=== PATIENT | female | born 1940 | race Caucasian/White ===

== ENCOUNTER 2017-08-31 00:20 | Inpatient (IN) ==
[2017-08-31] MEDS ORDERED: LEVOFLOXACIN INJ 750 MG in PREMIX 1 EACH IV STA (01:14)
[2017-08-31] MEDS ORDERED: ALBUTEROL/IPRATROPIUM 3 ML NEB RESP TX STA (01:14)
[2017-08-31] MEDS ORDERED: ONDANSETRON 4 MG/2 ML VIAL IM STA (01:14)
[2017-08-31] MEDS ORDERED: methylPREDNISolone SOD SUC 125 MG/2 ML VIAL IV STA (01:14)
[2017-08-31] MEDS ORDERED: ONDANSETRON 4 MG/2 ML VIAL ONE (01:22)
[2017-08-31] MEDS ORDERED: LEVOFLOXACIN INJ 150 ML IV ONE (01:22)
[2017-08-31] MEDS ORDERED: TERBUTALINE 1 MG/1 ML VIAL SUBCUT ONE (01:22)
[2017-08-31] MEDS ORDERED: methylPREDNISolone SOD SUC 125 MG/2 ML VIAL ONE (01:22)
[2017-08-31] MEDS: TERBUTALINE 1 MG/1 ML VIAL SUBCUT SCH ×3 (01:29→07:29)
[2017-08-31 01:39] LABS: Basophils % 0.3 % (0.0-0.8); Eosinophils # 0.2 10*3/uL (0.0-0.87); Eosinophils % 1.1 % (0.00-10.9); Hematocrit 34.4 VOL% (35.7-47.0); Hemoglobin 11.4 GM/DL (12.0-16.0); Immature Granulocytes % 0.6 %; Immature Granulocytes Absolute 0.08 #; Lymphocytes # 1.1 10*3/uL (1.4-4.0); Lymphocytes % 7.5 % (21.3-54.2); Mean Corpuscular HGB Conc 33.1 GM/DL (32-36); Mean Corpuscular Hemoglobin 30 PG (27-34); Mean Corpuscular Volume 89.1 FL (87-102); Mean Platelet Volume 9.3 FL (9.6-12.0); Monocytes # 0.7 10*3/uL (0.11-0.8); Monocytes % 5.2 % (1.7-12.7); Neutrophils # 11.9 10*3/uL (1.4-7.4); Neutrophils % 85.3 % (38.7-73.9); Platelet Count 283 T/CUMM (130-400); Red Blood Count 3.86 MC/CUMM (3.8-5.5); Red Cell Distribution Width 13.2 % (9.3-17.3)
[2017-08-31 01:52] LABS: PT Patient Result 10.8 SECS; Partial Thromboplastin Time 31.3 SECS (0-40)
[2017-08-31 02:01] LABS: Alanine Aminotransferase 24 U/L (13-56); Albumin 3.3 G/DL (3.4-5.0); Alkaline Phosphatase 124 U/L (45-117); Aspartate Amino Transferase 28 U/L (0-37); Blood Urea Nitrogen 17 MG/DL (7-18); Glucose 141 MG/DL (74-106); Osmolality,Calculated 273.1 MOS/KG (273-304); Sodium 135 MMOL/L (136-145); Total Protein 7.9 G/DL (6.4-8.3); Troponin I Only < 0.015 NG/ML (0.00-0.045)
[2017-08-31] MEDS ORDERED: ACETAMINOPHEN 500 MG TABLET ONE (02:15)
[2017-08-31] MEDS ORDERED: ACETAMINOPHEN 500 MG TABLET PO STA (02:15)
[2017-08-31 02:20] LABS: ABG Base Excess 7.1 MMOL/L (-2.5-2.5); ABG HCO3 32.6 MMOL/L (20-26); ABG Oxygen Saturation 75.4 % (95-100); ABG PCO2 50.3 MM HG (35-48); ABG PH 7.429 (7.35-7.45); ABG TCO2 34.1 MMOL/L (23-27)
[2017-08-31 02:35] LABS: ABG PO2 35.6 MM HG (80-95)
[2017-08-31 03:43] LABS: Apearance,Urine CLEAR (Clear); Bacteria,Urine Moderate /HPF (Few); Bilirubin,Urine Negative (Negative); Blood, Urine Small mg/dL (Negative); Glucose,Urine (UA) 50 mg/dL (Negative); Ketones,Urine Negative (Negative); Mucus,Urine Occasional /LPF (Occasional); Nitrite,Urine Negative (Negative); Protein,Urine Negative; RBC,Urine 1 /HPF (0-4); Urine Color Yellow (Yellow); Urine Specific Gravity 1.011 (1.001-1.035); Urine Urobilinogen < 2.0 EU/DL (0.2-1.0); WBC,Urine 12 /HPF (0-6)
[2017-08-31 03:50] LABS: Barbiturates Screen,Urine Negative (Negative); Benzodiazepines Screen,Urine Negative (Negative); Cannabinoid Screen,Urine Negative (Negative); Opiate Screen,Urine Positive (Negative); Phencyclidine Screen,Urine Negative (Negative)
[2017-08-31] MEDS ORDERED: SODIUM CHLORIDE 0.9% 500 ML IV ONE (04:45)
[2017-08-31] MEDS ORDERED: DEXTROSE 50% 25 GM/50 ML VIAL IV PRN (04:45)
[2017-08-31] MEDS ORDERED: GLUCAGON 1 MG VIAL IM PRN (04:45)
[2017-08-31] MEDS ORDERED: MORPHINE 2 MG/1 ML SYRINGE IV PRN (04:45)
[2017-08-31] MEDS ORDERED: ONDANSETRON 4 MG/2 ML VIAL IV PRN (04:45)
[2017-08-31] MEDS ORDERED: ALBUTEROL/IPRATROPIUM 3 ML NEB RESP TX PRN (04:45)
[2017-08-31 05:14] LABS: ABG HCO3 30.8 MMOL/L (20-26); ABG Oxygen Saturation 94.4 % (95-100); ABG PCO2 45.9 MM HG (35-48); ABG PH 7.445 (7.35-7.45); ABG PO2 75.5 MM HG (80-95); ABG TCO2 32.2 MMOL/L (23-27)
[2017-08-31] MEDS: SODIUM CHLORIDE 0.9% 1,000 ML IV SCH ×3 (06:55→21:57)
[2017-08-31] MEDS: ALBUTEROL/IPRATROPIUM 3 ML NEB RESP TX SCH ×5 (07:28→23:54)
[2017-08-31] MEDS: FOLIC ACID 0.4 MG TABLET PO SCH (08:46)
[2017-08-31] MEDS: PANTOPRAZOLE 40 MG TABLET PO SCH (08:47)
[2017-08-31] MEDS: INSULIN REGULAR 100 UNIT/ML SUBCUT SCH ×4 (08:47→20:44)
[2017-08-31] MEDS: DOCUSATE SODIUM 100 MG CAPSULE PO SCH ×2 (08:47→20:43)
[2017-08-31] MEDS: ENOXAPARIN 40 MG/0.4 ML SYRINGE SUBCUT SCH (08:47)
[2017-08-31] MEDS: CARVEDILOL 25 MG TABLET PO SCH ×2 (08:47→20:44)
[2017-08-31] MEDS: GABAPENTIN 400 MG CAPSULE PO SCH ×3 (08:47→20:44)
[2017-08-31] MEDS: oxyCODONE/ACETAMINOPHEN 5-325 MG TABLET PO PRN ×3 (10:00→21:59)
[2017-08-31] MEDS: amLODIPine 5 MG TABLET PO SCH (12:09)
[2017-08-31] MEDS: methylPREDNISolone SOD SUC 40 MG/1 ML VIAL IV SCH (15:10)
[2017-08-31] MEDS: DEXTROMETHORPHAN ER 6 MG/ML 90 ML/BOTTLE PO PRN (20:40)
[2017-08-31] MEDS: AMITRIPTYLINE 25 MG TABLET PO SCH (20:44)
[2017-08-31] MEDS ORDERED: SKIN HEALING OINT (AQUAPHOR) 50 GM TUBE TOP PRN (22:19)
[2017-09-01] MEDS: methylPREDNISolone SOD SUC 40 MG/1 ML VIAL IV SCH ×2 (02:42→14:04)
[2017-09-01] MEDS: ALBUTEROL/IPRATROPIUM 3 ML NEB RESP TX SCH ×6 (03:16→23:40)
[2017-09-01] MEDS: LEVOFLOXACIN INJ 750 MG in PREMIX 1 EACH IV SCH (05:12)
[2017-09-01] MEDS: SODIUM CHLORIDE 0.9% 1,000 ML IV SCH ×3 (05:17→15:57)
[2017-09-01] MEDS: LEVOTHYROXINE 100 MCG TABLET PO SCH (06:44)
[2017-09-01] MEDS: INSULIN REGULAR 100 UNIT/ML SUBCUT SCH ×4 (09:02→20:25)
[2017-09-01] MEDS: ENOXAPARIN 40 MG/0.4 ML SYRINGE SUBCUT SCH (09:02)
[2017-09-01] MEDS: PANTOPRAZOLE 40 MG TABLET PO SCH (09:03)
[2017-09-01] MEDS: GABAPENTIN 400 MG CAPSULE PO SCH ×3 (09:03→20:23)
[2017-09-01] MEDS: DOCUSATE SODIUM 100 MG CAPSULE PO SCH ×2 (09:03→20:22)
[2017-09-01] MEDS: FOLIC ACID 0.4 MG TABLET PO SCH (09:03)
[2017-09-01] MEDS: CARVEDILOL 25 MG TABLET PO SCH ×2 (09:03→20:23)
[2017-09-01] MEDS: oxyCODONE/ACETAMINOPHEN 5-325 MG TABLET PO PRN ×3 (09:07→23:07)
[2017-09-01] MEDS: amLODIPine 5 MG TABLET PO SCH (11:37)
[2017-09-01] MEDS: AMITRIPTYLINE 25 MG TABLET PO SCH (20:22)
[2017-09-01] MEDS: DEXTROMETHORPHAN ER 6 MG/ML 90 ML/BOTTLE PO PRN (20:41)
[2017-09-02] MEDS: SODIUM CHLORIDE 0.9% 1,000 ML IV SCH ×2 (01:04→10:08)
[2017-09-02] MEDS: methylPREDNISolone SOD SUC 40 MG/1 ML VIAL IV SCH ×2 (01:05→14:17)
[2017-09-02] MEDS: ALBUTEROL/IPRATROPIUM 3 ML NEB RESP TX SCH ×5 (03:40→22:51)
[2017-09-02] MEDS: LEVOFLOXACIN INJ 750 MG in PREMIX 1 EACH IV SCH (05:09)
[2017-09-02] MEDS: LEVOTHYROXINE 100 MCG TABLET PO SCH (05:51)
[2017-09-02 06:20] LABS: Basophils % 0.1 % (0.0-0.8); Hematocrit 29.3 VOL% (35.7-47.0); Hemoglobin 9.7 GM/DL (12.0-16.0); Immature Granulocytes % 1.2 %; Immature Granulocytes Absolute 0.11 #; Lymphocytes # 0.4 10*3/uL (1.4-4.0); Lymphocytes % 4.6 % (21.3-54.2); Mean Corpuscular HGB Conc 33.1 GM/DL (32-36); Mean Corpuscular Hemoglobin 29 PG (27-34); Mean Corpuscular Volume 88.8 FL (87-102); Mean Platelet Volume 9.6 FL (9.6-12.0); Monocytes # 0.1 10*3/uL (0.11-0.8); Monocytes % 1.3 % (1.7-12.7); Neutrophils # 8.7 10*3/uL (1.4-7.4); Neutrophils % 92.8 % (38.7-73.9); Platelet Count 273 T/CUMM (130-400); White Blood Count 9.4 T/CUMM (4-12)
[2017-09-02] MEDS: oxyCODONE/ACETAMINOPHEN 5-325 MG TABLET PO PRN ×3 (06:56→22:12)
[2017-09-02 06:58] LABS: Calcium 8.4 MG/DL (8.5-10.1); Osmolality,Calculated 285.3 MOS/KG (273-304); Potassium 4.1 MMOL/L (3.5-5.1)
[2017-09-02 07:03] LABS: Band Neutrophils 1 % (0-10); Eosinophils 1 % (0-10); Giant Platelets Few; Hypochromasia 1+; Lymphocytes 6 % (20-55); Platelet Estimate Adequate; Segmented Neutrophils 92 % (50-85); Total Cells Counted 100
[2017-09-02] MEDS: INSULIN REGULAR 100 UNIT/ML SUBCUT SCH ×4 (08:49→20:54)
[2017-09-02] MEDS: GABAPENTIN 400 MG CAPSULE PO SCH ×3 (08:50→20:54)
[2017-09-02] MEDS: FOLIC ACID 0.4 MG TABLET PO SCH (08:50)
[2017-09-02] MEDS: DOCUSATE SODIUM 100 MG CAPSULE PO SCH ×2 (08:50→20:53)
[2017-09-02] MEDS: ENOXAPARIN 40 MG/0.4 ML SYRINGE SUBCUT SCH (08:51)
[2017-09-02] MEDS: PANTOPRAZOLE 40 MG TABLET PO SCH (08:51)
[2017-09-02] MEDS: CARVEDILOL 25 MG TABLET PO SCH ×2 (08:51→20:53)
[2017-09-02] MEDS: FUROSEMIDE 40 MG TABLET PO SCH (14:16)
[2017-09-02] MEDS: amLODIPine 5 MG TABLET PO SCH (14:16)
[2017-09-02] MEDS: AMITRIPTYLINE 25 MG TABLET PO SCH (20:54)
[2017-09-02] MEDS: DEXTROMETHORPHAN ER 6 MG/ML 90 ML/BOTTLE PO PRN (20:59)
[2017-09-03] MEDS: methylPREDNISolone SOD SUC 40 MG/1 ML VIAL IV SCH ×2 (01:46→14:43)
[2017-09-03] MEDS: ALBUTEROL/IPRATROPIUM 3 ML NEB RESP TX SCH ×4 (03:04→14:24)
[2017-09-03] MEDS: LEVOFLOXACIN INJ 750 MG in PREMIX 1 EACH IV SCH (04:47)
[2017-09-03] MEDS: LEVOTHYROXINE 100 MCG TABLET PO SCH (05:40)
[2017-09-03] MEDS: oxyCODONE/ACETAMINOPHEN 5-325 MG TABLET PO PRN ×2 (05:45→11:15)
[2017-09-03] MEDS: INSULIN REGULAR 100 UNIT/ML SUBCUT SCH ×2 (09:57→12:27)
[2017-09-03] MEDS: DOCUSATE SODIUM 100 MG CAPSULE PO SCH (09:58)
[2017-09-03] MEDS: FUROSEMIDE 40 MG TABLET PO SCH (09:58)
[2017-09-03] MEDS: FOLIC ACID 0.4 MG TABLET PO SCH (09:58)
[2017-09-03] MEDS: CARVEDILOL 25 MG TABLET PO SCH (09:58)
[2017-09-03] MEDS: GABAPENTIN 400 MG CAPSULE PO SCH ×2 (09:58→14:44)
[2017-09-03] MEDS: PANTOPRAZOLE 40 MG TABLET PO SCH (09:59)
[2017-09-03] MEDS: ENOXAPARIN 40 MG/0.4 ML SYRINGE SUBCUT SCH (09:59)
[2017-09-03] MEDS: amLODIPine 5 MG TABLET PO SCH (11:15)
[2017-09-03 13:11] VITALS: BP 164/93
== END 2017-09-03 15:11 | disposition home health service (06) | DRG 193 ==
LOC: EDBD → EDUNIT# → N.ED 00:20 → N.EDINP 03:18 → SUATTDRO 03:18 → N.5E 04:16
PROVIDERS: ADMIT Internal Medicine Infectious Disease; ATTEND Internal Medicine

== ENCOUNTER 2017-09-12 19:09 | Inpatient (IN) ==
[2017-09-12] MEDS ORDERED: ACETAMINOPHEN 500 MG TABLET PO STA (19:32)
[2017-09-12] MEDS ORDERED: HYDROmorphone 2 MG/1 ML VIAL IV STA ×2 (19:32→20:51)
[2017-09-12] MEDS ORDERED: ONDANSETRON 4 MG/2 ML VIAL IV STA ×2 (19:32→20:51)
[2017-09-12] MEDS ORDERED: ONDANSETRON 4 MG/2 ML VIAL ONE (20:17)
[2017-09-12] MEDS ORDERED: HYDROmorphone 2 MG/1 ML VIAL ONE (20:17)
[2017-09-12] MEDS ORDERED: ACETAMINOPHEN 500 MG TABLET ONE (20:18)
[2017-09-12 21:13] LABS: Apearance,Urine CLEAR (Clear); Bilirubin,Urine Negative (Negative); Blood, Urine Negative (Negative); Glucose,Urine (UA) Negative (Negative); Ketones,Urine Negative (Negative); Nitrite,Urine Negative (Negative); Protein,Urine Negative; RBC,Urine 1 /HPF (0-4); Urine Color Straw (Yellow); Urine Specific Gravity 1.008 (1.001-1.035); Urine Urobilinogen < 2.0 EU/DL (0.2-1.0); WBC,Urine <1 /HPF (0-6)
[2017-09-12 21:23] LABS: Basophils % 0.2 % (0.0-0.8); Eosinophils # 0.3 10*3/uL (0.0-0.87); Eosinophils % 1.4 % (0.00-10.9); Hematocrit 31.5 VOL% (35.7-47.0); Hemoglobin 10.7 GM/DL (12.0-16.0); Immature Granulocytes % 0.5 %; Immature Granulocytes Absolute 0.09 #; Lymphocytes # 0.9 10*3/uL (1.4-4.0); Lymphocytes % 4.8 % (21.3-54.2); Mean Corpuscular Hemoglobin 30 PG (27-34); Mean Corpuscular Volume 87.5 FL (87-102); Mean Platelet Volume 9.3 FL (9.6-12.0); Monocytes % 5.5 % (1.7-12.7); Neutrophils # 16.2 10*3/uL (1.4-7.4); Neutrophils % 87.6 % (38.7-73.9); Platelet Count 271 T/CUMM (130-400); White Blood Count 18.5 T/CUMM (4-12)
[2017-09-12 21:31] LABS: PT Patient Result 10.7 SECS; Partial Thromboplastin Time 31.6 SECS (0-40)
[2017-09-12 22:12] LABS: Alanine Aminotransferase 19 U/L (13-56); Albumin 3.1 G/DL (3.4-5.0); Alkaline Phosphatase 111 U/L (45-117); Aspartate Amino Transferase 20 U/L (0-37); Blood Urea Nitrogen 14 MG/DL (7-18); Calcium 8.5 MG/DL (8.5-10.1); Glucose 147 MG/DL (74-106); Osmolality,Calculated 269.4 MOS/KG (273-304); Potassium 3.8 MMOL/L (3.5-5.1); Sodium 133 MMOL/L (136-145); Total Protein 6.4 G/DL (6.4-8.3); Troponin I Only < 0.015 NG/ML (0.00-0.045)
[2017-09-12 22:58] LABS: Eosinophils 2 % (0-10); Hypochromasia Slight; Lymphocytes 5 % (20-55); Platelet Estimate Normal; Segmented Neutrophils 93 % (50-85); Total Cells Counted 100
[2017-09-13] MEDS ORDERED: ONDANSETRON 4 MG/2 ML VIAL ONE (00:10)
[2017-09-13] MEDS ORDERED: ALBUTEROL 1.25 MG/3 ML NEB RESP TX PRN (01:32)
[2017-09-13] MEDS ORDERED: ONDANSETRON 4 MG/2 ML VIAL IV PRN (01:32)
[2017-09-13] MEDS ORDERED: ACETAMINOPHEN 325 MG TABLET PO PRN (01:32)
[2017-09-13] MEDS: SODIUM CHLORIDE 0.9% 1,000 ML IV SCH ×2 (02:28→14:16)
[2017-09-13] MEDS: CARVEDILOL 25 MG TABLET PO SCH ×3 (02:28→20:45)
[2017-09-13] MEDS: AMITRIPTYLINE 25 MG TABLET PO SCH ×2 (02:28→20:45)
[2017-09-13] MEDS: LEVOFLOXACIN INJ 750 MG in PREMIX 1 EACH IV SCH (02:28)
[2017-09-13] MEDS: oxyCODONE/ACETAMINOPHEN 5-325 MG TABLET PO PRN ×4 (02:38→16:05)
[2017-09-13] MEDS: ALBUTEROL 1.25 MG/3 ML NEB RESP TX SCH ×6 (04:07→23:58)
[2017-09-13 09:10] LABS: Basophils % 0.2 % (0.0-0.8); Eosinophils # 0.3 10*3/uL (0.0-0.87); Eosinophils % 2.5 % (0.00-10.9); Hematocrit 29.4 VOL% (35.7-47.0); Hemoglobin 9.6 GM/DL (12.0-16.0); Immature Granulocytes % 0.5 %; Immature Granulocytes Absolute 0.06 #; Lymphocytes # 0.8 10*3/uL (1.4-4.0); Lymphocytes % 7.3 % (21.3-54.2); Mean Corpuscular HGB Conc 32.7 GM/DL (32-36); Mean Corpuscular Hemoglobin 29 PG (27-34); Mean Corpuscular Volume 89.9 FL (87-102); Mean Platelet Volume 9.8 FL (9.6-12.0); Monocytes % 8.8 % (1.7-12.7); Neutrophils # 8.8 10*3/uL (1.4-7.4); Neutrophils % 80.7 % (38.7-73.9); Platelet Count 249 T/CUMM (130-400); Red Blood Count 3.27 MC/CUMM (3.8-5.5)
[2017-09-13] MEDS: FUROSEMIDE 40 MG TABLET PO SCH (09:30)
[2017-09-13] MEDS: GABAPENTIN 400 MG CAPSULE PO SCH ×3 (09:33→20:45)
[2017-09-13] MEDS: CALCIUM (CARBONATE)/VITAMIN D 500 MG-200 UNIT TABLET PO SCH (09:35)
[2017-09-13] MEDS: PANTOPRAZOLE 40 MG TABLET PO SCH (09:35)
[2017-09-13] MEDS: LEVOTHYROXINE 100 MCG TABLET PO SCH (09:36)
[2017-09-13] MEDS: FOLIC ACID 0.4 MG TABLET PO SCH (09:37)
[2017-09-13] MEDS: DOCUSATE SODIUM 100 MG CAPSULE PO SCH ×2 (09:38→20:45)
[2017-09-13] MEDS: ENOXAPARIN 40 MG/0.4 ML SYRINGE SUBCUT SCH (09:39)
[2017-09-13] MEDS: amLODIPine 5 MG TABLET PO SCH (12:56)
[2017-09-13] MEDS ORDERED: GLUCAGON 1 MG VIAL IM PRN (16:26)
[2017-09-13] MEDS ORDERED: DEXTROSE 50% 25 GM/50 ML VIAL IV PRN (16:26)
[2017-09-13] MEDS: INSULIN REGULAR 100 UNIT/ML SUBCUT SCH ×2 (16:57→21:06)
[2017-09-13] MEDS: HYDROmorphone 2 MG/1 ML VIAL IV PRN (20:44)
[2017-09-14] MEDS: SODIUM CHLORIDE 0.9% 1,000 ML IV SCH ×2 (00:34→22:50)
[2017-09-14] MEDS: LEVOFLOXACIN INJ 750 MG in PREMIX 1 EACH IV SCH (02:09)
[2017-09-14] MEDS: ALBUTEROL 1.25 MG/3 ML NEB RESP TX SCH ×6 (04:29→22:16)
[2017-09-14 05:27] LABS: Basophils % 0.1 % (0.0-0.8); Eosinophils # 0.3 10*3/uL (0.0-0.87); Eosinophils % 3.1 % (0.00-10.9); Hematocrit 27.7 VOL% (35.7-47.0); Hemoglobin 8.9 GM/DL (12.0-16.0); Immature Granulocytes % 0.5 %; Immature Granulocytes Absolute 0.04 #; Lymphocytes # 0.7 10*3/uL (1.4-4.0); Lymphocytes % 8.7 % (21.3-54.2); Mean Corpuscular HGB Conc 32.1 GM/DL (32-36); Mean Corpuscular Hemoglobin 29 PG (27-34); Mean Corpuscular Volume 89.4 FL (87-102); Mean Platelet Volume 9.6 FL (9.6-12.0); Monocytes # 0.8 10*3/uL (0.11-0.8); Monocytes % 9.9 % (1.7-12.7); Neutrophils # 6.4 10*3/uL (1.4-7.4); Neutrophils % 77.7 % (38.7-73.9); Platelet Count 250 T/CUMM (130-400); Red Cell Distribution Width 12.9 % (9.3-17.3); White Blood Count 8.3 T/CUMM (4-12)
[2017-09-14 05:35] LABS: Calcium 8.5 MG/DL (8.5-10.1)
[2017-09-14] MEDS: INSULIN REGULAR 100 UNIT/ML SUBCUT SCH ×4 (07:55→20:49)
[2017-09-14] MEDS: FUROSEMIDE 40 MG TABLET PO SCH (09:05)
[2017-09-14] MEDS: CARVEDILOL 25 MG TABLET PO SCH ×2 (09:05→20:13)
[2017-09-14] MEDS: FOLIC ACID 0.4 MG TABLET PO SCH (09:05)
[2017-09-14] MEDS: DOCUSATE SODIUM 100 MG CAPSULE PO SCH ×2 (09:05→20:13)
[2017-09-14] MEDS: GABAPENTIN 400 MG CAPSULE PO SCH ×3 (09:06→20:13)
[2017-09-14] MEDS: ENOXAPARIN 40 MG/0.4 ML SYRINGE SUBCUT SCH (09:06)
[2017-09-14] MEDS: oxyCODONE/ACETAMINOPHEN 5-325 MG TABLET PO PRN ×3 (09:07→19:25)
[2017-09-14] MEDS: LEVOTHYROXINE 100 MCG TABLET PO SCH (09:07)
[2017-09-14] MEDS: PANTOPRAZOLE 40 MG TABLET PO SCH (09:07)
[2017-09-14] MEDS: CALCIUM (CARBONATE)/VITAMIN D 500 MG-200 UNIT TABLET PO SCH (09:07)
[2017-09-14] MEDS: HYDROmorphone 2 MG/1 ML VIAL IV PRN (13:03)
[2017-09-14] MEDS: amLODIPine 5 MG TABLET PO SCH (14:40)
[2017-09-14] MEDS: AMITRIPTYLINE 25 MG TABLET PO SCH (20:13)
[2017-09-15] MEDS: LEVOFLOXACIN INJ 750 MG in PREMIX 1 EACH IV SCH (02:36)
[2017-09-15] MEDS: SODIUM CHLORIDE 0.9% 1,000 ML IV SCH ×2 (02:47→08:08)
[2017-09-15] MEDS: ALBUTEROL 1.25 MG/3 ML NEB RESP TX SCH ×5 (03:02→21:11)
[2017-09-15] MEDS: oxyCODONE/ACETAMINOPHEN 5-325 MG TABLET PO PRN ×3 (07:45→20:31)
[2017-09-15] MEDS: INSULIN REGULAR 100 UNIT/ML SUBCUT SCH ×4 (08:09→20:31)
[2017-09-15] MEDS: DOCUSATE SODIUM 100 MG CAPSULE PO SCH ×2 (11:08→20:31)
[2017-09-15] MEDS: FOLIC ACID 0.4 MG TABLET PO SCH (11:08)
[2017-09-15] MEDS: CALCIUM (CARBONATE)/VITAMIN D 500 MG-200 UNIT TABLET PO SCH (11:08)
[2017-09-15] MEDS: PANTOPRAZOLE 40 MG TABLET PO SCH (11:08)
[2017-09-15] MEDS: CARVEDILOL 25 MG TABLET PO SCH ×2 (11:08→20:31)
[2017-09-15] MEDS: FUROSEMIDE 40 MG TABLET PO SCH (11:08)
[2017-09-15] MEDS: LEVOTHYROXINE 100 MCG TABLET PO SCH (11:08)
[2017-09-15] MEDS: ENOXAPARIN 40 MG/0.4 ML SYRINGE SUBCUT SCH (11:08)
[2017-09-15] MEDS: GABAPENTIN 400 MG CAPSULE PO SCH ×3 (11:08→20:31)
[2017-09-15] MEDS: amLODIPine 5 MG TABLET PO SCH (11:52)
[2017-09-15] MEDS: predniSONE 20 MG TABLET PO SCH (18:06)
[2017-09-15] MEDS: AMITRIPTYLINE 25 MG TABLET PO SCH (20:31)
[2017-09-15] MEDS: BUDESONIDE/FORMOTEROL 160-4.5 INHALER 6 GM INH SCH (20:31)
[2017-09-16] MEDS: ALBUTEROL 1.25 MG/3 ML NEB RESP TX SCH ×7 (01:10→23:59)
[2017-09-16] MEDS: LEVOFLOXACIN INJ 750 MG in PREMIX 1 EACH IV SCH (01:32)
[2017-09-16] MEDS: oxyCODONE/ACETAMINOPHEN 5-325 MG TABLET PO PRN ×4 (06:35→20:35)
[2017-09-16] MEDS: GABAPENTIN 400 MG CAPSULE PO SCH ×3 (06:40→20:30)
[2017-09-16] MEDS: INSULIN REGULAR 100 UNIT/ML SUBCUT SCH ×4 (07:57→20:29)
[2017-09-16] MEDS: ENOXAPARIN 40 MG/0.4 ML SYRINGE SUBCUT SCH (09:55)
[2017-09-16] MEDS: FOLIC ACID 0.4 MG TABLET PO SCH (09:55)
[2017-09-16] MEDS: PANTOPRAZOLE 40 MG TABLET PO SCH (09:55)
[2017-09-16] MEDS: BUDESONIDE/FORMOTEROL 160-4.5 INHALER 6 GM INH SCH ×2 (09:55→20:35)
[2017-09-16] MEDS: FUROSEMIDE 40 MG TABLET PO SCH (09:56)
[2017-09-16] MEDS: CARVEDILOL 25 MG TABLET PO SCH ×2 (09:56→20:29)
[2017-09-16] MEDS: CALCIUM (CARBONATE)/VITAMIN D 500 MG-200 UNIT TABLET PO SCH (09:56)
[2017-09-16] MEDS: LEVOTHYROXINE 100 MCG TABLET PO SCH (09:56)
[2017-09-16] MEDS: DOCUSATE SODIUM 100 MG CAPSULE PO SCH ×2 (09:56→20:29)
[2017-09-16] MEDS: predniSONE 20 MG TABLET PO SCH (09:56)
[2017-09-16] MEDS: amLODIPine 5 MG TABLET PO SCH (12:19)
[2017-09-16] MEDS: AMITRIPTYLINE 25 MG TABLET PO SCH (20:29)
[2017-09-17] MEDS: LEVOFLOXACIN INJ 750 MG in PREMIX 1 EACH IV SCH (01:33)
[2017-09-17] MEDS: ALBUTEROL 1.25 MG/3 ML NEB RESP TX SCH ×6 (03:41→23:55)
[2017-09-17] MEDS: GABAPENTIN 400 MG CAPSULE PO SCH ×3 (04:42→20:47)
[2017-09-17] MEDS: oxyCODONE/ACETAMINOPHEN 5-325 MG TABLET PO PRN ×3 (04:43→20:52)
[2017-09-17] MEDS: INSULIN REGULAR 100 UNIT/ML SUBCUT SCH ×4 (09:24→21:29)
[2017-09-17] MEDS ORDERED: TUBERCULIN SKIN TEST 0.1 ML SYRINGE INTRADERM ONE (09:40)
[2017-09-17] MEDS: FOLIC ACID 0.4 MG TABLET PO SCH (10:06)
[2017-09-17] MEDS: predniSONE 20 MG TABLET PO SCH (10:07)
[2017-09-17] MEDS: CARVEDILOL 25 MG TABLET PO SCH ×2 (10:07→20:46)
[2017-09-17] MEDS: LEVOTHYROXINE 100 MCG TABLET PO SCH (10:08)
[2017-09-17] MEDS: PANTOPRAZOLE 40 MG TABLET PO SCH (10:09)
[2017-09-17] MEDS: ENOXAPARIN 40 MG/0.4 ML SYRINGE SUBCUT SCH (10:10)
[2017-09-17] MEDS: CALCIUM (CARBONATE)/VITAMIN D 500 MG-200 UNIT TABLET PO SCH (10:10)
[2017-09-17] MEDS: BUDESONIDE/FORMOTEROL 160-4.5 INHALER 6 GM INH SCH ×2 (10:12→20:45)
[2017-09-17] MEDS: DOCUSATE SODIUM 100 MG CAPSULE PO SCH ×2 (10:14→20:46)
[2017-09-17] MEDS: FUROSEMIDE 40 MG TABLET PO SCH (10:14)
[2017-09-17] MEDS: amLODIPine 5 MG TABLET PO SCH (12:50)
[2017-09-17] MEDS: POLYETHYLENE GLYCOL POWDER 17 GM PACK PO SCH (17:57)
[2017-09-17] MEDS: AMITRIPTYLINE 25 MG TABLET PO SCH (20:46)
[2017-09-18] MEDS: ALBUTEROL 1.25 MG/3 ML NEB RESP TX SCH ×5 (02:43→20:35)
[2017-09-18] MEDS: LEVOFLOXACIN INJ 750 MG in PREMIX 1 EACH IV SCH (03:00)
[2017-09-18] MEDS: GABAPENTIN 400 MG CAPSULE PO SCH ×3 (04:51→20:51)
[2017-09-18] MEDS: oxyCODONE/ACETAMINOPHEN 5-325 MG TABLET PO PRN ×3 (04:52→20:51)
[2017-09-18 07:24] LABS: Basophils % 0.4 % (0.0-0.8); Eosinophils # 0.2 10*3/uL (0.0-0.87); Eosinophils % 3.5 % (0.00-10.9); Hematocrit 28.8 VOL% (35.7-47.0); Hemoglobin 9.6 GM/DL (12.0-16.0); Immature Granulocytes % 0.7 %; Immature Granulocytes Absolute 0.04 #; Lymphocytes # 0.9 10*3/uL (1.4-4.0); Lymphocytes % 16.4 % (21.3-54.2); Mean Corpuscular HGB Conc 33.3 GM/DL (32-36); Mean Corpuscular Hemoglobin 29 PG (27-34); Mean Corpuscular Volume 87.8 FL (87-102); Mean Platelet Volume 8.9 FL (9.6-12.0); Monocytes # 0.5 10*3/uL (0.11-0.8); Monocytes % 8.7 % (1.7-12.7); Neutrophils # 3.9 10*3/uL (1.4-7.4); Neutrophils % 70.3 % (38.7-73.9); Platelet Count 255 T/CUMM (130-400); Red Blood Count 3.28 MC/CUMM (3.8-5.5); Red Cell Distribution Width 12.9 % (9.3-17.3); White Blood Count 5.5 T/CUMM (4-12)
[2017-09-18 07:54] LABS: Calcium 8.9 MG/DL (8.5-10.1); Osmolality,Calculated 278.4 MOS/KG (273-304); Potassium 3.8 MMOL/L (3.5-5.1)
[2017-09-18] MEDS: INSULIN REGULAR 100 UNIT/ML SUBCUT SCH ×4 (10:46→20:52)
[2017-09-18] MEDS: FOLIC ACID 0.4 MG TABLET PO SCH (10:53)
[2017-09-18] MEDS: POLYETHYLENE GLYCOL POWDER 17 GM PACK PO SCH (10:53)
[2017-09-18] MEDS: CALCIUM (CARBONATE)/VITAMIN D 500 MG-200 UNIT TABLET PO SCH (10:54)
[2017-09-18] MEDS: predniSONE 20 MG TABLET PO SCH (10:54)
[2017-09-18] MEDS: LEVOTHYROXINE 100 MCG TABLET PO SCH (10:54)
[2017-09-18] MEDS: PANTOPRAZOLE 40 MG TABLET PO SCH (10:55)
[2017-09-18] MEDS: DOCUSATE SODIUM 100 MG CAPSULE PO SCH ×2 (10:55→20:51)
[2017-09-18] MEDS: CARVEDILOL 25 MG TABLET PO SCH ×2 (10:55→20:51)
[2017-09-18] MEDS: ENOXAPARIN 40 MG/0.4 ML SYRINGE SUBCUT SCH (10:56)
[2017-09-18] MEDS: BUDESONIDE/FORMOTEROL 160-4.5 INHALER 6 GM INH SCH ×2 (10:57→20:52)
[2017-09-18] MEDS: amLODIPine 5 MG TABLET PO SCH (13:20)
[2017-09-18] MEDS: AMITRIPTYLINE 25 MG TABLET PO SCH (20:51)
[2017-09-19] MEDS: ALBUTEROL 1.25 MG/3 ML NEB RESP TX SCH ×4 (00:20→11:00)
[2017-09-19] MEDS: LEVOFLOXACIN INJ 750 MG in PREMIX 1 EACH IV SCH (01:10)
[2017-09-19] MEDS: GABAPENTIN 400 MG CAPSULE PO SCH ×2 (04:23→14:16)
[2017-09-19] MEDS: oxyCODONE/ACETAMINOPHEN 5-325 MG TABLET PO PRN ×2 (04:25→09:33)
[2017-09-19] MEDS: CALCIUM (CARBONATE)/VITAMIN D 500 MG-200 UNIT TABLET PO SCH (09:29)
[2017-09-19] MEDS: FOLIC ACID 0.4 MG TABLET PO SCH (09:29)
[2017-09-19] MEDS: predniSONE 20 MG TABLET PO SCH (09:29)
[2017-09-19] MEDS: DOCUSATE SODIUM 100 MG CAPSULE PO SCH (09:30)
[2017-09-19] MEDS: BUDESONIDE/FORMOTEROL 160-4.5 INHALER 6 GM INH SCH (09:30)
[2017-09-19] MEDS: PANTOPRAZOLE 40 MG TABLET PO SCH (09:30)
[2017-09-19] MEDS: LEVOTHYROXINE 100 MCG TABLET PO SCH (09:30)
[2017-09-19] MEDS: CARVEDILOL 25 MG TABLET PO SCH (09:30)
[2017-09-19] MEDS: POLYETHYLENE GLYCOL POWDER 17 GM PACK PO SCH (09:34)
[2017-09-19] MEDS: ENOXAPARIN 40 MG/0.4 ML SYRINGE SUBCUT SCH (09:36)
[2017-09-19 11:37] VITALS: BP 158/63
[2017-09-19] MEDS: amLODIPine 5 MG TABLET PO SCH (14:16)
[2017-09-19] MEDS: INSULIN REGULAR 100 UNIT/ML SUBCUT SCH (14:17)
== END 2017-09-19 12:00 | disposition swing bed (61) | DRG 562 ==
LOC: EDUNIT# → N.ED 19:09 → N.EDINP 23:13 → SUATTDRO 23:13 → N.3E 23:25
PROVIDERS: ADMIT Hospitalist; ATTEND Internal Medicine

== ENCOUNTER 2018-05-08 23:19 | Inpatient (IN) ==
[2018-05-08] MEDS ORDERED: cefTRIAXone 1,000 MG in SODIUM CHLORIDE 0.9% 100 ML IV STA (23:36)
[2018-05-08] MEDS ORDERED: methylPREDNISolone SOD SUC 125 MG/2 ML VIAL IV STA (23:36)
[2018-05-08] MEDS ORDERED: SODIUM CHLORIDE 0.9% 500 ML IV STA (23:36)
[2018-05-08] MEDS ORDERED: AZITHROMYCIN INJ 500 MG in SODIUM CHLORIDE 0.9% 250 ML IV STA (23:36)
[2018-05-08] MEDS ORDERED: ACETAMINOPHEN 500 MG TABLET PO STA (23:36)
[2018-05-08 23:54] LABS: Basophils % 0.2 % (0.0-0.8); Eosinophils # 0.2 10*3/uL (0.0-0.87); Eosinophils % 1.3 % (0.00-10.9); Hematocrit 35.7 VOL% (35.7-47.0); Hemoglobin 11.3 GM/DL (12.0-16.0); Immature Granulocytes % 0.5 %; Immature Granulocytes Absolute 0.08 #; Lymphocytes # 0.7 10*3/uL (1.4-4.0); Lymphocytes % 4.8 % (21.3-54.2); Mean Corpuscular HGB Conc 31.7 GM/DL (32-36); Mean Corpuscular Hemoglobin 28 PG (27-34); Mean Corpuscular Volume 89.5 FL (87-102); Mean Platelet Volume 9.4 FL (9.6-12.0); Monocytes # 0.7 10*3/uL (0.11-0.8); Monocytes % 5.1 % (1.7-12.7); Neutrophils # 12.8 10*3/uL (1.4-7.4); Neutrophils % 88.1 % (38.7-73.9); Platelet Count 271 T/CUMM (130-400); Red Blood Count 3.99 MC/CUMM (3.8-5.5); Red Cell Distribution Width 13.8 % (9.3-17.3); White Blood Count 14.6 T/CUMM (4-12)
[2018-05-09 00:03] LABS: INR 0.9; PT Patient Result 9.8 SECS; Partial Thromboplastin Time 23.1 SECS (0-40)
[2018-05-09 00:23] LABS: Alanine Aminotransferase 25 U/L (13-56); Albumin 3.3 G/DL (3.4-5.0); Alkaline Phosphatase 116 U/L (45-117); Aspartate Amino Transferase 21 U/L (0-37); Bilirubin,Total < 0.39 MG/DL (0.2-1.0); Blood Urea Nitrogen 27 MG/DL (7-18); Calcium 9.6 MG/DL (8.5-10.1); Glucose 195 MG/DL (74-106); Potassium 4.5 MMOL/L (3.5-5.1); Sodium 136 MMOL/L (136-145); Total Protein 7.9 G/DL (6.4-8.3); Troponin I Only < 0.015 NG/ML (0.00-0.045)
[2018-05-09 00:28] LABS: Apearance,Urine CLEAR (Clear); Bacteria,Urine Occasional /HPF (Few); Bilirubin,Urine Negative (Negative); Blood, Urine Small mg/dL (Negative); Glucose,Urine (UA) Negative (Negative); Hyaline Casts,Urine 25 /LPF (0-3); Ketones,Urine Negative (Negative); Mucus,Urine Occasional /LPF (Occasional); Nitrite,Urine Negative (Negative); Protein,Urine Negative; RBC,Urine 1 /HPF (0-4); Squamous Epithelial Cell,Urine Occasional /HPF (0-10); Urine Color Yellow (Yellow); Urine Specific Gravity 1.011 (1.001-1.035); Urine Urobilinogen < 2.0 EU/DL (0.2-1.0); WBC,Urine 1 /HPF (0-6)
[2018-05-09 00:51] LABS: Band Neutrophils 17 % (0-10); Lymphocytes 9 % (20-55); Segmented Neutrophils 73 % (50-85); Total Cells Counted 100
[2018-05-09] MEDS ORDERED: LACTULOSE 20 GM/30 ML UDCUP PO PRN (01:42)
[2018-05-09] MEDS ORDERED: ONDANSETRON 4 MG/2 ML VIAL IV PRN (01:42)
[2018-05-09] MEDS ORDERED: oxyCODONE/ACETAMINOPHEN 5-325 MG TABLET PO PRN (01:56)
[2018-05-09] MEDS ORDERED: SODIUM CHLORIDE 0.9% 1,000 ML IV SCH (02:00)
[2018-05-09] MEDS: PIPERACILLIN/TAZOBACTAM 3,375 MG in SODIUM CHLORIDE 0.9% 100 ML IV SCH ×3 (03:34→18:17)
[2018-05-09 05:16] LABS: Basophils % 0.1 % (0.0-0.8); Eosinophils % 0.2 % (0.00-10.9); Hematocrit 31.3 VOL% (35.7-47.0); Hemoglobin 9.9 GM/DL (12.0-16.0); Immature Granulocytes % 0.8 %; Immature Granulocytes Absolute 0.11 #; Lymphocytes # 0.5 10*3/uL (1.4-4.0); Lymphocytes % 3.6 % (21.3-54.2); Mean Corpuscular HGB Conc 31.6 GM/DL (32-36); Mean Corpuscular Hemoglobin 28 PG (27-34); Mean Corpuscular Volume 89.7 FL (87-102); Mean Platelet Volume 9.7 FL (9.6-12.0); Monocytes # 0.3 10*3/uL (0.11-0.8); Monocytes % 1.9 % (1.7-12.7); Neutrophils # 13.5 10*3/uL (1.4-7.4); Neutrophils % 93.4 % (38.7-73.9); Platelet Count 285 T/CUMM (130-400); Red Blood Count 3.49 MC/CUMM (3.8-5.5); Red Cell Distribution Width 13.9 % (9.3-17.3); White Blood Count 14.4 T/CUMM (4-12)
[2018-05-09 05:56] LABS: Band Neutrophils 21 % (0-10); Lymphocytes 1 % (20-55); Segmented Neutrophils 78 % (50-85); Total Cells Counted 100
[2018-05-09 05:57] LABS: Albumin 2.7 G/DL (3.4-5.0); Bilirubin,Total 0.5 MG/DL (0.2-1.0); Calcium 8.7 MG/DL (8.5-10.1); Osmolality,Calculated 291.4 MOS/KG (273-304); Polychromasia Slight; Potassium 4.4 MMOL/L (3.5-5.1); Total Protein 6.7 G/DL (6.4-8.3)
[2018-05-09] MEDS: LEVOTHYROXINE 100 MCG TABLET PO SCH (06:04)
[2018-05-09] MEDS ORDERED: VANCOMYCIN INJ 1,250 MG in SODIUM CHLORIDE 0.9% 250 ML IV SCH ×2 (07:00→08:00)
[2018-05-09] MEDS: ALBUTEROL/IPRATROPIUM 3 ML NEB RESP TX SCH ×3 (07:34→19:31)
[2018-05-09] MEDS ORDERED: [UNRECOGNIZED DRUG - OTHER] INH SCH (09:00)
[2018-05-09] MEDS ORDERED: PANTOPRAZOLE 40 MG TABLET PO SCH (09:00)
[2018-05-09] MEDS ORDERED: FLUTICASONE INH SCH (09:00)
[2018-05-09] MEDS ORDERED: VILANTER INH SCH (09:00)
[2018-05-09] MEDS: guaiFENesin/DM ER 600-30 MG TABLET PO SCH ×2 (09:04→20:07)
[2018-05-09] MEDS: GABAPENTIN 400 MG CAPSULE PO SCH ×3 (09:04→20:04)
[2018-05-09] MEDS: PANTOPRAZOLE 40 MG TABLET PO SCH (09:04)
[2018-05-09] MEDS: CARVEDILOL 25 MG TABLET PO SCH ×2 (09:04→16:49)
[2018-05-09] MEDS: methylPREDNISolone SOD SUC 40 MG/1 ML VIAL IV SCH ×2 (09:05→20:03)
[2018-05-09] MEDS: ENOXAPARIN 40 MG/0.4 ML SYRINGE SUBCUT SCH (09:05)
[2018-05-09] MEDS: BUDESONIDE/FORMOTEROL 160-4.5 INHALER 6 GM INH SCH ×2 (09:06→20:07)
[2018-05-09] MEDS: oxyCODONE/ACETAMINOPHEN 5-325 MG TABLET PO PRN ×3 (11:24→20:05)
[2018-05-09] MEDS: SODIUM CHLORIDE 0.9% 1,000 ML IV SCH ×2 (12:07→20:08)
[2018-05-09] MEDS: ACETAMINOPHEN 325 MG TABLET PO PRN (23:23)
[2018-05-10] MEDS: ALBUTEROL/IPRATROPIUM 3 ML NEB RESP TX SCH ×4 (00:28→19:30)
[2018-05-10] MEDS: diphenhydrAMINE CAP 25 MG CAPSULE PO PRN (00:56)
[2018-05-10] MEDS: VANCOMYCIN INJ 1,250 MG in SODIUM CHLORIDE 0.9% 250 ML IV SCH ×2 (02:27→21:55)
[2018-05-10] MEDS: SODIUM CHLORIDE 0.9% 1,000 ML IV SCH ×2 (02:28→12:38)
[2018-05-10] MEDS: PIPERACILLIN/TAZOBACTAM 3,375 MG in SODIUM CHLORIDE 0.9% 100 ML IV SCH ×3 (04:02→18:11)
[2018-05-10 06:01] LABS: Basophils % 0.1 % (0.0-0.8); Hematocrit 25.8 VOL% (35.7-47.0); Hemoglobin 8.5 GM/DL (12.0-16.0); Immature Granulocytes % 0.5 %; Immature Granulocytes Absolute 0.04 #; Lymphocytes # 0.4 10*3/uL (1.4-4.0); Lymphocytes % 4.9 % (21.3-54.2); Mean Corpuscular HGB Conc 32.9 GM/DL (32-36); Mean Corpuscular Hemoglobin 29 PG (27-34); Mean Corpuscular Volume 86.9 FL (87-102); Mean Platelet Volume 9.9 FL (9.6-12.0); Monocytes # 0.2 10*3/uL (0.11-0.8); Monocytes % 2.2 % (1.7-12.7); Neutrophils # 7.7 10*3/uL (1.4-7.4); Neutrophils % 92.3 % (38.7-73.9); Platelet Count 230 T/CUMM (130-400); Red Blood Count 2.97 MC/CUMM (3.8-5.5); Red Cell Distribution Width 13.6 % (9.3-17.3); White Blood Count 8.3 T/CUMM (4-12)
[2018-05-10] MEDS: oxyCODONE/ACETAMINOPHEN 5-325 MG TABLET PO PRN ×3 (06:07→21:45)
[2018-05-10] MEDS: LEVOTHYROXINE 100 MCG TABLET PO SCH (06:08)
[2018-05-10 06:24] LABS: Lymphocytes 3 % (20-55); Platelet Estimate Normal; Segmented Neutrophils 93 % (50-85); Total Cells Counted 100
[2018-05-10 06:40] LABS: Calcium 8.3 MG/DL (8.5-10.1); Osmolality,Calculated 290.7 MOS/KG (273-304); Potassium 4.1 MMOL/L (3.5-5.1)
[2018-05-10] MEDS: PANTOPRAZOLE 40 MG TABLET PO SCH (08:34)
[2018-05-10] MEDS: CARVEDILOL 25 MG TABLET PO SCH ×2 (08:34→16:20)
[2018-05-10] MEDS: ENOXAPARIN 40 MG/0.4 ML SYRINGE SUBCUT SCH (08:35)
[2018-05-10] MEDS: guaiFENesin/DM ER 600-30 MG TABLET PO SCH ×2 (08:35→21:45)
[2018-05-10] MEDS: methylPREDNISolone SOD SUC 40 MG/1 ML VIAL IV SCH ×2 (08:36→21:48)
[2018-05-10] MEDS: GABAPENTIN 400 MG CAPSULE PO SCH ×3 (08:36→21:45)
[2018-05-10] MEDS: BUDESONIDE/FORMOTEROL 160-4.5 INHALER 6 GM INH SCH ×2 (08:37→21:54)
[2018-05-10] MEDS: SUMAtriptan 25 MG TABLET PO PRN ×2 (10:37→13:38)
[2018-05-10] MEDS: INSULIN LISPRO 100 UNIT/ML SUBCUT SCH ×3 (12:39→21:47)
[2018-05-11] MEDS: ALBUTEROL/IPRATROPIUM 3 ML NEB RESP TX SCH ×4 (00:17→19:52)
[2018-05-11] MEDS: SODIUM CHLORIDE 0.9% 1,000 ML IV SCH (00:47)
[2018-05-11] MEDS: SUMAtriptan 25 MG TABLET PO PRN (01:11)
[2018-05-11 03:39] LABS: Hematocrit 29.9 VOL% (35.7-47.0); Hemoglobin 9.5 GM/DL (12.0-16.0); Immature Granulocytes % 1.6 %; Immature Granulocytes Absolute 0.15 #; Lymphocytes # 0.4 10*3/uL (1.4-4.0); Lymphocytes % 4.1 % (21.3-54.2); Mean Corpuscular HGB Conc 31.8 GM/DL (32-36); Mean Corpuscular Hemoglobin 28 PG (27-34); Mean Platelet Volume 9.6 FL (9.6-12.0); Monocytes # 0.3 10*3/uL (0.11-0.8); Monocytes % 2.8 % (1.7-12.7); Neutrophils # 8.6 10*3/uL (1.4-7.4); Neutrophils % 91.5 % (38.7-73.9); Platelet Count 244 T/CUMM (130-400); Red Blood Count 3.36 MC/CUMM (3.8-5.5); Red Cell Distribution Width 13.5 % (9.3-17.3); White Blood Count 9.4 T/CUMM (4-12)
[2018-05-11] MEDS: PIPERACILLIN/TAZOBACTAM 3,375 MG in SODIUM CHLORIDE 0.9% 100 ML IV SCH ×3 (03:48→16:14)
[2018-05-11 04:15] LABS: Osmolality,Calculated 286.8 MOS/KG (273-304); Potassium 4.4 MMOL/L (3.5-5.1)
[2018-05-11 04:37] LABS: Band Neutrophils 9 % (0-10); Lymphocytes 3 % (20-55); Segmented Neutrophils 88 % (50-85); Total Cells Counted 100
[2018-05-11] MEDS ORDERED: MORPHINE 4 MG/1 ML VIAL IV ONE ×2 (05:20→06:30)
[2018-05-11] MEDS ORDERED: FUROSEMIDE 40 MG/4 ML VIAL ONE (05:22)
[2018-05-11] MEDS ORDERED: MORPHINE 4 MG/1 ML VIAL ONE (05:27)
[2018-05-11] MEDS ORDERED: FUROSEMIDE 40 MG/4 ML VIAL IM ONE (05:30)
[2018-05-11] MEDS ORDERED: methylPREDNISolone SOD SUC 40 MG/1 ML VIAL IV ONE (05:30)
[2018-05-11] MEDS ORDERED: FUROSEMIDE 40 MG/4 ML VIAL IV ONE (05:30)
[2018-05-11] MEDS ORDERED: LEVALBUTEROL 1.25 MG/3 ML NEB RESP TX ONE (05:30)
[2018-05-11 06:03] LABS: ABG Base Excess 0.6 MMOL/L (-2.5-2.5); ABG HCO3 24.7 MMOL/L (20-26); ABG PCO2 56.2 MM HG (35-48); ABG PH 7.306 (7.35-7.45); ABG TCO2 25.4 MMOL/L (23-27)
[2018-05-11] MEDS ORDERED: LABETALOL 100 MG/20 ML VIAL IV ONE (06:15)
[2018-05-11 06:19] LABS: Osmolality,Calculated 288.8 MOS/KG (273-304); Potassium 4.3 MMOL/L (3.5-5.1)
[2018-05-11] MEDS ORDERED: CLORAZEPATE 3.75 MG TABLET PO ONE (06:30)
[2018-05-11] MEDS: LEVOTHYROXINE 100 MCG TABLET PO SCH (06:31)
[2018-05-11] MEDS: ENOXAPARIN 40 MG/0.4 ML SYRINGE SUBCUT SCH (08:54)
[2018-05-11] MEDS: INSULIN LISPRO 100 UNIT/ML SUBCUT SCH ×4 (08:54→20:53)
[2018-05-11] MEDS: GABAPENTIN 400 MG CAPSULE PO SCH ×3 (08:54→20:53)
[2018-05-11] MEDS: BUDESONIDE/FORMOTEROL 160-4.5 INHALER 6 GM INH SCH ×2 (08:55→20:53)
[2018-05-11] MEDS: guaiFENesin/DM ER 600-30 MG TABLET PO SCH ×2 (08:55→20:53)
[2018-05-11] MEDS: PANTOPRAZOLE 40 MG TABLET PO SCH (08:55)
[2018-05-11] MEDS: CARVEDILOL 25 MG TABLET PO SCH ×2 (08:55→16:45)
[2018-05-11] MEDS: FUROSEMIDE 40 MG/4 ML VIAL IV SCH ×2 (09:31→15:51)
[2018-05-11] MEDS: oxyCODONE/ACETAMINOPHEN 5-325 MG TABLET PO PRN ×2 (09:31→18:16)
[2018-05-11] MEDS: methylPREDNISolone SOD SUC 40 MG/1 ML VIAL IV SCH ×3 (09:32→20:49)
[2018-05-11] MEDS ORDERED: FUROSEMIDE 80 MG TABLET PO ONE (15:16)
[2018-05-11] MEDS ORDERED: prednisoLONE 5 MG TABLET PO SCH (15:17)
[2018-05-11] MEDS: VANCOMYCIN INJ 1,250 MG in SODIUM CHLORIDE 0.9% 250 ML IV SCH (20:52)
[2018-05-11] MEDS: ACETAMINOPHEN 325 MG TABLET PO PRN (20:55)
[2018-05-12] MEDS: PIPERACILLIN/TAZOBACTAM 3,375 MG in SODIUM CHLORIDE 0.9% 100 ML IV SCH ×3 (00:18→15:35)
[2018-05-12] MEDS: ALBUTEROL/IPRATROPIUM 3 ML NEB RESP TX SCH ×4 (00:36→20:18)
[2018-05-12] MEDS: oxyCODONE/ACETAMINOPHEN 5-325 MG TABLET PO PRN ×3 (03:41→21:12)
[2018-05-12 04:14] LABS: Osmolality,Calculated 291.7 MOS/KG (273-304); Potassium 3.4 MMOL/L (3.5-5.1)
[2018-05-12 04:26] LABS: Hematocrit 28.4 VOL% (35.7-47.0); Hemoglobin 9.3 GM/DL (12.0-16.0); Immature Granulocytes % 1.4 %; Immature Granulocytes Absolute 0.08 #; Lymphocytes # 0.3 10*3/uL (1.4-4.0); Lymphocytes % 5.9 % (21.3-54.2); Mean Corpuscular HGB Conc 32.7 GM/DL (32-36); Mean Corpuscular Hemoglobin 28 PG (27-34); Mean Corpuscular Volume 86.6 FL (87-102); Mean Platelet Volume 9.3 FL (9.6-12.0); Monocytes # 0.1 10*3/uL (0.11-0.8); Monocytes % 2.4 % (1.7-12.7); Neutrophils # 5.3 10*3/uL (1.4-7.4); Neutrophils % 90.3 % (38.7-73.9); Platelet Count 237 T/CUMM (130-400); Red Blood Count 3.28 MC/CUMM (3.8-5.5); Red Cell Distribution Width 13.3 % (9.3-17.3); White Blood Count 5.8 T/CUMM (4-12)
[2018-05-12] MEDS: LEVOTHYROXINE 100 MCG TABLET PO SCH (06:12)
[2018-05-12] MEDS: CARVEDILOL 25 MG TABLET PO SCH ×2 (07:49→17:37)
[2018-05-12] MEDS: INSULIN LISPRO 100 UNIT/ML SUBCUT SCH ×4 (07:49→21:12)
[2018-05-12] MEDS: PANTOPRAZOLE 40 MG TABLET PO SCH (07:49)
[2018-05-12] MEDS: ENOXAPARIN 40 MG/0.4 ML SYRINGE SUBCUT SCH (08:33)
[2018-05-12] MEDS: GABAPENTIN 400 MG CAPSULE PO SCH ×3 (08:34→21:12)
[2018-05-12] MEDS: FUROSEMIDE 40 MG/4 ML VIAL IV SCH (08:34)
[2018-05-12] MEDS: guaiFENesin/DM ER 600-30 MG TABLET PO SCH ×2 (08:34→21:12)
[2018-05-12] MEDS: methylPREDNISolone SOD SUC 40 MG/1 ML VIAL IV SCH ×2 (08:34→21:13)
[2018-05-12] MEDS: BUDESONIDE/FORMOTEROL 160-4.5 INHALER 6 GM INH SCH ×2 (08:35→21:20)
[2018-05-12] MEDS ORDERED: POTASSIUM CHLORIDE 20 MEQ TABLET PO ONE (10:27)
[2018-05-12] MEDS: hydrALAZINE 20 MG/1 ML VIAL IV PRN (21:16)
[2018-05-13] MEDS: PIPERACILLIN/TAZOBACTAM 3,375 MG in SODIUM CHLORIDE 0.9% 100 ML IV SCH (00:13)
[2018-05-13] MEDS: ALBUTEROL/IPRATROPIUM 3 ML NEB RESP TX SCH ×4 (01:37→19:34)
[2018-05-13 04:38] LABS: Basophils % 0.2 % (0.0-0.8); Hemoglobin 9.9 GM/DL (12.0-16.0); Immature Granulocytes % 4.4 %; Immature Granulocytes Absolute 0.22 #; Lymphocytes # 0.3 10*3/uL (1.4-4.0); Lymphocytes % 6.8 % (21.3-54.2); Mean Corpuscular Hemoglobin 28 PG (27-34); Mean Corpuscular Volume 85.7 FL (87-102); Mean Platelet Volume 9.3 FL (9.6-12.0); Monocytes # 0.2 10*3/uL (0.11-0.8); Monocytes % 3.4 % (1.7-12.7); Neutrophils # 4.3 10*3/uL (1.4-7.4); Neutrophils % 85.2 % (38.7-73.9); Platelet Count 241 T/CUMM (130-400); Red Cell Distribution Width 13.4 % (9.3-17.3)
[2018-05-13 05:08] LABS: Calcium 8.7 MG/DL (8.5-10.1); Osmolality,Calculated 295.4 MOS/KG (273-304); Potassium 3.5 MMOL/L (3.5-5.1)
[2018-05-13] MEDS: oxyCODONE/ACETAMINOPHEN 5-325 MG TABLET PO PRN ×3 (05:08→21:00)
[2018-05-13] MEDS: LEVOTHYROXINE 100 MCG TABLET PO SCH (06:28)
[2018-05-13] MEDS: PANTOPRAZOLE 40 MG TABLET PO SCH (09:58)
[2018-05-13] MEDS: guaiFENesin/DM ER 600-30 MG TABLET PO SCH ×2 (09:58→21:00)
[2018-05-13] MEDS: predniSONE 10 MG TABLET PO SCH (09:59)
[2018-05-13] MEDS: GABAPENTIN 400 MG CAPSULE PO SCH ×3 (09:59→21:00)
[2018-05-13] MEDS: BUDESONIDE/FORMOTEROL 160-4.5 INHALER 6 GM INH SCH ×2 (10:04→21:05)
[2018-05-13] MEDS: CARVEDILOL 25 MG TABLET PO SCH ×2 (10:04→18:29)
[2018-05-13] MEDS: ENOXAPARIN 40 MG/0.4 ML SYRINGE SUBCUT SCH (10:04)
[2018-05-13] MEDS: FUROSEMIDE 40 MG TABLET PO SCH (10:04)
[2018-05-13] MEDS: INSULIN LISPRO 100 UNIT/ML SUBCUT SCH ×4 (10:05→20:59)
[2018-05-13] MEDS: hydrALAZINE 20 MG/1 ML VIAL IV PRN (11:25)
[2018-05-13] MEDS ORDERED: NIFEdipine 10 MG CAPSULE PO PRN (12:30)
[2018-05-13] MEDS: LISINOPRIL 20 MG TABLET PO SCH (21:00)
[2018-05-14] MEDS: ALBUTEROL/IPRATROPIUM 3 ML NEB RESP TX SCH ×4 (01:45→20:25)
[2018-05-14 05:24] LABS: Basophils % 0.2 % (0.0-0.8); Eosinophils % 0.2 % (0.00-10.9); Hematocrit 32.7 VOL% (35.7-47.0); Hemoglobin 10.9 GM/DL (12.0-16.0); Immature Granulocytes Absolute 0.28 #; Mean Corpuscular HGB Conc 33.3 GM/DL (32-36); Mean Corpuscular Hemoglobin 28 PG (27-34); Mean Corpuscular Volume 84.5 FL (87-102); Mean Platelet Volume 9.2 FL (9.6-12.0); Monocytes # 0.4 10*3/uL (0.11-0.8); Monocytes % 7.2 % (1.7-12.7); Neutrophils # 3.9 10*3/uL (1.4-7.4); Neutrophils % 69.4 % (38.7-73.9); Platelet Count 276 T/CUMM (130-400); Red Blood Count 3.87 MC/CUMM (3.8-5.5); Red Cell Distribution Width 13.7 % (9.3-17.3); White Blood Count 5.6 T/CUMM (4-12)
[2018-05-14] MEDS: LEVOTHYROXINE 100 MCG TABLET PO SCH (05:46)
[2018-05-14 05:54] LABS: Calcium 8.4 MG/DL (8.5-10.1); Osmolality,Calculated 288.4 MOS/KG (273-304); Potassium 3.3 MMOL/L (3.5-5.1)
[2018-05-14] MEDS: INSULIN LISPRO 100 UNIT/ML SUBCUT SCH ×4 (08:46→23:37)
[2018-05-14] MEDS: FOLIC ACID 0.4 MG TABLET PO SCH (08:47)
[2018-05-14] MEDS: predniSONE 10 MG TABLET PO SCH (08:47)
[2018-05-14] MEDS: guaiFENesin/DM ER 600-30 MG TABLET PO SCH ×2 (08:47→21:21)
[2018-05-14] MEDS: LISINOPRIL 20 MG TABLET PO SCH ×2 (08:47→21:21)
[2018-05-14] MEDS: CARVEDILOL 25 MG TABLET PO SCH ×2 (08:47→16:33)
[2018-05-14] MEDS: FUROSEMIDE 40 MG TABLET PO SCH (08:47)
[2018-05-14] MEDS: ENOXAPARIN 40 MG/0.4 ML SYRINGE SUBCUT SCH (08:48)
[2018-05-14] MEDS: BUDESONIDE/FORMOTEROL 160-4.5 INHALER 6 GM INH SCH ×2 (08:49→21:25)
[2018-05-14] MEDS: PANTOPRAZOLE 40 MG TABLET PO SCH (08:50)
[2018-05-14] MEDS: oxyCODONE/ACETAMINOPHEN 5-325 MG TABLET PO PRN ×3 (10:10→21:22)
[2018-05-14] MEDS: GABAPENTIN 400 MG CAPSULE PO SCH ×3 (10:20→21:21)
[2018-05-14] MEDS ORDERED: cloNIDine 0.1 MG TABLET PO PRN (10:26)
[2018-05-14] MEDS: amLODIPine 5 MG TABLET PO SCH (11:49)
[2018-05-14] MEDS: POTASSIUM CHLORIDE 20 MEQ TABLET PO SCH ×3 (11:50→17:36)
[2018-05-14] MEDS: DICYCLOMINE 10 MG CAPSULE PO SCH ×3 (13:58→21:21)
[2018-05-14] MEDS: POTASSIUM CHLORIDE 20 MEQ TABLET PO PRN ×2 (21:21→23:28)
[2018-05-14] MEDS: diphenhydrAMINE CAP 25 MG CAPSULE PO PRN (23:28)
[2018-05-15] MEDS: INSULIN LISPRO 100 UNIT/ML SUBCUT SCH ×5 (00:23→22:40)
[2018-05-15] MEDS: ALBUTEROL/IPRATROPIUM 3 ML NEB RESP TX SCH ×4 (00:31→19:21)
[2018-05-15] MEDS: POTASSIUM CHLORIDE 20 MEQ TABLET PO PRN (03:18)
[2018-05-15 05:52] LABS: Basophils % 0.1 % (0.0-0.8); Eosinophils # 0.1 10*3/uL (0.0-0.87); Eosinophils % 1.5 % (0.00-10.9); Hematocrit 34.2 VOL% (35.7-47.0); Hemoglobin 11.2 GM/DL (12.0-16.0); Immature Granulocytes % 2.5 %; Immature Granulocytes Absolute 0.18 #; Lymphocytes # 1.2 10*3/uL (1.4-4.0); Lymphocytes % 17.2 % (21.3-54.2); Mean Corpuscular HGB Conc 32.7 GM/DL (32-36); Mean Corpuscular Hemoglobin 28 PG (27-34); Mean Corpuscular Volume 86.6 FL (87-102); Mean Platelet Volume 9.1 FL (9.6-12.0); Monocytes # 0.5 10*3/uL (0.11-0.8); Monocytes % 6.8 % (1.7-12.7); Neutrophils # 5.1 10*3/uL (1.4-7.4); Neutrophils % 71.9 % (38.7-73.9); Platelet Count 294 T/CUMM (130-400); Red Blood Count 3.95 MC/CUMM (3.8-5.5); White Blood Count 7.1 T/CUMM (4-12)
[2018-05-15] MEDS: LEVOTHYROXINE 100 MCG TABLET PO SCH (06:23)
[2018-05-15] MEDS: oxyCODONE/ACETAMINOPHEN 5-325 MG TABLET PO PRN ×3 (06:23→21:38)
[2018-05-15 06:29] LABS: Calcium 8.4 MG/DL (8.5-10.1); Osmolality,Calculated 286.3 MOS/KG (273-304); Potassium 4.1 MMOL/L (3.5-5.1)
[2018-05-15 07:02] LABS: Eosinophils 1 % (0-10); Hypochromasia 1+; Lymphocytes 24 % (20-55); Microcytosis 1+; Segmented Neutrophils 65 % (50-85); Total Cells Counted 100
[2018-05-15 07:03] LABS: Platelet Estimate Normal
[2018-05-15] MEDS: GABAPENTIN 400 MG CAPSULE PO SCH ×3 (10:01→21:38)
[2018-05-15] MEDS: FOLIC ACID 0.4 MG TABLET PO SCH (10:01)
[2018-05-15] MEDS: amLODIPine 5 MG TABLET PO SCH (10:01)
[2018-05-15] MEDS: FUROSEMIDE 40 MG TABLET PO SCH (10:01)
[2018-05-15] MEDS: LISINOPRIL 20 MG TABLET PO SCH ×2 (10:01→21:38)
[2018-05-15] MEDS: DICYCLOMINE 10 MG CAPSULE PO SCH ×4 (10:01→21:38)
[2018-05-15] MEDS: CARVEDILOL 25 MG TABLET PO SCH ×2 (10:01→16:42)
[2018-05-15] MEDS: PANTOPRAZOLE 40 MG TABLET PO SCH (10:01)
[2018-05-15] MEDS: guaiFENesin/DM ER 600-30 MG TABLET PO SCH ×2 (10:02→21:38)
[2018-05-15] MEDS: ENOXAPARIN 40 MG/0.4 ML SYRINGE SUBCUT SCH (10:02)
[2018-05-15] MEDS: predniSONE 10 MG TABLET PO SCH (10:02)
[2018-05-15] MEDS: LACTOBACILLUS RHAMNOSUS GG CAPSULE PO SCH (12:15)
[2018-05-15] MEDS: BUDESONIDE/FORMOTEROL 160-4.5 INHALER 6 GM INH SCH ×2 (12:15→22:38)
[2018-05-15] MEDS: diphenhydrAMINE CAP 25 MG CAPSULE PO PRN (21:39)
[2018-05-16] MEDS: ALBUTEROL/IPRATROPIUM 3 ML NEB RESP TX SCH ×4 (00:40→20:14)
[2018-05-16] MEDS ORDERED: GLUCAGON 1 MG VIAL IM PRN (07:35)
[2018-05-16] MEDS ORDERED: DEXTROSE 50% 25 GM/50 ML VIAL IV PRN (07:35)
[2018-05-16] MEDS: ENOXAPARIN 40 MG/0.4 ML SYRINGE SUBCUT SCH (08:39)
[2018-05-16] MEDS: INSULIN LISPRO 100 UNIT/ML SUBCUT SCH ×4 (08:39→20:03)
[2018-05-16] MEDS: PANTOPRAZOLE 40 MG TABLET PO SCH (08:39)
[2018-05-16] MEDS: LISINOPRIL 20 MG TABLET PO SCH ×2 (08:39→21:53)
[2018-05-16] MEDS: FOLIC ACID 0.4 MG TABLET PO SCH (08:39)
[2018-05-16] MEDS: FUROSEMIDE 40 MG TABLET PO SCH (08:40)
[2018-05-16] MEDS: LACTOBACILLUS RHAMNOSUS GG CAPSULE PO SCH (08:40)
[2018-05-16] MEDS: amLODIPine 10 MG TABLET PO SCH (08:40)
[2018-05-16] MEDS: CARVEDILOL 25 MG TABLET PO SCH ×2 (08:40→16:59)
[2018-05-16] MEDS: LEVOTHYROXINE 100 MCG TABLET PO SCH (08:40)
[2018-05-16] MEDS: predniSONE 10 MG TABLET PO SCH (08:40)
[2018-05-16] MEDS: DICYCLOMINE 10 MG CAPSULE PO SCH ×4 (08:40→21:51)
[2018-05-16] MEDS: GABAPENTIN 400 MG CAPSULE PO SCH ×3 (08:40→21:51)
[2018-05-16] MEDS: guaiFENesin/DM ER 600-30 MG TABLET PO SCH ×2 (08:40→21:53)
[2018-05-16] MEDS: oxyCODONE/ACETAMINOPHEN 5-325 MG TABLET PO PRN ×3 (08:41→21:54)
[2018-05-16] MEDS: BUDESONIDE/FORMOTEROL 160-4.5 INHALER 6 GM INH SCH ×2 (08:48→21:55)
[2018-05-16] MEDS: diphenhydrAMINE CAP 25 MG CAPSULE PO PRN (21:53)
[2018-05-17] MEDS: ALBUTEROL/IPRATROPIUM 3 ML NEB RESP TX SCH ×4 (00:13→20:22)
[2018-05-17] MEDS: LEVOTHYROXINE 100 MCG TABLET PO SCH (05:30)
[2018-05-17] MEDS: CARVEDILOL 25 MG TABLET PO SCH ×2 (08:25→16:10)
[2018-05-17] MEDS: amLODIPine 10 MG TABLET PO SCH (08:25)
[2018-05-17] MEDS: DICYCLOMINE 10 MG CAPSULE PO SCH ×4 (08:25→20:07)
[2018-05-17] MEDS: FOLIC ACID 0.4 MG TABLET PO SCH (08:25)
[2018-05-17] MEDS: GABAPENTIN 400 MG CAPSULE PO SCH ×3 (08:25→20:07)
[2018-05-17] MEDS: ENOXAPARIN 40 MG/0.4 ML SYRINGE SUBCUT SCH (08:25)
[2018-05-17] MEDS: LISINOPRIL 20 MG TABLET PO SCH ×2 (08:26→20:05)
[2018-05-17] MEDS: predniSONE 10 MG TABLET PO SCH (08:26)
[2018-05-17] MEDS: FUROSEMIDE 40 MG TABLET PO SCH (08:26)
[2018-05-17] MEDS: oxyCODONE/ACETAMINOPHEN 5-325 MG TABLET PO PRN ×3 (08:26→20:07)
[2018-05-17] MEDS: guaiFENesin/DM ER 600-30 MG TABLET PO SCH ×2 (08:26→20:07)
[2018-05-17] MEDS: PANTOPRAZOLE 40 MG TABLET PO SCH (08:26)
[2018-05-17] MEDS: LACTOBACILLUS RHAMNOSUS GG CAPSULE PO SCH (08:26)
[2018-05-17] MEDS: BUDESONIDE/FORMOTEROL 160-4.5 INHALER 6 GM INH SCH ×2 (08:27→20:12)
[2018-05-17] MEDS: INSULIN LISPRO 100 UNIT/ML SUBCUT SCH ×4 (08:27→20:05)
[2018-05-17] MEDS ORDERED: AMITRIPTYLINE 50 MG TABLET PO SCH (21:00)
[2018-05-17] MEDS: diphenhydrAMINE CAP 25 MG CAPSULE PO PRN (22:42)
[2018-05-18] MEDS: ALBUTEROL/IPRATROPIUM 3 ML NEB RESP TX SCH ×2 (01:23→07:30)
[2018-05-18] MEDS: LEVOTHYROXINE 100 MCG TABLET PO SCH (06:51)
[2018-05-18] MEDS: INSULIN LISPRO 100 UNIT/ML SUBCUT SCH ×2 (09:31→11:28)
[2018-05-18] MEDS: LISINOPRIL 20 MG TABLET PO SCH (09:32)
[2018-05-18] MEDS: FOLIC ACID 0.4 MG TABLET PO SCH (09:32)
[2018-05-18] MEDS: GABAPENTIN 400 MG CAPSULE PO SCH (09:32)
[2018-05-18] MEDS: DICYCLOMINE 10 MG CAPSULE PO SCH ×2 (09:32→13:10)
[2018-05-18] MEDS: LACTOBACILLUS RHAMNOSUS GG CAPSULE PO SCH (09:32)
[2018-05-18] MEDS: amLODIPine 10 MG TABLET PO SCH (09:33)
[2018-05-18] MEDS: CARVEDILOL 25 MG TABLET PO SCH (09:33)
[2018-05-18] MEDS: guaiFENesin/DM ER 600-30 MG TABLET PO SCH (09:33)
[2018-05-18] MEDS: ENOXAPARIN 40 MG/0.4 ML SYRINGE SUBCUT SCH (09:33)
[2018-05-18] MEDS: predniSONE 10 MG TABLET PO SCH (09:33)
[2018-05-18] MEDS: FUROSEMIDE 40 MG TABLET PO SCH (09:33)
[2018-05-18] MEDS: PANTOPRAZOLE 40 MG TABLET PO SCH (09:33)
[2018-05-18] MEDS: BUDESONIDE/FORMOTEROL 160-4.5 INHALER 6 GM INH SCH (09:34)
[2018-05-18] MEDS: oxyCODONE/ACETAMINOPHEN 5-325 MG TABLET PO PRN (09:41)
[2018-05-18] MEDS ORDERED: PNEUMOCOCCAL VACCINE (13 VALENT) 0.5 ML SYRINGE IM ONE (11:37)
[2018-05-18 11:46] VITALS: BP 94/45
== END 2018-05-18 13:25 | disposition home health service (06) | DRG 193 ==
LOC: EDBD → EDUNIT# → N.ED 23:19 → N.EDINP 05-09 01:42 → SUATTDRO 05-09 01:47 → N.2E 05-09 02:15 → N.CC 05-11 05:54 → N.TELEN 05-14 18:31
PROVIDERS: ADMIT Internal Medicine; ATTEND Hospitalist

== ENCOUNTER 2018-06-24 18:27 | Inpatient (IN) ==
[2018-06-24 20:05] LABS: Basophils % 0.2 % (0.0-0.8); Eosinophils # 0.1 10*3/uL (0.0-0.87); Eosinophils % 0.6 % (0.00-10.9); Hematocrit 31.5 VOL% (35.7-47.0); Hemoglobin 9.9 GM/DL (12.0-16.0); Immature Granulocytes % 0.4 %; Immature Granulocytes Absolute 0.05 #; Lymphocytes # 1.5 10*3/uL (1.4-4.0); Lymphocytes % 12.2 % (21.3-54.2); Mean Corpuscular HGB Conc 31.4 GM/DL (32-36); Mean Corpuscular Hemoglobin 28 PG (27-34); Mean Corpuscular Volume 89.2 FL (87-102); Mean Platelet Volume 9.3 FL (9.6-12.0); Monocytes # 0.8 10*3/uL (0.11-0.8); Monocytes % 6.1 % (1.7-12.7); Neutrophils # 10.2 10*3/uL (1.4-7.4); Neutrophils % 80.5 % (38.7-73.9); Platelet Count 324 T/CUMM (130-400); Red Blood Count 3.53 MC/CUMM (3.8-5.5); Red Cell Distribution Width 14.6 % (9.3-17.3); White Blood Count 12.6 T/CUMM (4-12)
[2018-06-24 20:10] LABS: Apearance,Urine CLEAR (Clear); Bacteria,Urine Few /HPF (Few); Bilirubin,Urine Negative (Negative); Blood, Urine Negative (Negative); Glucose,Urine (UA) Negative (Negative); Ketones,Urine Negative (Negative); Nitrite,Urine Negative (Negative); Protein,Urine Negative; RBC,Urine 1 /HPF (0-4); Urine Color Straw (Yellow); Urine Specific Gravity 1.003 (1.001-1.035); Urine Urobilinogen < 2.0 EU/DL (0.2-1.0); WBC,Urine 8 /HPF (0-6)
[2018-06-24 20:28] LABS: Alanine Aminotransferase 16 U/L (13-56); Albumin 3.3 G/DL (3.4-5.0); Alkaline Phosphatase 97 U/L (45-117); Aspartate Amino Transferase 17 U/L (0-37); Blood Urea Nitrogen 9 MG/DL (7-18); Calcium 8.5 MG/DL (8.5-10.1); Glucose 133 MG/DL (74-106); Osmolality,Calculated 283.1 MOS/KG (273-304); Potassium 3.4 MMOL/L (3.5-5.1); Sodium 142 MMOL/L (136-145); Total Protein 6.4 G/DL (6.4-8.3)
[2018-06-24 20:36] LABS: Lactic Acid < 0.3 MMOL/L (0.4-2.0)
[2018-06-24] MEDS ORDERED: SUMAtriptan 25 MG TABLET PO PRN (22:13)
[2018-06-24] MEDS ORDERED: MORPHINE 4 MG/1 ML VIAL IV PRN (23:02)
[2018-06-24] MEDS ORDERED: DEXTROSE 50% 25 GM/50 ML VIAL IV PRN (23:02)
[2018-06-24] MEDS ORDERED: ONDANSETRON 4 MG/2 ML VIAL IV PRN (23:02)
[2018-06-24] MEDS ORDERED: ACETAMINOPHEN 325 MG TABLET PO PRN (23:02)
[2018-06-24] MEDS ORDERED: ALBUTEROL/IPRATROPIUM 3 ML NEB RESP TX PRN (23:02)
[2018-06-24] MEDS ORDERED: diphenhydrAMINE CAP 25 MG CAPSULE PO PRN (23:02)
[2018-06-24] MEDS ORDERED: GLUCAGON 1 MG VIAL IM PRN (23:02)
[2018-06-24] MEDS ORDERED: LACTULOSE 20 GM/30 ML UDCUP PO PRN (23:02)
[2018-06-24] MEDS: AMITRIPTYLINE 25 MG TABLET PO SCH (23:45)
[2018-06-24] MEDS: GABAPENTIN 400 MG CAPSULE PO SCH (23:45)
[2018-06-25] MEDS: VANCOMYCIN INJ 1,250 MG in SODIUM CHLORIDE 0.9% 250 ML IV SCH ×2 (00:40→13:50)
[2018-06-25] MEDS: PIPERACILLIN/TAZOBACTAM 3,375 MG in SODIUM CHLORIDE 0.9% 100 ML IV SCH ×3 (01:41→17:45)
[2018-06-25] MEDS: LEVOTHYROXINE 100 MCG TABLET PO SCH (05:31)
[2018-06-25 05:46] LABS: Basophils % 0.3 % (0.0-0.8); Eosinophils # 0.1 10*3/uL (0.0-0.87); Eosinophils % 1.9 % (0.00-10.9); Hematocrit 28.2 VOL% (35.7-47.0); Hemoglobin 8.9 GM/DL (12.0-16.0); Immature Granulocytes % 0.5 %; Immature Granulocytes Absolute 0.03 #; Lymphocytes # 0.8 10*3/uL (1.4-4.0); Lymphocytes % 14.1 % (21.3-54.2); Mean Corpuscular HGB Conc 31.6 GM/DL (32-36); Mean Corpuscular Hemoglobin 28 PG (27-34); Mean Corpuscular Volume 88.7 FL (87-102); Mean Platelet Volume 9.7 FL (9.6-12.0); Monocytes # 0.3 10*3/uL (0.11-0.8); Monocytes % 5.2 % (1.7-12.7); Neutrophils # 4.5 10*3/uL (1.4-7.4); Platelet Count 277 T/CUMM (130-400); Red Blood Count 3.18 MC/CUMM (3.8-5.5); Red Cell Distribution Width 14.6 % (9.3-17.3); White Blood Count 5.8 T/CUMM (4-12)
[2018-06-25 06:13] LABS: Albumin 2.6 G/DL (3.4-5.0); Bilirubin,Total 0.7 MG/DL (0.2-1.0); Calcium 8.4 MG/DL (8.5-10.1); Potassium 2.9 MMOL/L (3.5-5.1); Total Protein 5.9 G/DL (6.4-8.3)
[2018-06-25] MEDS ORDERED: BUDESONIDE/FORMOTEROL 160-4.5 INHALER 6 GM INH SCH (09:00)
[2018-06-25] MEDS: GABAPENTIN 400 MG CAPSULE PO SCH ×3 (09:12→21:23)
[2018-06-25] MEDS: FOLIC ACID 0.4 MG TABLET PO SCH (09:12)
[2018-06-25] MEDS: PANTOPRAZOLE 40 MG TABLET PO SCH (09:13)
[2018-06-25] MEDS: POTASSIUM CHLORIDE 20 MEQ TABLET PO PRN ×4 (09:13→17:45)
[2018-06-25] MEDS: CARVEDILOL 25 MG TABLET PO SCH ×2 (09:13→17:45)
[2018-06-25] MEDS: FUROSEMIDE 40 MG/4 ML VIAL IV SCH ×2 (09:16→15:45)
[2018-06-25] MEDS: ENOXAPARIN 40 MG/0.4 ML SYRINGE SUBCUT SCH (09:19)
[2018-06-25] MEDS ORDERED: INFLUENZA VIRUS VACCINE 0.5 ML SYRINGE IM ONE (10:22)
[2018-06-25] MEDS ORDERED: CYANOCOBALAMIN 1000 MCG/1 ML VIAL IM ONE (10:22)
[2018-06-25] MEDS: amLODIPine 5 MG TABLET PO SCH (11:45)
[2018-06-25] MEDS: oxyCODONE/ACETAMINOPHEN 5-325 MG TABLET PO SCH (21:22)
[2018-06-25] MEDS: AMITRIPTYLINE 25 MG TABLET PO SCH (21:23)
[2018-06-26] MEDS: VANCOMYCIN INJ 1,250 MG in SODIUM CHLORIDE 0.9% 250 ML IV SCH ×2 (00:02→12:44)
[2018-06-26 01:58] LABS: Basophils % 0.4 % (0.0-0.8); Eosinophils # 0.3 10*3/uL (0.0-0.87); Eosinophils % 4.9 % (0.00-10.9); Hematocrit 28.5 VOL% (35.7-47.0); Hemoglobin 8.7 GM/DL (12.0-16.0); Immature Granulocytes % 0.5 %; Immature Granulocytes Absolute 0.03 #; Lymphocytes % 17.5 % (21.3-54.2); Mean Corpuscular HGB Conc 30.5 GM/DL (32-36); Mean Corpuscular Hemoglobin 28 PG (27-34); Mean Corpuscular Volume 90.5 FL (87-102); Mean Platelet Volume 9.5 FL (9.6-12.0); Monocytes # 0.6 10*3/uL (0.11-0.8); Monocytes % 9.7 % (1.7-12.7); Neutrophils # 3.8 10*3/uL (1.4-7.4); Platelet Count 275 T/CUMM (130-400); Red Blood Count 3.15 MC/CUMM (3.8-5.5); Red Cell Distribution Width 14.5 % (9.3-17.3); White Blood Count 5.7 T/CUMM (4-12)
[2018-06-26 02:12] LABS: Calcium 7.8 MG/DL (8.5-10.1); Osmolality,Calculated 281.3 MOS/KG (273-304); Potassium 3.5 MMOL/L (3.5-5.1)
[2018-06-26] MEDS: PIPERACILLIN/TAZOBACTAM 3,375 MG in SODIUM CHLORIDE 0.9% 100 ML IV SCH ×2 (02:32→09:47)
[2018-06-26] MEDS: oxyCODONE/ACETAMINOPHEN 5-325 MG TABLET PO SCH ×2 (06:05→12:46)
[2018-06-26] MEDS: LEVOTHYROXINE 100 MCG TABLET PO SCH (06:05)
[2018-06-26] MEDS ORDERED: MAGNESIUM SULF RIDER 4 GM in PREMIX 1 EACH IV PRN (09:14)
[2018-06-26] MEDS ORDERED: MAGNESIUM SULF RIDER 2 GM in PREMIX 1 EACH IV PRN (09:14)
[2018-06-26] MEDS: PANTOPRAZOLE 40 MG TABLET PO SCH (09:46)
[2018-06-26] MEDS: FUROSEMIDE 40 MG/4 ML VIAL IV SCH (09:46)
[2018-06-26] MEDS: GABAPENTIN 400 MG CAPSULE PO SCH (09:46)
[2018-06-26] MEDS: CARVEDILOL 25 MG TABLET PO SCH (09:46)
[2018-06-26] MEDS: FOLIC ACID 0.4 MG TABLET PO SCH (09:46)
[2018-06-26] MEDS: ENOXAPARIN 40 MG/0.4 ML SYRINGE SUBCUT SCH (09:47)
[2018-06-26] MEDS: amLODIPine 5 MG TABLET PO SCH (12:46)
[2018-06-26] MEDS ORDERED: GABAPENTIN 400 MG CAPSULE PO SCH (13:01)
[2018-06-26] MEDS ORDERED: AMITRIPTYLINE 25 MG TABLET PO SCH (13:01)
[2018-06-26 16:05] VITALS: BP 127/63
[2018-06-26] MEDS ORDERED: DICYCLOMINE 10 MG CAPSULE PO SCH (16:30)
[2018-06-27] MEDS ORDERED: VANCOMYCIN INJ 1,250 MG in SODIUM CHLORIDE 0.9% 250 ML IV SCH
== END 2018-06-26 16:40 | disposition home health service (06) | DRG 92 ==
LOC: EDUNIT# → EDBD → N.ED 18:27 → N.EDINP 22:04 → N.3E 22:36
PROVIDERS: ADMIT Internal Medicine; ATTEND Internal Medicine

== ENCOUNTER 2019-04-01 17:21 | Inpatient (IN) ==
[2019-04-01] MEDS ORDERED: ALBUTEROL/IPRATROPIUM 3 ML NEB RESP TX STA (18:29)
[2019-04-01] MEDS ORDERED: methylPREDNISolone SOD SUC 125 MG/2 ML VIAL IV STA (18:29)
[2019-04-01 18:45] LABS: Basophils # 0.1 10*3/uL (0.0-0.2); Basophils % 0.3 % (0.0-0.8); Hematocrit 33.1 VOL% (35.7-47.0); Hemoglobin 10.1 GM/DL (12.0-16.0); Immature Granulocytes % 0.7 %; Immature Granulocytes Absolute 0.13 #; Lymphocytes # 0.8 10*3/uL (1.4-4.0); Lymphocytes % 4.2 % (21.3-54.2); Mean Corpuscular HGB Conc 30.5 GM/DL (32-36); Mean Corpuscular Volume 88.7 FL (87-102); Mean Platelet Volume 10.1 FL (9.6-12.0); Neutrophils % 92.8 % (38.7-73.9); Platelet Count 267 T/CUMM (130-400); Red Blood Count 3.73 MC/CUMM (3.8-5.5); Red Cell Distribution Width 15.9 % (9.3-17.3); White Blood Count 18.5 T/CUMM (4-12)
[2019-04-01 19:14] LABS: Albumin 3.2 G/DL (3.4-5.0); Bilirubin,Total 0.6 MG/DL (0.2-1.0); Calcium 8.6 MG/DL (8.5-10.1); Total Protein 6.2 G/DL (6.4-8.3)
[2019-04-01 19:21] LABS: VBG Base Excess 6.1 MEQ/L (0-4); VBG PH 7.432
[2019-04-01 20:03] LABS: Lymphocytes 4 % (20-55); Microcytosis 1+; Platelet Estimate Adequate; Polychromasia Few; Segmented Neutrophils 94 % (50-85); Total Cells Counted 100
[2019-04-01 20:54] LABS: Apearance,Urine CLEAR (Clear); Bilirubin,Urine Negative (Negative); Blood, Urine Negative (Negative); Glucose,Urine (UA) 50 mg/dL (Negative); Hyaline Casts,Urine 46 /LPF (0-3); Ketones,Urine Negative (Negative); Mucus,Urine Occasional /LPF (Occasional); Nitrite,Urine Negative (Negative); Protein,Urine Negative; RBC,Urine <1 /HPF (0-4); Squamous Epithelial Cell,Urine Occasional /HPF (0-10); Urine Color Yellow (Yellow); Urine Specific Gravity 1.017 (1.001-1.035); Urine Urobilinogen < 2.0 EU/DL (0.2-1.0); WBC,Urine <1 /HPF (0-6)
[2019-04-01] MEDS ORDERED: SODIUM CHLORIDE 0.9% 500 ML IV STA (21:26)
[2019-04-01] MEDS ORDERED: DEXTROSE 50% 25 GM/50 ML VIAL IV PRN (22:04)
[2019-04-01] MEDS ORDERED: GLUCAGON 1 MG VIAL IM PRN (22:04)
[2019-04-01] MEDS ORDERED: DOCUSATE SODIUM 100 MG CAPSULE PO PRN (22:04)
[2019-04-01] MEDS ORDERED: ALBUTEROL 2.5 MG/3 ML NEB RESP TX PRN (22:04)
[2019-04-01] MEDS ORDERED: ACETAMINOPHEN 325 MG TABLET PO PRN (22:04)
[2019-04-01] MEDS ORDERED: GABAPENTIN 400 MG CAPSULE PO SCH (22:30)
[2019-04-01] MEDS: LEVOFLOXACIN INJ 750 MG in PREMIX 1 EACH IV SCH (23:20)
[2019-04-01] MEDS: ENOXAPARIN 40 MG/0.4 ML SYRINGE SUBCUT SCH (23:20)
[2019-04-01] MEDS: CARVEDILOL 25 MG TABLET PO SCH (23:20)
[2019-04-01] MEDS: AMITRIPTYLINE 25 MG TABLET PO SCH (23:20)
[2019-04-01] MEDS: INSULIN REGULAR 100 UNIT/ML SUBCUT SCH (23:21)
[2019-04-01] MEDS: oxyCODONE/ACETAMINOPHEN 5-325 MG TABLET PO SCH (23:21)
[2019-04-02] MEDS: ALBUTEROL/IPRATROPIUM 3 ML NEB RESP TX SCH ×4 (00:31→19:50)
[2019-04-02] MEDS: PIPERACILLIN/TAZOBACTAM 3,375 MG in SODIUM CHLORIDE 0.9% 100 ML IV SCH ×4 (00:53→23:30)
[2019-04-02 01:13] LABS: Basophils % 0.2 % (0.0-0.8); Hematocrit 32.8 VOL% (35.7-47.0); Hemoglobin 9.9 GM/DL (12.0-16.0); Immature Granulocytes % 0.7 %; Immature Granulocytes Absolute 0.09 #; Lymphocytes # 0.4 10*3/uL (1.4-4.0); Lymphocytes % 3.2 % (21.3-54.2); Mean Corpuscular HGB Conc 30.2 GM/DL (32-36); Mean Corpuscular Volume 88.9 FL (87-102); Mean Platelet Volume 9.7 FL (9.6-12.0); Monocytes % 0.5 % (1.7-12.7); Neutrophils % 95.4 % (38.7-73.9); Platelet Count 252 T/CUMM (130-400); Red Blood Count 3.69 MC/CUMM (3.8-5.5); Red Cell Distribution Width 15.9 % (9.3-17.3); White Blood Count 12.8 T/CUMM (4-12)
[2019-04-02 01:25] LABS: Calcium 8.9 MG/DL (8.5-10.1); Thyroid Stimulating Hormone 0.379 uIU/ml (0.358-3.74)
[2019-04-02 02:23] LABS: Lymphocytes 3 % (20-55); Segmented Neutrophils 95 % (50-85); Total Cells Counted 100
[2019-04-02 02:24] LABS: Anisocytosis Slight; Platelet Estimate Adequate
[2019-04-02] MEDS: oxyCODONE/ACETAMINOPHEN 5-325 MG TABLET PO SCH ×3 (05:29→21:07)
[2019-04-02] MEDS: LEVOTHYROXINE 100 MCG TABLET PO SCH (05:29)
[2019-04-02] MEDS ORDERED: AMITRIPTYLINE 25 MG TABLET PO SCH (09:00)
[2019-04-02] MEDS: FUROSEMIDE 80 MG TABLET PO SCH (09:49)
[2019-04-02] MEDS: POTASSIUM CHLORIDE 20 MEQ TABLET PO SCH (09:49)
[2019-04-02] MEDS: POTASSIUM GLUCONATE 500 MG TABLET PO SCH (09:49)
[2019-04-02] MEDS: MELOXICAM 7.5 MG TABLET PO SCH (09:49)
[2019-04-02] MEDS: PANTOPRAZOLE 40 MG TABLET PO SCH (09:49)
[2019-04-02] MEDS: FOLIC ACID 0.4 MG TABLET PO SCH (09:49)
[2019-04-02] MEDS: SILVER SULFADIAZINE 1% CREAM 25 GM TUBE TOP SCH (09:50)
[2019-04-02] MEDS: CARVEDILOL 25 MG TABLET PO SCH ×2 (09:50→16:51)
[2019-04-02] MEDS: predniSONE 20 MG TABLET PO SCH (09:50)
[2019-04-02] MEDS: INSULIN REGULAR 100 UNIT/ML SUBCUT SCH ×4 (09:58→21:09)
[2019-04-02] MEDS ORDERED: amLODIPine 5 MG TABLET PO SCH (12:00)
[2019-04-02] MEDS ORDERED: Fluticasone-Umeclidin-Vilanter [Trelegy Ellipta] INH SCH (12:00)
[2019-04-02] MEDS ORDERED: GABAPENTIN 400 MG CAPSULE PO SCH (15:00)
[2019-04-02] MEDS: GABAPENTIN 400 MG CAPSULE PO SCH ×2 (15:03→21:09)
[2019-04-02] MEDS: ONDANSETRON 4 MG/2 ML VIAL IV PRN (15:31)
[2019-04-02] MEDS: AMITRIPTYLINE 25 MG TABLET PO SCH (21:07)
[2019-04-02] MEDS: ENOXAPARIN 40 MG/0.4 ML SYRINGE SUBCUT SCH ×2 (21:09→21:11)
[2019-04-02] MEDS: INSULIN GLARGINE 100 UNIT/ML SUBCUT SCH (21:10)
[2019-04-02] MEDS: LEVOFLOXACIN INJ 750 MG in PREMIX 1 EACH IV SCH (21:11)
[2019-04-03] MEDS: ALBUTEROL/IPRATROPIUM 3 ML NEB RESP TX SCH ×4 (01:30→19:02)
[2019-04-03] MEDS: PIPERACILLIN/TAZOBACTAM 3,375 MG in SODIUM CHLORIDE 0.9% 100 ML IV SCH ×3 (06:31→23:22)
[2019-04-03] MEDS: oxyCODONE/ACETAMINOPHEN 5-325 MG TABLET PO SCH ×3 (06:32→22:11)
[2019-04-03] MEDS: PANTOPRAZOLE 40 MG TABLET PO SCH ×2 (06:37→22:12)
[2019-04-03] MEDS: LEVOTHYROXINE 100 MCG TABLET PO SCH (06:37)
[2019-04-03 06:50] LABS: Basophils % 0.2 % (0.0-0.8); Hematocrit 31.1 VOL% (35.7-47.0); Hemoglobin 9.5 GM/DL (12.0-16.0); Immature Granulocytes % 0.9 %; Lymphocytes # 0.9 10*3/uL (1.4-4.0); Lymphocytes % 7.9 % (21.3-54.2); Mean Corpuscular HGB Conc 30.5 GM/DL (32-36); Mean Corpuscular Volume 89.1 FL (87-102); Mean Platelet Volume 9.7 FL (9.6-12.0); Monocytes % 5.5 % (1.7-12.7); Neutrophils % 85.5 % (38.7-73.9); Platelet Count 237 T/CUMM (130-400); Red Blood Count 3.49 MC/CUMM (3.8-5.5); Red Cell Distribution Width 15.7 % (9.3-17.3); White Blood Count 10.9 T/CUMM (4-12)
[2019-04-03 07:05] LABS: Calcium 8.7 MG/DL (8.5-10.1); Osmolality,Calculated 284.5 MOS/KG (273-304)
[2019-04-03] MEDS: ONDANSETRON 4 MG/2 ML VIAL IV PRN (09:56)
[2019-04-03] MEDS: INSULIN REGULAR 100 UNIT/ML SUBCUT SCH ×4 (09:57→22:13)
[2019-04-03] MEDS: POTASSIUM GLUCONATE 500 MG TABLET PO SCH (09:58)
[2019-04-03] MEDS: predniSONE 20 MG TABLET PO SCH (09:59)
[2019-04-03] MEDS: FOLIC ACID 0.4 MG TABLET PO SCH (09:59)
[2019-04-03] MEDS: CARVEDILOL 25 MG TABLET PO SCH ×2 (09:59→18:14)
[2019-04-03] MEDS: GABAPENTIN 400 MG CAPSULE PO SCH ×3 (09:59→22:11)
[2019-04-03] MEDS: MELOXICAM 7.5 MG TABLET PO SCH ×2 (09:59→10:03)
[2019-04-03] MEDS: FUROSEMIDE 80 MG TABLET PO SCH (09:59)
[2019-04-03] MEDS: amLODIPine 5 MG TABLET PO SCH (12:21)
[2019-04-03] MEDS ORDERED: PANTOPRAZOLE 40 MG TABLET PO SCH (13:30)
[2019-04-03] MEDS: SODIUM CHLORIDE 0.9% 1,000 ML IV SCH (14:43)
[2019-04-03] MEDS: SILVER SULFADIAZINE 1% CREAM 25 GM TUBE TOP SCH (14:54)
[2019-04-03] MEDS ORDERED: HYOSCYAMINE 0.125 MG TABLET PO PRN (16:35)
[2019-04-03] MEDS: AMITRIPTYLINE 25 MG TABLET PO SCH (22:10)
[2019-04-03] MEDS: INSULIN GLARGINE 100 UNIT/ML SUBCUT SCH (22:12)
[2019-04-03] MEDS: ENOXAPARIN 40 MG/0.4 ML SYRINGE SUBCUT SCH (22:12)
[2019-04-03] MEDS: LEVOFLOXACIN INJ 750 MG in PREMIX 1 EACH IV SCH (22:13)
[2019-04-04] MEDS: ALBUTEROL/IPRATROPIUM 3 ML NEB RESP TX SCH ×4 (01:06→19:32)
[2019-04-04] MEDS: SODIUM CHLORIDE 0.9% 1,000 ML IV SCH (04:55)
[2019-04-04 06:43] LABS: Osmolality,Calculated 280.4 MOS/KG (273-304)
[2019-04-04] MEDS: LEVOTHYROXINE 100 MCG TABLET PO SCH (06:48)
[2019-04-04] MEDS: oxyCODONE/ACETAMINOPHEN 5-325 MG TABLET PO SCH ×3 (06:48→20:39)
[2019-04-04] MEDS: PIPERACILLIN/TAZOBACTAM 3,375 MG in SODIUM CHLORIDE 0.9% 100 ML IV SCH ×3 (06:48→22:50)
[2019-04-04 07:24] LABS: Basophils % 0.1 % (0.0-0.8); Eosinophils % 0.2 % (0.00-10.9); Hematocrit 32.8 VOL% (35.7-47.0); Hemoglobin 10.2 GM/DL (12.0-16.0); Immature Granulocytes Absolute 0.09 #; Lymphocytes % 11.9 % (21.3-54.2); Mean Corpuscular HGB Conc 31.1 GM/DL (32-36); Mean Corpuscular Volume 87.9 FL (87-102); Mean Platelet Volume 9.5 FL (9.6-12.0); Monocytes % 6.9 % (1.7-12.7); Neutrophils % 79.9 % (38.7-73.9); Platelet Count 239 T/CUMM (130-400); Red Blood Count 3.73 MC/CUMM (3.8-5.5); Red Cell Distribution Width 15.6 % (9.3-17.3); White Blood Count 8.7 T/CUMM (4-12)
[2019-04-04] MEDS: INSULIN REGULAR 100 UNIT/ML SUBCUT SCH ×4 (07:48→20:38)
[2019-04-04] MEDS: GABAPENTIN 400 MG CAPSULE PO SCH ×3 (10:12→20:39)
[2019-04-04] MEDS: PANTOPRAZOLE 40 MG TABLET PO SCH ×2 (10:17→20:40)
[2019-04-04] MEDS: predniSONE 20 MG TABLET PO SCH (10:17)
[2019-04-04] MEDS: FUROSEMIDE 80 MG TABLET PO SCH (10:18)
[2019-04-04] MEDS: CARVEDILOL 25 MG TABLET PO SCH ×2 (10:18→16:38)
[2019-04-04] MEDS: POTASSIUM GLUCONATE 500 MG TABLET PO SCH (10:18)
[2019-04-04] MEDS: FOLIC ACID 0.4 MG TABLET PO SCH (10:18)
[2019-04-04] MEDS: amLODIPine 5 MG TABLET PO SCH (12:55)
[2019-04-04] MEDS: SILVER SULFADIAZINE 1% CREAM 25 GM TUBE TOP SCH (16:38)
[2019-04-04] MEDS: AMITRIPTYLINE 25 MG TABLET PO SCH (20:39)
[2019-04-04] MEDS: LEVOFLOXACIN INJ 750 MG in PREMIX 1 EACH IV SCH (20:40)
[2019-04-04] MEDS: ENOXAPARIN 40 MG/0.4 ML SYRINGE SUBCUT SCH (20:40)
[2019-04-04] MEDS: LOPERAMIDE 2 MG CAPSULE PO PRN (20:40)
[2019-04-05] MEDS: ALBUTEROL/IPRATROPIUM 3 ML NEB RESP TX SCH ×4 (00:53→19:58)
[2019-04-05] MEDS: SODIUM CHLORIDE 0.9% 1,000 ML IV SCH ×2 (03:24→08:22)
[2019-04-05 05:11] LABS: Basophils % 0.2 % (0.0-0.8); Eosinophils % 0.4 % (0.00-10.9); Hematocrit 35.6 VOL% (35.7-47.0); Hemoglobin 10.7 GM/DL (12.0-16.0); Immature Granulocytes % 1.4 %; Immature Granulocytes Absolute 0.08 #; Lymphocytes # 0.9 10*3/uL (1.4-4.0); Lymphocytes % 15.2 % (21.3-54.2); Mean Corpuscular HGB Conc 30.1 GM/DL (32-36); Mean Corpuscular Volume 89.2 FL (87-102); Mean Platelet Volume 9.4 FL (9.6-12.0); Monocytes % 7.8 % (1.7-12.7); Platelet Count 228 T/CUMM (130-400); Red Blood Count 3.99 MC/CUMM (3.8-5.5); Red Cell Distribution Width 15.3 % (9.3-17.3); White Blood Count 5.7 T/CUMM (4-12)
[2019-04-05 05:42] LABS: Calcium 9.4 MG/DL (8.5-10.1)
[2019-04-05] MEDS: oxyCODONE/ACETAMINOPHEN 5-325 MG TABLET PO SCH ×3 (06:38→17:35)
[2019-04-05] MEDS: LEVOTHYROXINE 100 MCG TABLET PO SCH (06:38)
[2019-04-05] MEDS: PIPERACILLIN/TAZOBACTAM 3,375 MG in SODIUM CHLORIDE 0.9% 100 ML IV SCH ×2 (06:39→14:09)
[2019-04-05] MEDS: INSULIN REGULAR 100 UNIT/ML SUBCUT SCH ×4 (08:21→22:11)
[2019-04-05] MEDS ORDERED: LIDOCAINE 2% 5 ML VIAL ONE (10:00)
[2019-04-05] MEDS ORDERED: ETOMIDATE 20 MG/10 ML VIAL IV ONE (10:00)
[2019-04-05] MEDS ORDERED: PROPOFOL 200 MG/20 ML VIAL IV ONE (10:00)
[2019-04-05] MEDS: FUROSEMIDE 80 MG TABLET PO SCH (10:24)
[2019-04-05] MEDS: GABAPENTIN 400 MG CAPSULE PO SCH ×3 (10:24→22:10)
[2019-04-05] MEDS: FOLIC ACID 0.4 MG TABLET PO SCH (10:24)
[2019-04-05] MEDS: POTASSIUM CHLORIDE 20 MEQ TABLET PO SCH (10:24)
[2019-04-05] MEDS: CARVEDILOL 25 MG TABLET PO SCH ×2 (10:24→17:35)
[2019-04-05] MEDS: POTASSIUM GLUCONATE 500 MG TABLET PO SCH (10:24)
[2019-04-05] MEDS: PANTOPRAZOLE 40 MG TABLET PO SCH ×2 (10:25→22:10)
[2019-04-05] MEDS: predniSONE 20 MG TABLET PO SCH (10:25)
[2019-04-05 10:32] LABS: Alanine Aminotransferase 14 U/L (13-56); Albumin 3.2 G/DL (3.4-5.0); Alkaline Phosphatase 65 U/L (45-117); Aspartate Amino Transferase 15 U/L (0-37); Bilirubin,Direct < 0.100 MG/DL (0.0-0.20); Bilirubin,Indirect 0.3 MG/DL (0.0-1.0); Total Protein 6.4 G/DL (6.4-8.3)
[2019-04-05] MEDS: amLODIPine 5 MG TABLET PO SCH (13:16)
[2019-04-05] MEDS: DICYCLOMINE 10 MG CAPSULE PO SCH ×3 (13:17→22:11)
[2019-04-05] MEDS: SILVER SULFADIAZINE 1% CREAM 25 GM TUBE TOP SCH (14:15)
[2019-04-05] MEDS: LEVOFLOXACIN INJ 750 MG in PREMIX 1 EACH IV SCH (22:05)
[2019-04-05] MEDS: ENOXAPARIN 40 MG/0.4 ML SYRINGE SUBCUT SCH (22:09)
[2019-04-05] MEDS: AMITRIPTYLINE 25 MG TABLET PO SCH (22:10)
[2019-04-06] MEDS: ALBUTEROL/IPRATROPIUM 3 ML NEB RESP TX SCH ×4 (00:34→19:10)
[2019-04-06] MEDS: oxyCODONE/ACETAMINOPHEN 5-325 MG TABLET PO SCH ×4 (00:46→21:03)
[2019-04-06] MEDS: LOPERAMIDE 2 MG CAPSULE PO PRN ×2 (00:47→21:03)
[2019-04-06] MEDS: PIPERACILLIN/TAZOBACTAM 3,375 MG in SODIUM CHLORIDE 0.9% 100 ML IV SCH ×4 (00:47→23:11)
[2019-04-06] MEDS: LEVOTHYROXINE 100 MCG TABLET PO SCH (06:43)
[2019-04-06] MEDS: POTASSIUM GLUCONATE 500 MG TABLET PO SCH (08:28)
[2019-04-06] MEDS: FOLIC ACID 0.4 MG TABLET PO SCH (08:28)
[2019-04-06] MEDS: GABAPENTIN 400 MG CAPSULE PO SCH ×3 (08:28→21:03)
[2019-04-06] MEDS: INSULIN REGULAR 100 UNIT/ML SUBCUT SCH ×4 (08:28→21:04)
[2019-04-06] MEDS: PANTOPRAZOLE 40 MG TABLET PO SCH ×2 (08:28→21:03)
[2019-04-06] MEDS: DICYCLOMINE 10 MG CAPSULE PO SCH ×4 (08:28→21:03)
[2019-04-06] MEDS: predniSONE 20 MG TABLET PO SCH (08:29)
[2019-04-06] MEDS: CARVEDILOL 25 MG TABLET PO SCH ×2 (08:29→16:40)
[2019-04-06] MEDS: FUROSEMIDE 80 MG TABLET PO SCH (08:29)
[2019-04-06] MEDS: amLODIPine 5 MG TABLET PO SCH (12:16)
[2019-04-06] MEDS ORDERED: POTASSIUM CHLORIDE 10 MEQ TABLET PO ONE (15:18)
[2019-04-06] MEDS: SILVER SULFADIAZINE 1% CREAM 25 GM TUBE TOP SCH (15:24)
[2019-04-06] MEDS: SODIUM CHLORIDE 0.9% 1,000 ML IV SCH (18:03)
[2019-04-06] MEDS: ONDANSETRON 4 MG/2 ML VIAL IV PRN (19:44)
[2019-04-06] MEDS: LEVOFLOXACIN INJ 750 MG in PREMIX 1 EACH IV SCH (21:02)
[2019-04-06] MEDS: AMITRIPTYLINE 25 MG TABLET PO SCH (21:03)
[2019-04-06] MEDS: ENOXAPARIN 40 MG/0.4 ML SYRINGE SUBCUT SCH (21:05)
[2019-04-07] MEDS: ALBUTEROL/IPRATROPIUM 3 ML NEB RESP TX SCH ×2 (00:39→07:17)
[2019-04-07 05:36] LABS: Osmolality,Calculated 284.3 MOS/KG (273-304)
[2019-04-07] MEDS: PIPERACILLIN/TAZOBACTAM 3,375 MG in SODIUM CHLORIDE 0.9% 100 ML IV SCH (06:04)
[2019-04-07] MEDS: LEVOTHYROXINE 100 MCG TABLET PO SCH (06:04)
[2019-04-07] MEDS: oxyCODONE/ACETAMINOPHEN 5-325 MG TABLET PO SCH ×2 (06:04→11:37)
[2019-04-07 06:50] LABS: Basophils % 0.2 % (0.0-0.8); Eosinophils # 0.1 10*3/uL (0.0-0.87); Eosinophils % 0.9 % (0.00-10.9); Hematocrit 37.5 VOL% (35.7-47.0); Hemoglobin 11.3 GM/DL (12.0-16.0); Immature Granulocytes Absolute 0.19 #; Lymphocytes # 1.1 10*3/uL (1.4-4.0); Mean Corpuscular HGB Conc 30.1 GM/DL (32-36); Mean Corpuscular Volume 89.7 FL (87-102); Mean Platelet Volume 9.4 FL (9.6-12.0); Monocytes % 7.2 % (1.7-12.7); Neutrophils % 77.7 % (38.7-73.9); Platelet Count 274 T/CUMM (130-400); Red Blood Count 4.18 MC/CUMM (3.8-5.5); Red Cell Distribution Width 15.5 % (9.3-17.3); White Blood Count 9.3 T/CUMM (4-12)
[2019-04-07] MEDS: POTASSIUM CHLORIDE 20 MEQ TABLET PO PRN ×3 (07:02→11:36)
[2019-04-07] MEDS: INSULIN REGULAR 100 UNIT/ML SUBCUT SCH ×2 (08:09→11:37)
[2019-04-07] MEDS: POTASSIUM CHLORIDE 20 MEQ TABLET PO SCH (08:46)
[2019-04-07] MEDS: GABAPENTIN 400 MG CAPSULE PO SCH (08:46)
[2019-04-07] MEDS: predniSONE 20 MG TABLET PO SCH (08:46)
[2019-04-07] MEDS: POTASSIUM GLUCONATE 500 MG TABLET PO SCH (08:46)
[2019-04-07] MEDS: PANTOPRAZOLE 40 MG TABLET PO SCH (08:46)
[2019-04-07] MEDS: DICYCLOMINE 10 MG CAPSULE PO SCH ×3 (08:46→14:33)
[2019-04-07] MEDS: FOLIC ACID 0.4 MG TABLET PO SCH (08:46)
[2019-04-07] MEDS: CARVEDILOL 25 MG TABLET PO SCH (08:46)
[2019-04-07] MEDS: FUROSEMIDE 80 MG TABLET PO SCH (08:46)
[2019-04-07] MEDS: ONDANSETRON 4 MG/2 ML VIAL IV PRN (08:58)
[2019-04-07] MEDS: MELOXICAM 7.5 MG TABLET PO SCH (09:36)
[2019-04-07] MEDS ORDERED: POTASSIUM CHLORIDE 10 MEQ TABLET PO ONE (10:51)
[2019-04-07 11:24] VITALS: BP 161/80
[2019-04-07] MEDS: SILVER SULFADIAZINE 1% CREAM 25 GM TUBE TOP SCH (11:31)
[2019-04-07] MEDS: amLODIPine 5 MG TABLET PO SCH (11:36)
== END 2019-04-07 14:35 | disposition home health service (06) | DRG 194 ==
LOC: N.ED 17:21 → N.5E 20:57 → INTOOBSV 20:57 → N.5E 21:48
PROVIDERS: ADMIT Internal Medicine; ATTEND Internal Medicine

== ENCOUNTER 2019-04-19 03:35 | Observation (INO) ==
[2019-04-19 05:10] LABS: ABG Base Excess 7.4 MMOL/L (-2.5-2.5); ABG HCO3 31.2 MMOL/L (20-26); ABG Oxygen Saturation 93.3 % (95-100); ABG PCO2 50.6 MM HG (35-48); ABG PH 7.425 (7.35-7.45); ABG PO2 68.4 MM HG (80-95); ABG TCO2 29.9 MMOL/L (23-27); Allen Test Positive
[2019-04-19] MEDS ORDERED: ALBUTEROL/IPRATROPIUM 3 ML NEB RESP TX STA (05:13)
[2019-04-19 06:32] LABS: Basophils % 0.3 % (0.0-0.8); Eosinophils # 0.2 10*3/uL (0.0-0.87); Eosinophils % 1.2 % (0.00-10.9); Hematocrit 30.4 VOL% (35.7-47.0); Hemoglobin 9.5 GM/DL (12.0-16.0); Immature Granulocytes % 0.9 %; Immature Granulocytes Absolute 0.12 #; Lymphocytes % 7.4 % (21.3-54.2); Mean Corpuscular HGB Conc 31.3 GM/DL (32-36); Mean Corpuscular Volume 87.9 FL (87-102); Mean Platelet Volume 9.2 FL (9.6-12.0); Monocytes % 3.6 % (1.7-12.7); Neutrophils % 86.6 % (38.7-73.9); Platelet Count 270 T/CUMM (130-400); Red Blood Count 3.46 MC/CUMM (3.8-5.5); Red Cell Distribution Width 15.1 % (9.3-17.3); White Blood Count 13.7 T/CUMM (4-12)
[2019-04-19 06:58] LABS: Bilirubin,Total 0.4 MG/DL (0.2-1.0); Total Protein 6.5 G/DL (6.4-8.3)
[2019-04-19] MEDS ORDERED: ALBUTEROL 2.5 MG/3 ML NEB RESP TX PRN (12:26)
[2019-04-19] MEDS ORDERED: DOCUSATE SODIUM 100 MG CAPSULE PO PRN (12:27)
[2019-04-19] MEDS ORDERED: POTASSIUM CHLORIDE 20 MEQ TABLET PO SCH (12:30)
[2019-04-19] MEDS ORDERED: GLUCAGON 1 MG VIAL IM PRN (12:37)
[2019-04-19] MEDS ORDERED: DEXTROSE 50% 25 GM/50 ML VIAL IV PRN ×2 (12:37)
[2019-04-19] MEDS: DICYCLOMINE 10 MG CAPSULE PO SCH ×3 (13:01→21:59)
[2019-04-19] MEDS: ALBUTEROL/IPRATROPIUM 3 ML NEB RESP TX SCH ×2 (13:01→19:27)
[2019-04-19 13:09] LABS: ABG Base Excess 7.3 MMOL/L (-2.5-2.5); ABG HCO3 31.1 MMOL/L (20-26); ABG Oxygen Saturation 95.6 % (95-100); ABG PCO2 45.1 MM HG (35-48); ABG PO2 74.6 MM HG (80-95)
[2019-04-19] MEDS: methylPREDNISolone SOD SUC 40 MG/1 ML VIAL IV SCH ×2 (13:19→22:00)
[2019-04-19] MEDS: cefTRIAXone 1,000 MG in SYRINGE 1 EACH IV SCH (13:20)
[2019-04-19] MEDS: AZITHROMYCIN 250 MG TABLET PO SCH (13:20)
[2019-04-19] MEDS: FUROSEMIDE 80 MG TABLET PO SCH (13:21)
[2019-04-19] MEDS: HEPARIN 5,000 UNIT/1 ML VIAL SUBCUT SCH ×2 (13:21→22:00)
[2019-04-19] MEDS: GABAPENTIN 400 MG CAPSULE PO SCH ×2 (14:09→20:11)
[2019-04-19] MEDS ORDERED: ACETAMINOPHEN 325 MG TABLET PO PRN (15:36)
[2019-04-19] MEDS: INSULIN REGULAR 100 UNIT/ML SUBCUT SCH ×2 (16:11→21:59)
[2019-04-19] MEDS ORDERED: oxyCODONE/ACETAMINOPHEN 5-325 MG TABLET PO ONE (19:15)
[2019-04-19] MEDS: BUDESONIDE 0.5 MG/2 ML NEB RESP TX SCH (19:27)
[2019-04-19] MEDS: PANTOPRAZOLE 40 MG TABLET PO SCH (21:58)
[2019-04-19] MEDS: CARVEDILOL 25 MG TABLET PO SCH (21:58)
[2019-04-20] MEDS: ALBUTEROL/IPRATROPIUM 3 ML NEB RESP TX SCH ×4 (00:17→19:36)
[2019-04-20 03:51] LABS: ABG Base Excess 8.5 MMOL/L (-2.5-2.5); ABG HCO3 32.2 MMOL/L (20-26); ABG Oxygen Saturation 95.3 % (95-100); ABG PCO2 51.2 MM HG (35-48); ABG PH 7.433 (7.35-7.45); Allen Test Positive
[2019-04-20] MEDS: HEPARIN 5,000 UNIT/1 ML VIAL SUBCUT SCH ×3 (04:54→21:57)
[2019-04-20] MEDS: methylPREDNISolone SOD SUC 40 MG/1 ML VIAL IV SCH ×3 (04:54→21:57)
[2019-04-20 05:46] LABS: Basophils % 0.2 % (0.0-0.8); Hematocrit 31.2 VOL% (35.7-47.0); Hemoglobin 9.9 GM/DL (12.0-16.0); Immature Granulocytes % 0.9 %; Immature Granulocytes Absolute 0.09 #; Lymphocytes # 0.5 10*3/uL (1.4-4.0); Lymphocytes % 4.7 % (21.3-54.2); Mean Corpuscular HGB Conc 31.7 GM/DL (32-36); Mean Corpuscular Volume 87.4 FL (87-102); Mean Platelet Volume 9.5 FL (9.6-12.0); Neutrophils % 93.2 % (38.7-73.9); Platelet Count 261 T/CUMM (130-400); Red Blood Count 3.57 MC/CUMM (3.8-5.5); Red Cell Distribution Width 14.5 % (9.3-17.3); White Blood Count 9.6 T/CUMM (4-12)
[2019-04-20 06:06] LABS: Free T4 (Free Thyroxine) 1.55 NG/DL (0.76-1.46); Risk Ratio 4.52; VLDL CHOLESTEROL 41.2 MG/DL
[2019-04-20 06:07] LABS: Albumin 3.1 G/DL (3.4-5.0); Bilirubin,Total 0.6 MG/DL (0.2-1.0); Calcium 9.3 MG/DL (8.5-10.1); Total Protein 6.9 G/DL (6.4-8.3)
[2019-04-20 06:08] LABS: Band Neutrophils 2 % (0-10); Lymphocytes 6 % (20-55); Segmented Neutrophils 92 % (50-85); Total Cells Counted 100
[2019-04-20 06:09] LABS: Anisocytosis 1+; Hypochromasia 1+; Platelet Estimate Adequate
[2019-04-20] MEDS: BUDESONIDE 0.5 MG/2 ML NEB RESP TX SCH ×2 (07:05→19:36)
[2019-04-20] MEDS ORDERED: LEVOTHYROXINE 100 MCG TABLET PO SCH (09:00)
[2019-04-20] MEDS: INSULIN REGULAR 100 UNIT/ML SUBCUT SCH ×4 (09:14→21:58)
[2019-04-20] MEDS: FOLIC ACID 0.4 MG TABLET PO SCH (09:15)
[2019-04-20] MEDS: AZITHROMYCIN 250 MG TABLET PO SCH (09:15)
[2019-04-20] MEDS: MELOXICAM 7.5 MG TABLET PO SCH (09:15)
[2019-04-20] MEDS: FUROSEMIDE 80 MG TABLET PO SCH (09:15)
[2019-04-20] MEDS: DICYCLOMINE 10 MG CAPSULE PO SCH ×4 (09:15→21:56)
[2019-04-20] MEDS: OMEGA 3 ACID ETHYL ESTERS 1 GM CAPSULE PO SCH ×2 (09:15→21:57)
[2019-04-20] MEDS: ATORVASTATIN 40 MG TABLET PO SCH (09:15)
[2019-04-20] MEDS: PANTOPRAZOLE 40 MG TABLET PO SCH ×2 (09:16→21:57)
[2019-04-20] MEDS: CARVEDILOL 25 MG TABLET PO SCH ×2 (09:16→21:56)
[2019-04-20] MEDS: GABAPENTIN 400 MG CAPSULE PO SCH ×3 (09:16→21:57)
[2019-04-20] MEDS: POTASSIUM GLUCONATE 500 MG TABLET PO SCH (09:16)
[2019-04-20] MEDS: SILVER SULFADIAZINE 1% CREAM 25 GM TUBE TOP SCH ×2 (09:25→13:31)
[2019-04-20] MEDS ORDERED: oxyCODONE/ACETAMINOPHEN 5-325 MG TABLET PO PRN (09:42)
[2019-04-20] MEDS ORDERED: TUBERCULIN SKIN TEST 0.1 ML SYRINGE INTRADERM ONE (11:13)
[2019-04-20] MEDS: oxyCODONE/ACETAMINOPHEN 5-325 MG TABLET PO PRN ×2 (11:33→21:56)
[2019-04-20] MEDS: cefTRIAXone 1,000 MG in SYRINGE 1 EACH IV SCH (11:35)
[2019-04-20] MEDS ORDERED: amLODIPine 5 MG TABLET PO SCH (12:00)
[2019-04-20 14:40] LABS: Apearance,Urine CLEAR (Clear); Bacteria,Urine Occasional /HPF (Few); Bilirubin,Urine Negative (Negative); Blood, Urine Negative (Negative); Glucose,Urine (UA) >=500 mg/dL (Negative); Hyaline Casts,Urine 20 /LPF (0-3); Ketones,Urine 5 mg/dL (Negative); Mucus,Urine Occasional /LPF (Occasional); Nitrite,Urine Negative (Negative); Protein,Urine Negative; RBC,Urine 2 /HPF (0-4); Squamous Epithelial Cell,Urine Occasional /HPF (0-10); Urine Color Yellow (Yellow); Urine Urobilinogen < 2.0 EU/DL (<2.0); WBC,Urine 2 /HPF (0-6)
[2019-04-21] MEDS: ALBUTEROL/IPRATROPIUM 3 ML NEB RESP TX SCH ×3 (00:57→07:02)
[2019-04-21] MEDS: methylPREDNISolone SOD SUC 40 MG/1 ML VIAL IV SCH (05:30)
[2019-04-21] MEDS: HEPARIN 5,000 UNIT/1 ML VIAL SUBCUT SCH (05:31)
[2019-04-21] MEDS ORDERED: LEVOTHYROXINE 100 MCG TABLET PO SCH (06:30)
[2019-04-21] MEDS: BUDESONIDE 0.5 MG/2 ML NEB RESP TX SCH (07:02)
[2019-04-21] MEDS: MELOXICAM 7.5 MG TABLET PO SCH (08:50)
[2019-04-21] MEDS: POTASSIUM GLUCONATE 500 MG TABLET PO SCH (08:50)
[2019-04-21] MEDS: FOLIC ACID 0.4 MG TABLET PO SCH (08:50)
[2019-04-21] MEDS: ATORVASTATIN 40 MG TABLET PO SCH (08:50)
[2019-04-21] MEDS: AZITHROMYCIN 250 MG TABLET PO SCH (08:50)
[2019-04-21] MEDS: FUROSEMIDE 80 MG TABLET PO SCH (08:51)
[2019-04-21] MEDS: INSULIN REGULAR 100 UNIT/ML SUBCUT SCH (08:51)
[2019-04-21] MEDS: DICYCLOMINE 10 MG CAPSULE PO SCH (08:51)
[2019-04-21] MEDS: CARVEDILOL 25 MG TABLET PO SCH (08:51)
[2019-04-21] MEDS: OMEGA 3 ACID ETHYL ESTERS 1 GM CAPSULE PO SCH ×2 (08:51→08:57)
[2019-04-21] MEDS: PANTOPRAZOLE 40 MG TABLET PO SCH (08:51)
[2019-04-21] MEDS: GABAPENTIN 400 MG CAPSULE PO SCH (08:51)
[2019-04-21] MEDS: SILVER SULFADIAZINE 1% CREAM 25 GM TUBE TOP SCH (08:55)
[2019-04-21] MEDS: oxyCODONE/ACETAMINOPHEN 5-325 MG TABLET PO PRN (08:58)
[2019-04-21] MEDS ORDERED: BUDESONIDE/FORMOTEROL 160-4.5 INHALER 6 GM INH SCH (09:00)
[2019-04-21 11:42] VITALS: BP 124/65
== END 2019-04-21 11:15 | disposition swing bed (61) ==
LOC: EDUNIT# → EDBD → N.ED 03:35 → N.EDINP 03:35 → N.5E 10:48
PROVIDERS: ADMIT Internal Medicine; ATTEND Internal Medicine

== ENCOUNTER 2019-07-07 00:09 | Inpatient (IN) ==
[2019-07-07] MEDS ORDERED: ceFAZolin 2,000 MG in SODIUM CHLORIDE 0.9% 100 ML IV STA (00:20)
[2019-07-07] MEDS ORDERED: DIPH/TET/ACEL PERT BOOSTER VACCINE 0.5 ML VIAL IM ONE (00:20)
[2019-07-07] MEDS ORDERED: fentaNYL 100 MCG/2 ML VIAL IV STA (00:22)
[2019-07-07] MEDS ORDERED: NALOXONE 0.4 MG/ML VIAL ONE (00:32)
[2019-07-07] MEDS ORDERED: NALOXONE 0.4 MG/ML VIAL IV ONE (00:35)
[2019-07-07] MEDS ORDERED: ROCURONIUM 100 MG/10 ML VIAL IV ONE ×3 (00:36→10:30)
[2019-07-07] MEDS ORDERED: ETOMIDATE 20 MG/10 ML VIAL IV ONE ×2 (00:37→00:43)
[2019-07-07] MEDS ORDERED: PROPOFOL 1,000 MG/100 ML BOTTLE IV ONE (00:39)
[2019-07-07 00:45] LABS: INR 0.9; Partial Thromboplastin Time 25.2 SECS (20.8-36.0)
[2019-07-07] MEDS ORDERED: VECURONIUM 10 MG VIAL IV ONE (00:45)
[2019-07-07 00:57] LABS: Alanine Aminotransferase 20 U/L (13-56); Albumin 3.3 G/DL (3.4-5.0); Alkaline Phosphatase 91 U/L (45-117); Aspartate Amino Transferase 13 U/L (0-37); Basophils % 0.2 % (0.0-0.8); Bilirubin,Total < 0.39 MG/DL (0.2-1.0); Blood Urea Nitrogen 43 MG/DL (7-18); Calcium 8.7 MG/DL (8.5-10.1); Eosinophils # 0.2 10*3/uL (0.0-0.87); Eosinophils % 2.1 % (0.00-10.9); Estimated Glom Filtration Rate 40 ML/MIN; Glucose 154 MG/DL (74-106); Hematocrit 27.1 VOL% (35.7-47.0); Hemoglobin 8.6 GM/DL (12.0-16.0); Immature Granulocytes % 0.9 %; Lymphocytes # 1.7 10*3/uL (1.4-4.0); Lymphocytes % 14.9 % (21.3-54.2); Mean Corpuscular HGB Conc 31.7 GM/DL (32-36); Mean Corpuscular Volume 87.7 FL (87-102); Mean Platelet Volume 9.9 FL (9.6-12.0); Monocytes % 7.8 % (1.7-12.7); Neutrophils % 74.1 % (38.7-73.9); Osmolality,Calculated 277.5 MOS/KG (273-304); Platelet Count 331 T/CUMM (130-400); Red Blood Count 3.09 MC/CUMM (3.8-5.5); Red Cell Distribution Width 14.7 % (9.3-17.3); Total Protein 6.4 G/DL (6.4-8.3); White Blood Count 11.6 T/CUMM (4-12)
[2019-07-07 01:54] LABS: ABG Base Excess 0.5 MMOL/L (-2.5-2.5); ABG HCO3 24.9 MMOL/L (20-26); ABG Oxygen Saturation 95.9 % (95-100); ABG PCO2 46.6 MM HG (35-48); ABG PH 7.359 (7.35-7.45); ABG PO2 77.1 MM HG (80-95); ABG TCO2 24.5 MMOL/L (23-27)
[2019-07-07] MEDS ORDERED: DEXTROSE 50% 25 GM/50 ML VIAL IV PRN (02:03)
[2019-07-07] MEDS ORDERED: ALBUTEROL 2.5 MG/3 ML NEB RESP TX PRN (02:03)
[2019-07-07] MEDS ORDERED: GLUCAGON 1 MG VIAL IM PRN (02:03)
[2019-07-07] MEDS ORDERED: ONDANSETRON 4 MG/2 ML VIAL IV PRN (02:03)
[2019-07-07] MEDS ORDERED: MIDAZOLAM 2 MG/2 ML VIAL IV STA (02:07)
[2019-07-07] MEDS ORDERED: MIDAZOLAM 2 MG/2 ML VIAL ONE ×2 (02:08→10:30)
[2019-07-07] MEDS ORDERED: fentaNYL 100 MCG/2 ML VIAL IV ONE (02:30)
[2019-07-07] MEDS ORDERED: NOREPINEPHRINE 8 MG in SODIUM CHLORIDE 0.9% 242 ML IV PRN (03:05)
[2019-07-07] MEDS: PROPOFOL 1,000 MG/100 ML BOTTLE IV SCH ×2 (03:57→22:08)
[2019-07-07] MEDS ORDERED: SODIUM CHLORIDE 0.9% 500 ML IV STA (05:06)
[2019-07-07] MEDS: PANTOPRAZOLE 40 MG VIAL IV SCH (06:11)
[2019-07-07] MEDS ORDERED: SODIUM CHLORIDE 0.9% 1,000 ML IV PRN (06:57)
[2019-07-07] MEDS ORDERED: GENTAMICIN INJ 100 MG in PREMIX 1 EACH IV ONE (07:00)
[2019-07-07] MEDS ORDERED: ceFAZolin 1,000 MG VIAL ONE (07:24)
[2019-07-07] MEDS ORDERED: GENTAMICIN 80 MG/2 ML VIAL ONE (08:01)
[2019-07-07 08:18] LABS: ABG Base Excess 3.7 MMOL/L (-2.5-2.5); ABG HCO3 27.8 MMOL/L (20-26); ABG Oxygen Saturation 98.5 % (95-100); ABG PCO2 41.6 MM HG (35-48); ABG PH 7.439 (7.35-7.45); ABG PO2 99.4 MM HG (80-95); ABG TCO2 26.6 MMOL/L (23-27); Glucose Heart Surgery 177 MG/DL (74-106); Hematocrit Heart Surgery 21.8 PERCENT (37-47); Ionized Calcium Arterial 1.07 MMOL/L (1.21-1.46); PCO2 Patient Temp Arterial 41.6 MMHG; PH Patient Temp Arterial 7.439; PO2 Patient Temp Arterial 99.4 MM HG; Patient Temperature 37 CELCIUS; Potassium Heart/CVR 3.6 MMOL/L (3.5-5.1); Sodium Heart/CVR 132 MMOL/L (135-145)
[2019-07-07 09:47] LABS: ABG Base Excess 1.6 MMOL/L (-2.5-2.5); ABG HCO3 25.9 MMOL/L (20-26); ABG Oxygen Saturation 98.2 % (95-100); ABG PCO2 40.4 MM HG (35-48); ABG PO2 92.5 MM HG (80-95); Glucose Heart Surgery 183 MG/DL (74-106); Hematocrit Heart Surgery 28.4 PERCENT (37-47); Hemoglobin Heart Surgery 9.1 G/DL (12.0-16.0); Ionized Calcium Arterial 1.34 MMOL/L (1.21-1.46); PCO2 Patient Temp Arterial 40.4 MMHG; PO2 Patient Temp Arterial 92.5 MM HG; Patient Temperature 37 CELCIUS; Potassium Heart/CVR 3.9 MMOL/L (3.5-5.1); Sodium Heart/CVR 132 MMOL/L (135-145)
[2019-07-07] MEDS ORDERED: HEPARIN/NACL 0.9% 2 UNITS/ML 500 ML IV ONE (10:29)
[2019-07-07] MEDS ORDERED: CALCIUM CHLORIDE 1,000 MG/10 ML VIAL IV ONE (10:29)
[2019-07-07] MEDS ORDERED: SEVOFLURANE 1 UNIT/15 MINUTE INH ONE (10:29)
[2019-07-07] MEDS ORDERED: fentaNYL 100 MCG/2 ML VIAL ONE (10:30)
[2019-07-07] MEDS ORDERED: SODIUM CHLORIDE 0.9% 1,000 ML IV ONE (10:30)
[2019-07-07 10:53] LABS: ABG Base Excess 0.4 MMOL/L (-2.5-2.5); ABG HCO3 24.8 MMOL/L (20-26); ABG Oxygen Saturation 99.4 % (95-100); ABG TCO2 23.1 MMOL/L (23-27)
[2019-07-07] MEDS: INSULIN REGULAR 100 UNIT/ML SUBCUT SCH ×4 (11:01→23:42)
[2019-07-07 13:04] LABS: Albumin 2.7 G/DL (3.4-5.0); Bilirubin,Total 1.2 MG/DL (0.2-1.0); Calcium 8.9 MG/DL (8.5-10.1); Total Protein 5.4 G/DL (6.4-8.3)
[2019-07-07 13:19] LABS: Basophils % 0.3 % (0.0-0.8); Eosinophils # 0.2 10*3/uL (0.0-0.87); Eosinophils % 1.4 % (0.00-10.9); Hematocrit 29.7 VOL% (35.7-47.0); Hemoglobin 9.7 GM/DL (12.0-16.0); Immature Granulocytes % 0.7 %; Immature Granulocytes Absolute 0.08 #; Lymphocytes # 1.1 10*3/uL (1.4-4.0); Lymphocytes % 9.7 % (21.3-54.2); Mean Corpuscular HGB Conc 32.7 GM/DL (32-36); Mean Corpuscular Volume 87.6 FL (87-102); Mean Platelet Volume 10.2 FL (9.6-12.0); Monocytes % 6.4 % (1.7-12.7); Neutrophils % 81.5 % (38.7-73.9); Platelet Count 246 T/CUMM (130-400); Red Blood Count 3.39 MC/CUMM (3.8-5.5); Red Cell Distribution Width 14.5 % (9.3-17.3); White Blood Count 11.8 T/CUMM (4-12)
[2019-07-07 13:55] LABS: Apearance,Urine CLEAR (Clear); Bacteria,Urine Occasional /HPF (Few); Bilirubin,Urine Negative (Negative); Blood, Urine Small mg/dL (Negative); Glucose,Urine (UA) Negative (Negative); Ketones,Urine Negative (Negative); Mucus,Urine Occasional /LPF (Occasional); Nitrite,Urine Negative (Negative); Protein,Urine Negative; RBC,Urine <1 /HPF (0-4); Urine Color Straw (Yellow); Urine Specific Gravity 1.013 (1.001-1.035); Urine Urobilinogen < 2.0 EU/DL (0.2-1.0); WBC,Urine 5 /HPF (0-6)
[2019-07-07] MEDS: MORPHINE 4 MG/1 ML VIAL IV PRN ×2 (18:22→22:37)
[2019-07-08] MEDS: PANTOPRAZOLE 40 MG VIAL IV SCH (02:00)
[2019-07-08] MEDS: MORPHINE 4 MG/1 ML VIAL IV PRN (04:10)
[2019-07-08 04:34] LABS: ABG HCO3 27.1 MMOL/L (20-26); ABG Oxygen Saturation 99.6 % (95-100); ABG PCO2 36.4 MM HG (35-48); ABG PH 7.472 (7.35-7.45); ABG TCO2 24.4 MMOL/L (23-27)
[2019-07-08] MEDS: fentaNYL INJ 1,250 MCG in SODIUM CHLORIDE 0.9% 225 ML IV PRN ×2 (05:18→18:03)
[2019-07-08] MEDS: INSULIN REGULAR 100 UNIT/ML SUBCUT SCH ×3 (05:31→18:03)
[2019-07-08] MEDS: PROPOFOL 1,000 MG/100 ML BOTTLE IV SCH ×4 (06:21→20:32)
[2019-07-08 08:50] LABS: Basophils % 0.2 % (0.0-0.8); Eosinophils # 0.1 10*3/uL (0.0-0.87); Hematocrit 26.8 VOL% (35.7-47.0); Hemoglobin 8.7 GM/DL (12.0-16.0); Immature Granulocytes % 0.7 %; Immature Granulocytes Absolute 0.07 #; Lymphocytes # 1.3 10*3/uL (1.4-4.0); Lymphocytes % 12.2 % (21.3-54.2); Mean Corpuscular HGB Conc 32.5 GM/DL (32-36); Mean Corpuscular Volume 87.9 FL (87-102); Mean Platelet Volume 9.9 FL (9.6-12.0); Monocytes % 9.3 % (1.7-12.7); Neutrophils % 76.6 % (38.7-73.9); Platelet Count 215 T/CUMM (130-400); Red Blood Count 3.05 MC/CUMM (3.8-5.5); Red Cell Distribution Width 14.8 % (9.3-17.3); White Blood Count 10.7 T/CUMM (4-12)
[2019-07-08 09:10] LABS: Calcium 8.4 MG/DL (8.5-10.1); Osmolality,Calculated 278.7 MOS/KG (273-304)
[2019-07-08] MEDS ORDERED: MAGNESIUM SULF RIDER 4 GM in PREMIX 1 EACH IV ONE (10:00)
[2019-07-08] MEDS ORDERED: POTASSIUM CHLORIDE 20 MEQ/15 ML UDCUP PER TUBE ONE ×2 (10:00→16:00)
[2019-07-08 17:02] LABS: Hematocrit 27.7 VOL% (35.7-47.0)
[2019-07-09] MEDS: INSULIN REGULAR 100 UNIT/ML SUBCUT SCH ×4 (00:37→18:07)
[2019-07-09] MEDS: PROPOFOL 1,000 MG/100 ML BOTTLE IV SCH ×2 (01:36→22:00)
[2019-07-09] MEDS: PANTOPRAZOLE 40 MG VIAL IV SCH (03:06)
[2019-07-09 03:49] LABS: ABG Base Excess 3.8 MMOL/L (-2.5-2.5); ABG HCO3 27.9 MMOL/L (20-26); ABG Oxygen Saturation 99.1 % (95-100); ABG PCO2 39.6 MM HG (35-48); ABG PH 7.456 (7.35-7.45); ABG TCO2 25.4 MMOL/L (23-27)
[2019-07-09 03:53] LABS: Basophils % 0.3 % (0.0-0.8); Eosinophils # 0.2 10*3/uL (0.0-0.87); Eosinophils % 1.9 % (0.00-10.9); Hematocrit 27.9 VOL% (35.7-47.0); Immature Granulocytes % 0.9 %; Lymphocytes # 1.3 10*3/uL (1.4-4.0); Lymphocytes % 11.1 % (21.3-54.2); Mean Corpuscular HGB Conc 32.3 GM/DL (32-36); Mean Corpuscular Volume 89.1 FL (87-102); Mean Platelet Volume 9.9 FL (9.6-12.0); Neutrophils % 75.8 % (38.7-73.9); Platelet Count 229 T/CUMM (130-400); Red Blood Count 3.13 MC/CUMM (3.8-5.5); Red Cell Distribution Width 14.9 % (9.3-17.3); White Blood Count 11.5 T/CUMM (4-12)
[2019-07-09 04:09] LABS: Calcium 8.5 MG/DL (8.5-10.1); Osmolality,Calculated 278.5 MOS/KG (273-304); Prealbumin 10.3 MG/DL (20-40)
[2019-07-09] MEDS: fentaNYL INJ 1,250 MCG in SODIUM CHLORIDE 0.9% 225 ML IV PRN (06:20)
[2019-07-09] MEDS ORDERED: PHENYLEPHRINE DRIP 40 MG/250 ML PREMIX IV ONE (07:24)
[2019-07-09] MEDS ORDERED: DICYCLOMINE 10 MG CAPSULE PO PRN (09:02)
[2019-07-09] MEDS ORDERED: ACETAMINOPHEN 325 MG TABLET PO PRN (09:04)
[2019-07-09] MEDS ORDERED: predniSONE 10 MG TABLET PO SCH (09:30)
[2019-07-09] MEDS ORDERED: SEVOFLURANE 1 UNIT/15 MINUTE INH ONE (09:50)
[2019-07-09] MEDS ORDERED: ROCURONIUM 100 MG/10 ML VIAL IV ONE (09:51)
[2019-07-09] MEDS ORDERED: LACTATED RINGERS 1,000 ML IV ONE (09:51)
[2019-07-09] MEDS ORDERED: MIDAZOLAM 10 MG/2 ML VIAL ONE (09:51)
[2019-07-09] MEDS ORDERED: fentaNYL 100 MCG/2 ML VIAL ONE (09:51)
[2019-07-09] MEDS: carvediloL 25 MG TABLET PO SCH ×2 (09:53→21:27)
[2019-07-09] MEDS: LEVOTHYROXINE 100 MCG TABLET PO SCH (09:54)
[2019-07-09] MEDS ORDERED: FUROSEMIDE 40 MG/4 ML VIAL IV ONE (10:12)
[2019-07-09] MEDS: amLODIPine 5 MG TABLET PO SCH (10:46)
[2019-07-09] MEDS ORDERED: amLODIPine 5 MG TABLET PO SCH (12:00)
[2019-07-09] MEDS: ENOXAPARIN 40 MG/0.4 ML SYRINGE SUBCUT SCH (18:07)
[2019-07-09] MEDS: FUROSEMIDE 40 MG TABLET PO SCH (21:27)
[2019-07-10] MEDS: MORPHINE 4 MG/1 ML VIAL IV PRN ×2 (01:23→21:04)
[2019-07-10] MEDS: INSULIN REGULAR 100 UNIT/ML SUBCUT SCH ×4 (01:23→17:00)
[2019-07-10] MEDS: PANTOPRAZOLE 40 MG VIAL IV SCH (01:30)
[2019-07-10 03:18] LABS: Basophils % 0.1 % (0.0-0.8); Eosinophils # 0.1 10*3/uL (0.0-0.87); Hematocrit 23.1 VOL% (35.7-47.0); Hemoglobin 7.5 GM/DL (12.0-16.0); Immature Granulocytes % 0.7 %; Immature Granulocytes Absolute 0.08 #; Lymphocytes # 1.1 10*3/uL (1.4-4.0); Lymphocytes % 9.4 % (21.3-54.2); Mean Corpuscular HGB Conc 32.5 GM/DL (32-36); Mean Corpuscular Volume 88.2 FL (87-102); Monocytes % 8.3 % (1.7-12.7); Neutrophils % 80.5 % (38.7-73.9); Platelet Count 207 T/CUMM (130-400); Red Blood Count 2.62 MC/CUMM (3.8-5.5); Red Cell Distribution Width 14.4 % (9.3-17.3); White Blood Count 11.3 T/CUMM (4-12)
[2019-07-10] MEDS: PROPOFOL 1,000 MG/100 ML BOTTLE IV SCH (03:45)
[2019-07-10 03:56] LABS: Calcium 8.5 MG/DL (8.5-10.1); Osmolality,Calculated 282.7 MOS/KG (273-304); Thyroid Stimulating Hormone 0.264 uIU/ml (0.358-3.74)
[2019-07-10 04:48] LABS: ABG Base Excess 7.9 MMOL/L (-2.5-2.5); ABG HCO3 31.7 MMOL/L (20-26); ABG Oxygen Saturation 99.3 % (95-100); ABG PCO2 41.6 MM HG (35-48); ABG PH 7.492 (7.35-7.45); ABG TCO2 29.8 MMOL/L (23-27)
[2019-07-10 05:46] LABS: Basophils % 0.1 % (0.0-0.8); Eosinophils # 0.2 10*3/uL (0.0-0.87); Eosinophils % 1.4 % (0.00-10.9); Hematocrit 22.8 VOL% (35.7-47.0); Hemoglobin 7.5 GM/DL (12.0-16.0); Immature Granulocytes % 0.7 %; Immature Granulocytes Absolute 0.07 #; Lymphocytes # 1.1 10*3/uL (1.4-4.0); Lymphocytes % 10.7 % (21.3-54.2); Mean Corpuscular HGB Conc 32.9 GM/DL (32-36); Mean Corpuscular Volume 87.4 FL (87-102); Mean Platelet Volume 10.7 FL (9.6-12.0); Monocytes % 9.4 % (1.7-12.7); Neutrophils % 77.7 % (38.7-73.9); Platelet Count 221 T/CUMM (130-400); Red Blood Count 2.61 MC/CUMM (3.8-5.5); Red Cell Distribution Width 14.4 % (9.3-17.3); White Blood Count 10.4 T/CUMM (4-12)
[2019-07-10 05:55] LABS: Calcium 8.2 MG/DL (8.5-10.1); Osmolality,Calculated 286.4 MOS/KG (273-304)
[2019-07-10] MEDS: carvediloL 25 MG TABLET PO SCH ×2 (08:16→21:04)
[2019-07-10] MEDS: amLODIPine 5 MG TABLET PO SCH (08:16)
[2019-07-10] MEDS: FUROSEMIDE 40 MG TABLET PO SCH ×2 (08:16→15:25)
[2019-07-10] MEDS: ATORVASTATIN 40 MG TABLET PO SCH (08:16)
[2019-07-10] MEDS: LEVOTHYROXINE 100 MCG TABLET PO SCH (08:16)
[2019-07-10] MEDS ORDERED: DEXTROSE 50% 25 GM/50 ML VIAL IV PRN (10:18)
[2019-07-10] MEDS ORDERED: MAGNESIUM SULF RIDER 2 GM in PREMIX 1 EACH IV PRN (10:51)
[2019-07-10] MEDS ORDERED: MAGNESIUM SULF RIDER 4 GM in PREMIX 1 EACH IV PRN (10:51)
[2019-07-10] MEDS: POTASSIUM CHLORIDE RIDER 20 MEQ in PREMIX 1 EACH IV PRN ×2 (11:08→15:08)
[2019-07-10] MEDS ORDERED: PHENOL 1.4% THROAT SPRAY 177 ML BOTTLE PO PRN (11:24)
[2019-07-10] MEDS ORDERED: FUROSEMIDE 40 MG/4 ML VIAL IV ONE (11:38)
[2019-07-10] MEDS: methylPREDNISolone SOD SUC 125 MG/2 ML VIAL IV SCH (11:54)
[2019-07-10 13:45] LABS: Hematocrit 24.8 VOL% (35.7-47.0)
[2019-07-10] MEDS: ENOXAPARIN 40 MG/0.4 ML SYRINGE SUBCUT SCH (17:00)
[2019-07-11] MEDS: INSULIN REGULAR 100 UNIT/ML SUBCUT SCH ×5 (00:29→23:49)
[2019-07-11] MEDS: methylPREDNISolone SOD SUC 125 MG/2 ML VIAL IV SCH ×3 (00:30→23:50)
[2019-07-11] MEDS: PANTOPRAZOLE 40 MG VIAL IV SCH (03:43)
[2019-07-11 04:49] LABS: Hematocrit 24.5 VOL% (35.7-47.0); Hemoglobin 7.9 GM/DL (12.0-16.0); Immature Granulocytes % 1.2 %; Immature Granulocytes Absolute 0.07 #; Lymphocytes # 0.4 10*3/uL (1.4-4.0); Lymphocytes % 7.4 % (21.3-54.2); Mean Corpuscular HGB Conc 32.2 GM/DL (32-36); Mean Corpuscular Volume 88.1 FL (87-102); Mean Platelet Volume 9.9 FL (9.6-12.0); Monocytes % 3.2 % (1.7-12.7); Neutrophils % 88.2 % (38.7-73.9); Platelet Count 243 T/CUMM (130-400); Red Blood Count 2.78 MC/CUMM (3.8-5.5); Red Cell Distribution Width 13.5 % (9.3-17.3); White Blood Count 5.9 T/CUMM (4-12)
[2019-07-11 05:02] LABS: Osmolality,Calculated 293.4 MOS/KG (273-304)
[2019-07-11] MEDS: POTASSIUM CHLORIDE RIDER 20 MEQ in PREMIX 1 EACH IV PRN ×3 (07:05→15:50)
[2019-07-11] MEDS: ATORVASTATIN 40 MG TABLET PO SCH (08:02)
[2019-07-11] MEDS: carvediloL 25 MG TABLET PO SCH ×2 (08:03→20:26)
[2019-07-11] MEDS: LEVOTHYROXINE 100 MCG TABLET PO SCH (08:03)
[2019-07-11] MEDS: amLODIPine 5 MG TABLET PO SCH (08:03)
[2019-07-11] MEDS: FUROSEMIDE 40 MG TABLET PO SCH ×2 (08:03→15:18)
[2019-07-11] MEDS: oxyCODONE/ACETAMINOPHEN 5-325 MG TABLET PO PRN (13:00)
[2019-07-11] MEDS: MORPHINE 4 MG/1 ML VIAL IV PRN ×3 (17:50→23:51)
[2019-07-11] MEDS: ENOXAPARIN 40 MG/0.4 ML SYRINGE SUBCUT SCH (17:54)
[2019-07-11] MEDS: POTASSIUM CHLORIDE RIDER 10 MEQ in PREMIX 1 EACH IV PRN (17:54)
[2019-07-12] MEDS: PANTOPRAZOLE 40 MG VIAL IV SCH (03:15)
[2019-07-12] MEDS: MORPHINE 4 MG/1 ML VIAL IV PRN ×2 (03:40→12:47)
[2019-07-12 05:07] LABS: Hematocrit 22.8 VOL% (35.7-47.0); Hemoglobin 7.4 GM/DL (12.0-16.0); Immature Granulocytes % 1.9 %; Immature Granulocytes Absolute 0.13 #; Lymphocytes # 0.4 10*3/uL (1.4-4.0); Lymphocytes % 6.3 % (21.3-54.2); Mean Corpuscular HGB Conc 32.5 GM/DL (32-36); Mean Corpuscular Volume 87.4 FL (87-102); Mean Platelet Volume 10.1 FL (9.6-12.0); Monocytes % 4.3 % (1.7-12.7); Neutrophils % 87.5 % (38.7-73.9); Platelet Count 275 T/CUMM (130-400); Red Blood Count 2.61 MC/CUMM (3.8-5.5); Red Cell Distribution Width 13.2 % (9.3-17.3)
[2019-07-12 05:25] LABS: Calcium 8.7 MG/DL (8.5-10.1); Osmolality,Calculated 297.3 MOS/KG (273-304); Prealbumin 13.6 MG/DL (20-40)
[2019-07-12] MEDS: INSULIN REGULAR 100 UNIT/ML SUBCUT SCH ×3 (06:00→17:48)
[2019-07-12] MEDS ORDERED: FUROSEMIDE 20 MG TABLET ONE (08:57)
[2019-07-12] MEDS: oxyCODONE/ACETAMINOPHEN 5-325 MG TABLET PO PRN ×2 (09:54→21:28)
[2019-07-12] MEDS: FUROSEMIDE 40 MG TABLET PO SCH ×2 (09:56→16:46)
[2019-07-12] MEDS: LEVOTHYROXINE 100 MCG TABLET PO SCH (09:58)
[2019-07-12] MEDS: ATORVASTATIN 40 MG TABLET PO SCH (09:58)
[2019-07-12] MEDS: amLODIPine 5 MG TABLET PO SCH (09:58)
[2019-07-12] MEDS: carvediloL 25 MG TABLET PO SCH ×2 (09:58→21:27)
[2019-07-12] MEDS ORDERED: SODIUM CHLORIDE 0.9% 1,000 ML IV PRN ×3 (10:15→12:09)
[2019-07-12] MEDS: methylPREDNISolone SOD SUC 125 MG/2 ML VIAL IV SCH (12:30)
[2019-07-12] MEDS: ENOXAPARIN 40 MG/0.4 ML SYRINGE SUBCUT SCH (17:49)
[2019-07-12] MEDS ORDERED: INSULIN GLARGINE 100 UNIT/ML SUBCUT SCH (21:00)
[2019-07-12] MEDS: GABAPENTIN 400 MG CAPSULE PO SCH (21:27)
[2019-07-13] MEDS: INSULIN REGULAR 100 UNIT/ML SUBCUT SCH ×5 (01:00→23:44)
[2019-07-13] MEDS: methylPREDNISolone SOD SUC 125 MG/2 ML VIAL IV SCH ×3 (01:05→23:44)
[2019-07-13] MEDS: PANTOPRAZOLE 40 MG VIAL IV SCH (02:05)
[2019-07-13] MEDS: MORPHINE 4 MG/1 ML VIAL IV PRN ×2 (03:43→08:02)
[2019-07-13] MEDS: oxyCODONE/ACETAMINOPHEN 5-325 MG TABLET PO PRN ×3 (05:11→21:49)
[2019-07-13 05:25] LABS: Basophils % 0.1 % (0.0-0.8); Hematocrit 29.4 VOL% (35.7-47.0); Hemoglobin 9.7 GM/DL (12.0-16.0); Immature Granulocytes % 4.1 %; Lymphocytes # 0.5 10*3/uL (1.4-4.0); Lymphocytes % 6.6 % (21.3-54.2); Mean Corpuscular Volume 86.2 FL (87-102); Mean Platelet Volume 9.6 FL (9.6-12.0); Monocytes % 3.9 % (1.7-12.7); Neutrophils % 85.3 % (38.7-73.9); Platelet Count 271 T/CUMM (130-400); Red Blood Count 3.41 MC/CUMM (3.8-5.5); Red Cell Distribution Width 13.6 % (9.3-17.3); White Blood Count 7.4 T/CUMM (4-12)
[2019-07-13 05:38] LABS: Calcium 8.1 MG/DL (8.5-10.1); Osmolality,Calculated 292.7 MOS/KG (273-304)
[2019-07-13] MEDS: POTASSIUM CHLORIDE RIDER 10 MEQ in PREMIX 1 EACH IV PRN ×2 (07:02→08:18)
[2019-07-13] MEDS ORDERED: POTASSIUM CHLORIDE 20 MEQ TABLET PO ONE (08:22)
[2019-07-13] MEDS ORDERED: INSULIN GLARGINE 100 UNIT/ML SUBCUT SCH (08:22)
[2019-07-13] MEDS: carvediloL 25 MG TABLET PO SCH ×2 (09:03→21:48)
[2019-07-13] MEDS: FUROSEMIDE 40 MG TABLET PO SCH ×2 (09:03→16:25)
[2019-07-13] MEDS: ATORVASTATIN 40 MG TABLET PO SCH (09:03)
[2019-07-13] MEDS: GABAPENTIN 400 MG CAPSULE PO SCH ×3 (09:03→21:49)
[2019-07-13] MEDS: amLODIPine 5 MG TABLET PO SCH (09:04)
[2019-07-13] MEDS: LEVOTHYROXINE 100 MCG TABLET PO SCH (09:04)
[2019-07-13] MEDS: POTASSIUM CHLORIDE RIDER 20 MEQ in PREMIX 1 EACH IV PRN (09:32)
[2019-07-13] MEDS ORDERED: DEXTROSE 50% 25 GM/50 ML VIAL IV PRN (10:05)
[2019-07-13] MEDS ORDERED: GLUCAGON 1 MG VIAL IM PRN (10:05)
[2019-07-13] MEDS: ENOXAPARIN 40 MG/0.4 ML SYRINGE SUBCUT SCH (18:14)
[2019-07-14] MEDS: MORPHINE 4 MG/1 ML VIAL IV PRN (01:32)
[2019-07-14] MEDS: PANTOPRAZOLE 40 MG VIAL IV SCH (03:33)
[2019-07-14] MEDS: INSULIN REGULAR 100 UNIT/ML SUBCUT SCH ×3 (05:44→18:05)
[2019-07-14 05:56] LABS: Basophils % 0.1 % (0.0-0.8); Hemoglobin 9.7 GM/DL (12.0-16.0); Immature Granulocytes % 4.4 %; Immature Granulocytes Absolute 0.32 #; Lymphocytes # 0.5 10*3/uL (1.4-4.0); Lymphocytes % 6.7 % (21.3-54.2); Mean Corpuscular HGB Conc 32.3 GM/DL (32-36); Mean Corpuscular Volume 87.7 FL (87-102); Mean Platelet Volume 9.9 FL (9.6-12.0); Monocytes % 4.7 % (1.7-12.7); Neutrophils % 84.1 % (38.7-73.9); Platelet Count 289 T/CUMM (130-400); Red Blood Count 3.42 MC/CUMM (3.8-5.5); Red Cell Distribution Width 13.3 % (9.3-17.3); White Blood Count 7.3 T/CUMM (4-12)
[2019-07-14 06:15] LABS: Calcium 8.4 MG/DL (8.5-10.1); Osmolality,Calculated 296.1 MOS/KG (273-304)
[2019-07-14] MEDS: oxyCODONE/ACETAMINOPHEN 5-325 MG TABLET PO PRN ×3 (08:36→21:30)
[2019-07-14] MEDS: carvediloL 25 MG TABLET PO SCH ×2 (09:00→20:25)
[2019-07-14] MEDS: ATORVASTATIN 40 MG TABLET PO SCH (09:00)
[2019-07-14] MEDS: GABAPENTIN 400 MG CAPSULE PO SCH ×3 (09:00→20:25)
[2019-07-14] MEDS: LEVOTHYROXINE 100 MCG TABLET PO SCH (09:01)
[2019-07-14] MEDS: amLODIPine 5 MG TABLET PO SCH (09:01)
[2019-07-14] MEDS: FUROSEMIDE 40 MG TABLET PO SCH ×2 (09:01→15:58)
[2019-07-14] MEDS ORDERED: TUBERCULIN SKIN TEST 0.1 ML SYRINGE INTRADERM ONE (09:40)
[2019-07-14] MEDS ORDERED: LOPERAMIDE 2 MG CAPSULE PO PRN (10:55)
[2019-07-14] MEDS: methylPREDNISolone SOD SUC 125 MG/2 ML VIAL IV SCH (12:50)
[2019-07-14] MEDS ORDERED: INSULIN GLARGINE 100 UNIT/ML SUBCUT SCH (13:11)
[2019-07-14] MEDS: ENOXAPARIN 40 MG/0.4 ML SYRINGE SUBCUT SCH (18:05)
[2019-07-15] MEDS: INSULIN REGULAR 100 UNIT/ML SUBCUT SCH ×3 (00:32→11:55)
[2019-07-15] MEDS: methylPREDNISolone SOD SUC 125 MG/2 ML VIAL IV SCH ×2 (00:33→11:55)
[2019-07-15] MEDS: oxyCODONE/ACETAMINOPHEN 5-325 MG TABLET PO PRN ×2 (03:05→09:05)
[2019-07-15] MEDS: PANTOPRAZOLE 40 MG VIAL IV SCH (03:50)
[2019-07-15] MEDS: LEVOTHYROXINE 100 MCG TABLET PO SCH (09:06)
[2019-07-15] MEDS: carvediloL 25 MG TABLET PO SCH (09:06)
[2019-07-15] MEDS: GABAPENTIN 400 MG CAPSULE PO SCH ×2 (09:06→16:28)
[2019-07-15] MEDS: FUROSEMIDE 40 MG TABLET PO SCH (09:06)
[2019-07-15] MEDS: ATORVASTATIN 40 MG TABLET PO SCH (09:06)
[2019-07-15] MEDS: amLODIPine 5 MG TABLET PO SCH (09:06)
[2019-07-15 12:18] VITALS: BP 169/67
== END 2019-07-15 15:06 | DRG 492 ==
LOC: EDUNIT# → EDBD → N.ED 00:09 → SUATTDRO 02:04 → N.EDINP 02:04 → N.ICU 02:35 → N.3E 07-11 12:37
PROVIDERS: ADMIT Internal Medicine; ATTEND Internal Medicine

== ENCOUNTER 2022-01-04 16:36 | Inpatient (IN) ==
[2022-01-04] MEDS ORDERED: ACETAMINOPHEN 325 MG TABLET PO PRN (20:57)
[2022-01-04] MEDS ORDERED: GLUCAGON 1 MG VIAL IM PRN (20:57)
[2022-01-04] MEDS ORDERED: ONDANSETRON 4 MG/2 ML VIAL IV PRN (20:57)
[2022-01-04] MEDS ORDERED: hydrALAZINE 20 MG/1 ML VIAL IV PRN (20:57)
[2022-01-04] MEDS ORDERED: DEXTROSE 10% 250 ML BAG IV PRN (21:06)
[2022-01-04 21:45] LABS: Basophils % 0.4 % (0.0-0.8); Eosinophils # 0.3 10*3/uL (0.0-0.87); Eosinophils % 2.7 % (0.00-10.9); Hematocrit 32.8 VOL% (35.7-47.0); Hemoglobin 10.4 GM/DL (12.0-16.0); Immature Granulocytes % 0.5 %; Immature Granulocytes Absolute 0.05 #; Lymphocytes # 1.4 10*3/uL (1.4-4.0); Lymphocytes % 12.9 % (21.3-54.2); Mean Corpuscular HGB Conc 31.7 GM/DL (32-36); Mean Corpuscular Volume 88.6 FL (87-102); Monocytes % 10.2 % (1.7-12.7); Neutrophils % 73.3 % (38.7-73.9); Platelet Count 148 T/CUMM (130-400); Red Cell Distribution Width 14.2 % (9.3-17.3)
[2022-01-04 21:56] LABS: INR 1.1; PT Patient Result 12.5 SECS (10.5-12.0); Partial Thromboplastin Time 27.5 SECS (23.8-32.1)
[2022-01-04 22:28] LABS: Risk Ratio 2.65; VLDL Cholesterol 23.2 MG/DL
[2022-01-04 22:36] LABS: Bilirubin,Total 0.6 MG/DL (0.20-1.00); Osmolality,Calculated 279.5 MOS/KG (273-304); Potassium 3.9 MMOL/L (3.5-5.1); Thyroid Stimulating Hormone 1.58 uIU/ml (0.358-3.74); Total Protein 6.7 G/DL (6.4-8.2)
[2022-01-04] MEDS: DOCUSATE SODIUM 100 MG CAPSULE PO SCH (23:07)
[2022-01-05] MEDS ORDERED: POTASSIUM CHLORIDE 20 MEQ TABLET PO PRN (00:03)
[2022-01-05] MEDS ORDERED: MAGNESIUM SULF RIDER 4 GM/100 ML PREMIX IV PRN (00:03)
[2022-01-05] MEDS ORDERED: MAGNESIUM SULF RIDER 2 GM/50 ML PREMIX IV PRN (00:03)
[2022-01-05] MEDS ORDERED: POTASSIUM CHLORIDE RIDER 10 MEQ/100 ML PREMIX IV PRN (00:03)
[2022-01-05 01:30] LABS: Bacteria,Urine Moderate /HPF (Few); Mucus,Urine Occasional /LPF (Occasional); RBC,Urine 10 /HPF (0-4); Squamous Epithelial Cell,Urine Occasional /HPF (0-10)
[2022-01-05 01:31] LABS: Bilirubin,Urine Negative (Negative); Blood, Urine Trace mg/dL (Negative); Glucose,Urine (UA) Negative (Negative); Ketones,Urine Negative (Negative); Nitrite,Urine Positive (Negative); Urine Specific Gravity 1.015 (1.001-1.035); Urine Urobilinogen 0.2 eU/dL (<2.0); Urine pH 5.5 (4.5-8.0)
[2022-01-05 01:32] LABS: Protein,Urine Negative (Negative); Urine Appearance Clear (Clear); Urine Color Yellow (Yellow)
[2022-01-05] MEDS: INSULIN REGULAR 100 UNIT/ML SUBCUT SCH ×4 (08:37→21:13)
[2022-01-05] MEDS: PANTOPRAZOLE 40 MG TABLET PO SCH (09:54)
[2022-01-05] MEDS: DOCUSATE SODIUM 100 MG CAPSULE PO SCH ×2 (09:54→21:12)
[2022-01-05] MEDS ORDERED: cefTRIAXone 1,000 MG in SODIUM CHLORIDE 0.9% 100 ML IV SCH (10:00)
[2022-01-05] MEDS: LEVOFLOXACIN INJ 250 MG/50 ML PREMIX IV SCH (11:09)
[2022-01-05 13:50] LABS: Basophils % 0.4 % (0.0-0.8); Eosinophils # 0.2 10*3/uL (0.0-0.87); Eosinophils % 2.1 % (0.00-10.9); Hematocrit 31.3 VOL% (35.7-47.0); Hemoglobin 10.1 GM/DL (12.0-16.0); Immature Granulocytes % 0.9 %; Immature Granulocytes Absolute 0.09 #; Lymphocytes # 1.1 10*3/uL (1.4-4.0); Mean Corpuscular HGB Conc 32.3 GM/DL (32-36); Mean Corpuscular Volume 88.7 FL (87-102); Mean Platelet Volume 10.5 FL (9.6-12.0); Monocytes % 11.6 % (1.7-12.7); Platelet Count 175 T/CUMM (130-400); Red Blood Count 3.53 MC/CUMM (3.8-5.5); Red Cell Distribution Width 14.5 % (9.3-17.3); White Blood Count 10.1 T/CUMM (4-12)
[2022-01-05 14:12] LABS: Calcium 8.8 MG/DL (8.5-10.1); Osmolality,Calculated 278.1 MOS/KG (273-304); Potassium 4.2 MMOL/L (3.5-5.1)
[2022-01-05] MEDS: MORPHINE 2 MG/1 ML SYRINGE IV PRN (23:41)
[2022-01-06 06:49] LABS: Calcium 8.5 MG/DL (8.5-10.1)
[2022-01-06 07:27] LABS: Basophils % 0.3 % (0.0-0.8); Eosinophils # 0.4 10*3/uL (0.0-0.87); Eosinophils % 5.3 % (0.00-10.9); Hematocrit 29.2 VOL% (35.7-47.0); Hemoglobin 9.5 GM/DL (12.0-16.0); Immature Granulocytes % 1.4 %; Immature Granulocytes Absolute 0.09 #; Lymphocytes # 1.3 10*3/uL (1.4-4.0); Mean Corpuscular HGB Conc 32.5 GM/DL (32-36); Mean Corpuscular Volume 87.2 FL (87-102); Mean Platelet Volume 9.9 FL (9.6-12.0); Monocytes % 14.9 % (1.7-12.7); Neutrophils % 59.1 % (38.7-73.9); Platelet Count 182 T/CUMM (130-400); Red Blood Count 3.35 MC/CUMM (3.8-5.5); Red Cell Distribution Width 14.4 % (9.3-17.3); White Blood Count 6.6 T/CUMM (4-12)
[2022-01-06] MEDS: INSULIN REGULAR 100 UNIT/ML SUBCUT SCH ×4 (07:58→21:24)
[2022-01-06] MEDS: PANTOPRAZOLE 40 MG TABLET PO SCH ×2 (08:22→10:45)
[2022-01-06] MEDS: DOCUSATE SODIUM 100 MG CAPSULE PO SCH ×2 (08:22→21:23)
[2022-01-06 08:51] LABS: Eosinophils 8 % (0-10); Lymphocytes 24 % (20-55); Ovalocytes Few; Platelet Estimate Adequate; Polychromasia Slight; Segmented Neutrophils 58 % (50-85); Total Cells Counted 100
[2022-01-06] MEDS ORDERED: NON-FORMULARY MEDICATION (Omeprazole 20 mg Capsule,Delayed Release(Dr/Ec)) PO SCH (09:30)
[2022-01-06] MEDS: FAMOTIDINE 20 MG TABLET PO SCH ×2 (10:43→21:22)
[2022-01-06] MEDS: LEVOTHYROXINE 100 MCG TABLET PO SCH (10:44)
[2022-01-06] MEDS: DICYCLOMINE 10 MG CAPSULE PO SCH ×2 (10:44→21:23)
[2022-01-06] MEDS: GABAPENTIN 300 MG CAPSULE PO SCH (10:44)
[2022-01-06] MEDS: METOPROLOL TARTRATE 50 MG TABLET PO SCH (10:44)
[2022-01-06] MEDS: FENOFIBRATE 160 MG TABLET PO SCH (10:44)
[2022-01-06] MEDS: CHOLECALCIFEROL 1,000 UNIT TABLET PO SCH (10:44)
[2022-01-06] MEDS: ESCITALOPRAM 10 MG TABLET PO SCH (10:44)
[2022-01-06] MEDS: LEVOFLOXACIN INJ 250 MG/50 ML PREMIX IV SCH (10:45)
[2022-01-06] MEDS: MORPHINE 2 MG/1 ML SYRINGE IV PRN ×2 (11:02→18:26)
[2022-01-06] MEDS: HYOSCYAMINE 0.125 MG TABLET PO SCH ×3 (12:55→21:23)
[2022-01-06] MEDS: CYPROHEPTADINE 4 MG TABLET PO SCH ×2 (16:06→21:23)
[2022-01-06] MEDS: GABAPENTIN 600 MG TABLET PO SCH (21:22)
[2022-01-06] MEDS: traZODone 50 MG TABLET PO SCH (21:23)
[2022-01-06] MEDS: ATORVASTATIN 40 MG TABLET PO SCH (21:23)
[2022-01-06] MEDS: DONEPEZIL 5 MG TABLET PO SCH (21:23)
[2022-01-07] MEDS: LEVOTHYROXINE 100 MCG TABLET PO SCH (05:30)
[2022-01-07] MEDS: MORPHINE 2 MG/1 ML SYRINGE IV PRN ×3 (05:33→19:24)
[2022-01-07 07:08] LABS: Basophils % 0.3 % (0.0-0.8); Eosinophils # 0.3 10*3/uL (0.0-0.87); Eosinophils % 4.3 % (0.00-10.9); Hematocrit 28.6 VOL% (35.7-47.0); Hemoglobin 9.2 GM/DL (12.0-16.0); Immature Granulocytes % 0.9 %; Immature Granulocytes Absolute 0.06 #; Lymphocytes # 1.4 10*3/uL (1.4-4.0); Mean Corpuscular HGB Conc 32.2 GM/DL (32-36); Mean Corpuscular Volume 88.3 FL (87-102); Mean Platelet Volume 10.5 FL (9.6-12.0); Neutrophils % 60.5 % (38.7-73.9); Platelet Count 233 T/CUMM (130-400); Red Blood Count 3.24 MC/CUMM (3.8-5.5); Red Cell Distribution Width 14.5 % (9.3-17.3)
[2022-01-07 07:27] LABS: Calcium 8.7 MG/DL (8.5-10.1); Osmolality,Calculated 279.5 MOS/KG (273-304); Potassium 4.1 MMOL/L (3.5-5.1)
[2022-01-07] MEDS: INSULIN REGULAR 100 UNIT/ML SUBCUT SCH ×4 (07:40→21:54)
[2022-01-07] MEDS: ESCITALOPRAM 10 MG TABLET PO SCH (08:38)
[2022-01-07] MEDS: METOPROLOL TARTRATE 50 MG TABLET PO SCH (08:38)
[2022-01-07] MEDS: DOCUSATE SODIUM 100 MG CAPSULE PO SCH ×2 (08:38→20:40)
[2022-01-07] MEDS: CHOLECALCIFEROL 1,000 UNIT TABLET PO SCH (08:38)
[2022-01-07] MEDS: HYOSCYAMINE 0.125 MG TABLET PO SCH ×4 (08:40→20:39)
[2022-01-07] MEDS: GABAPENTIN 300 MG CAPSULE PO SCH (08:40)
[2022-01-07] MEDS: DICYCLOMINE 10 MG CAPSULE PO SCH ×2 (08:40→20:40)
[2022-01-07] MEDS: PANTOPRAZOLE 40 MG TABLET PO SCH (08:40)
[2022-01-07] MEDS: FENOFIBRATE 160 MG TABLET PO SCH (08:40)
[2022-01-07] MEDS: FAMOTIDINE 20 MG TABLET PO SCH ×2 (08:40→20:40)
[2022-01-07] MEDS: CYPROHEPTADINE 4 MG TABLET PO SCH ×3 (08:40→20:40)
[2022-01-07] MEDS: LEVOFLOXACIN INJ 250 MG/50 ML PREMIX IV SCH (12:52)
[2022-01-07] MEDS: ENOXAPARIN 30 MG/0.3 ML SYRINGE SUBCUT SCH (20:39)
[2022-01-07] MEDS: traZODone 50 MG TABLET PO SCH (20:40)
[2022-01-07] MEDS: MELATONIN 3 MG TABLET PO PRN (20:40)
[2022-01-07] MEDS: GABAPENTIN 600 MG TABLET PO SCH (20:40)
[2022-01-07] MEDS: DONEPEZIL 5 MG TABLET PO SCH (20:40)
[2022-01-07] MEDS: ATORVASTATIN 40 MG TABLET PO SCH (20:40)
[2022-01-08] MEDS: LEVOTHYROXINE 100 MCG TABLET PO SCH (06:00)
[2022-01-08 06:09] LABS: Basophils % 0.4 % (0.0-0.8); Eosinophils # 0.3 10*3/uL (0.0-0.87); Eosinophils % 5.2 % (0.00-10.9); Hematocrit 29.9 VOL% (35.7-47.0); Hemoglobin 9.5 GM/DL (12.0-16.0); Immature Granulocytes % 0.9 %; Immature Granulocytes Absolute 0.05 #; Lymphocytes # 1.2 10*3/uL (1.4-4.0); Lymphocytes % 22.5 % (21.3-54.2); Mean Corpuscular HGB Conc 31.8 GM/DL (32-36); Mean Corpuscular Volume 87.7 FL (87-102); Mean Platelet Volume 9.8 FL (9.6-12.0); Monocytes % 16.1 % (1.7-12.7); Neutrophils % 54.9 % (38.7-73.9); Platelet Count 293 T/CUMM (130-400); Red Blood Count 3.41 MC/CUMM (3.8-5.5); Red Cell Distribution Width 14.6 % (9.3-17.3); White Blood Count 5.3 T/CUMM (4-12)
[2022-01-08 06:24] LABS: Potassium 4.2 MMOL/L (3.5-5.1)
[2022-01-08 06:34] LABS: Eosinophils 9 % (0-10); Hypochromia 1+; Lymphocytes 15 % (20-55); Microcytosis 1+; Platelet Estimate Adequate; Segmented Neutrophils 67 % (50-85); Total Cells Counted 100
[2022-01-08] MEDS: INSULIN REGULAR 100 UNIT/ML SUBCUT SCH ×4 (08:14→21:41)
[2022-01-08] MEDS: FENOFIBRATE 160 MG TABLET PO SCH (08:32)
[2022-01-08] MEDS: CYPROHEPTADINE 4 MG TABLET PO SCH ×3 (08:32→20:29)
[2022-01-08] MEDS: HYOSCYAMINE 0.125 MG TABLET PO SCH ×4 (08:32→20:29)
[2022-01-08] MEDS: FAMOTIDINE 20 MG TABLET PO SCH ×2 (08:33→20:30)
[2022-01-08] MEDS: GABAPENTIN 300 MG CAPSULE PO SCH (08:33)
[2022-01-08] MEDS: ESCITALOPRAM 10 MG TABLET PO SCH (08:33)
[2022-01-08] MEDS: PANTOPRAZOLE 40 MG TABLET PO SCH (08:33)
[2022-01-08] MEDS: CHOLECALCIFEROL 1,000 UNIT TABLET PO SCH (08:33)
[2022-01-08] MEDS: METOPROLOL TARTRATE 50 MG TABLET PO SCH (08:33)
[2022-01-08] MEDS: DOCUSATE SODIUM 100 MG CAPSULE PO SCH ×2 (08:33→20:29)
[2022-01-08] MEDS: DICYCLOMINE 10 MG CAPSULE PO SCH ×2 (08:33→20:30)
[2022-01-08] MEDS: AZTREONAM 500 MG in SODIUM CHLORIDE 0.9% 100 ML IV SCH ×2 (11:13→21:29)
[2022-01-08] MEDS: MORPHINE 2 MG/1 ML SYRINGE IV PRN ×2 (12:24→19:29)
[2022-01-08] MEDS: traZODone 50 MG TABLET PO SCH (20:29)
[2022-01-08] MEDS: ENOXAPARIN 30 MG/0.3 ML SYRINGE SUBCUT SCH (20:29)
[2022-01-08] MEDS: MELATONIN 3 MG TABLET PO PRN (20:29)
[2022-01-08] MEDS: GABAPENTIN 600 MG TABLET PO SCH (20:30)
[2022-01-08] MEDS: DONEPEZIL 5 MG TABLET PO SCH (20:30)
[2022-01-08] MEDS: ATORVASTATIN 40 MG TABLET PO SCH (20:30)
[2022-01-08] MEDS: oxyCODONE/ACETAMINOPHEN 5-325 MG TABLET PO PRN (20:30)
[2022-01-09 05:08] LABS: Basophils % 0.4 % (0.0-0.8); Eosinophils # 0.3 10*3/uL (0.0-0.87); Eosinophils % 5.8 % (0.00-10.9); Hematocrit 28.4 VOL% (35.7-47.0); Immature Granulocytes % 1.4 %; Immature Granulocytes Absolute 0.07 #; Lymphocytes # 1.4 10*3/uL (1.4-4.0); Mean Corpuscular HGB Conc 31.7 GM/DL (32-36); Mean Corpuscular Volume 88.2 FL (87-102); Mean Platelet Volume 11.3 FL (9.6-12.0); Monocytes % 13.3 % (1.7-12.7); Neutrophils % 52.1 % (38.7-73.9); Platelet Count 323 T/CUMM (130-400); Red Blood Count 3.22 MC/CUMM (3.8-5.5); Red Cell Distribution Width 14.6 % (9.3-17.3)
[2022-01-09 05:24] LABS: Calcium 8.7 MG/DL (8.5-10.1); Osmolality,Calculated 279.7 MOS/KG (273-304); Potassium 4.4 MMOL/L (3.5-5.1)
[2022-01-09] MEDS: LEVOTHYROXINE 100 MCG TABLET PO SCH (06:19)
[2022-01-09] MEDS: INSULIN REGULAR 100 UNIT/ML SUBCUT SCH ×4 (07:47→22:33)
[2022-01-09] MEDS: GABAPENTIN 300 MG CAPSULE PO SCH (08:16)
[2022-01-09] MEDS: PANTOPRAZOLE 40 MG TABLET PO SCH (08:17)
[2022-01-09] MEDS: DOCUSATE SODIUM 100 MG CAPSULE PO SCH ×2 (08:17→20:49)
[2022-01-09] MEDS: ESCITALOPRAM 10 MG TABLET PO SCH (08:17)
[2022-01-09] MEDS: METOPROLOL TARTRATE 50 MG TABLET PO SCH (08:17)
[2022-01-09] MEDS: FENOFIBRATE 160 MG TABLET PO SCH (08:17)
[2022-01-09] MEDS: CHOLECALCIFEROL 1,000 UNIT TABLET PO SCH (08:17)
[2022-01-09] MEDS: FAMOTIDINE 20 MG TABLET PO SCH ×2 (08:18→20:50)
[2022-01-09] MEDS: HYOSCYAMINE 0.125 MG TABLET PO SCH ×4 (08:18→20:49)
[2022-01-09] MEDS: DICYCLOMINE 10 MG CAPSULE PO SCH ×2 (08:18→20:49)
[2022-01-09] MEDS: CYPROHEPTADINE 4 MG TABLET PO SCH ×3 (08:18→20:49)
[2022-01-09] MEDS: AZTREONAM 500 MG in SODIUM CHLORIDE 0.9% 100 ML IV SCH ×2 (10:40→20:48)
[2022-01-09] MEDS ORDERED: POLYETHYLENE GLYCOL POWDER 17 GM PACK PO PRN (13:13)
[2022-01-09] MEDS: traZODone 50 MG TABLET PO SCH (20:49)
[2022-01-09] MEDS: ENOXAPARIN 30 MG/0.3 ML SYRINGE SUBCUT SCH (20:49)
[2022-01-09] MEDS: GABAPENTIN 600 MG TABLET PO SCH (20:49)
[2022-01-09] MEDS: DONEPEZIL 5 MG TABLET PO SCH (20:49)
[2022-01-09] MEDS: MELATONIN 3 MG TABLET PO PRN (20:50)
[2022-01-09] MEDS: oxyCODONE/ACETAMINOPHEN 5-325 MG TABLET PO PRN (20:50)
[2022-01-09] MEDS: ATORVASTATIN 40 MG TABLET PO SCH (20:50)
[2022-01-10] MEDS: LEVOTHYROXINE 100 MCG TABLET PO SCH (05:41)
[2022-01-10] MEDS: INSULIN REGULAR 100 UNIT/ML SUBCUT SCH ×4 (08:37→21:24)
[2022-01-10] MEDS: DICYCLOMINE 10 MG CAPSULE PO SCH ×2 (08:44→20:53)
[2022-01-10] MEDS: HYOSCYAMINE 0.125 MG TABLET PO SCH ×4 (08:44→20:52)
[2022-01-10] MEDS: ESCITALOPRAM 10 MG TABLET PO SCH (08:44)
[2022-01-10] MEDS: FAMOTIDINE 20 MG TABLET PO SCH ×2 (08:44→20:53)
[2022-01-10] MEDS: CYPROHEPTADINE 4 MG TABLET PO SCH ×3 (08:44→20:52)
[2022-01-10] MEDS: GABAPENTIN 300 MG CAPSULE PO SCH (08:45)
[2022-01-10] MEDS: PANTOPRAZOLE 40 MG TABLET PO SCH (08:45)
[2022-01-10] MEDS: FENOFIBRATE 160 MG TABLET PO SCH (08:45)
[2022-01-10] MEDS: DOCUSATE SODIUM 100 MG CAPSULE PO SCH ×2 (08:45→20:53)
[2022-01-10] MEDS: METOPROLOL TARTRATE 50 MG TABLET PO SCH (08:45)
[2022-01-10] MEDS: CHOLECALCIFEROL 1,000 UNIT TABLET PO SCH (08:49)
[2022-01-10] MEDS: oxyCODONE/ACETAMINOPHEN 5-325 MG TABLET PO PRN ×2 (08:49→13:04)
[2022-01-10] MEDS: AZTREONAM 500 MG in SODIUM CHLORIDE 0.9% 100 ML IV SCH ×2 (08:50→22:08)
[2022-01-10] MEDS: GABAPENTIN 600 MG TABLET PO SCH (20:52)
[2022-01-10] MEDS: ENOXAPARIN 30 MG/0.3 ML SYRINGE SUBCUT SCH (20:52)
[2022-01-10] MEDS: traZODone 50 MG TABLET PO SCH (20:52)
[2022-01-10] MEDS: ATORVASTATIN 40 MG TABLET PO SCH (20:52)
[2022-01-10] MEDS: DONEPEZIL 5 MG TABLET PO SCH (20:52)
[2022-01-10] MEDS: MELATONIN 3 MG TABLET PO PRN (20:53)
[2022-01-11] MEDS: LEVOTHYROXINE 100 MCG TABLET PO SCH (06:00)
[2022-01-11 06:05] LABS: Basophils % 0.3 % (0.0-0.8); Eosinophils # 0.4 10*3/uL (0.0-0.87); Eosinophils % 6.6 % (0.00-10.9); Hematocrit 27.9 VOL% (35.7-47.0); Hemoglobin 8.7 GM/DL (12.0-16.0); Immature Granulocytes % 1.6 %; Lymphocytes # 1.3 10*3/uL (1.4-4.0); Lymphocytes % 20.4 % (21.3-54.2); Mean Corpuscular HGB Conc 31.2 GM/DL (32-36); Mean Corpuscular Volume 90.6 FL (87-102); Monocytes % 10.9 % (1.7-12.7); Neutrophils % 60.2 % (38.7-73.9); Platelet Count 383 T/CUMM (130-400); Red Blood Count 3.08 MC/CUMM (3.8-5.5); Red Cell Distribution Width 14.8 % (9.3-17.3); White Blood Count 6.4 T/CUMM (4-12)
[2022-01-11 06:28] LABS: Calcium 8.9 MG/DL (8.5-10.1); Osmolality,Calculated 279.7 MOS/KG (273-304); Potassium 4.4 MMOL/L (3.5-5.1)
[2022-01-11] MEDS: CHOLECALCIFEROL 1,000 UNIT TABLET PO SCH (08:38)
[2022-01-11] MEDS: CYPROHEPTADINE 4 MG TABLET PO SCH ×3 (08:38→21:36)
[2022-01-11] MEDS: GABAPENTIN 300 MG CAPSULE PO SCH (08:38)
[2022-01-11] MEDS: DICYCLOMINE 10 MG CAPSULE PO SCH ×2 (08:38→21:36)
[2022-01-11] MEDS: DOCUSATE SODIUM 100 MG CAPSULE PO SCH ×2 (08:38→21:36)
[2022-01-11] MEDS: FAMOTIDINE 20 MG TABLET PO SCH ×2 (08:39→21:36)
[2022-01-11] MEDS: ESCITALOPRAM 10 MG TABLET PO SCH (08:39)
[2022-01-11] MEDS: HYOSCYAMINE 0.125 MG TABLET PO SCH ×4 (08:39→21:36)
[2022-01-11] MEDS: FENOFIBRATE 160 MG TABLET PO SCH (08:39)
[2022-01-11] MEDS: PANTOPRAZOLE 40 MG TABLET PO SCH (08:39)
[2022-01-11] MEDS: METOPROLOL TARTRATE 50 MG TABLET PO SCH (08:39)
[2022-01-11] MEDS: oxyCODONE/ACETAMINOPHEN 5-325 MG TABLET PO PRN ×2 (08:40→16:00)
[2022-01-11] MEDS: AZTREONAM 500 MG in SODIUM CHLORIDE 0.9% 100 ML IV SCH ×2 (10:05→21:36)
[2022-01-11] MEDS: INSULIN REGULAR 100 UNIT/ML SUBCUT SCH ×4 (10:06→21:16)
[2022-01-11] MEDS: DONEPEZIL 5 MG TABLET PO SCH (21:36)
[2022-01-11] MEDS: ENOXAPARIN 30 MG/0.3 ML SYRINGE SUBCUT SCH (21:36)
[2022-01-11] MEDS: GABAPENTIN 600 MG TABLET PO SCH (21:36)
[2022-01-11] MEDS: ATORVASTATIN 40 MG TABLET PO SCH (21:36)
[2022-01-11] MEDS: traZODone 50 MG TABLET PO SCH (21:37)
[2022-01-12] MEDS: LEVOTHYROXINE 100 MCG TABLET PO SCH (05:46)
[2022-01-12 06:56] LABS: Hematocrit 31.7 VOL% (35.7-47.0); Hemoglobin 9.8 GM/DL (12.0-16.0)
[2022-01-12 07:27] LABS: Calcium 9.2 MG/DL (8.5-10.1); Osmolality,Calculated 277.8 MOS/KG (273-304); Potassium 4.2 MMOL/L (3.5-5.1)
[2022-01-12] MEDS: CYPROHEPTADINE 4 MG TABLET PO SCH ×3 (08:12→21:34)
[2022-01-12] MEDS: FENOFIBRATE 160 MG TABLET PO SCH (08:12)
[2022-01-12] MEDS: HYOSCYAMINE 0.125 MG TABLET PO SCH ×4 (08:12→21:34)
[2022-01-12] MEDS: ESCITALOPRAM 10 MG TABLET PO SCH (08:13)
[2022-01-12] MEDS: CHOLECALCIFEROL 1,000 UNIT TABLET PO SCH (08:14)
[2022-01-12] MEDS: DICYCLOMINE 10 MG CAPSULE PO SCH ×2 (08:14→21:33)
[2022-01-12] MEDS: DOCUSATE SODIUM 100 MG CAPSULE PO SCH ×2 (08:15→21:33)
[2022-01-12] MEDS: METOPROLOL TARTRATE 50 MG TABLET PO SCH (08:15)
[2022-01-12] MEDS: FAMOTIDINE 20 MG TABLET PO SCH ×2 (08:15→21:35)
[2022-01-12] MEDS: PANTOPRAZOLE 40 MG TABLET PO SCH (08:15)
[2022-01-12] MEDS: GABAPENTIN 300 MG CAPSULE PO SCH (08:15)
[2022-01-12] MEDS: oxyCODONE/ACETAMINOPHEN 5-325 MG TABLET PO PRN ×2 (08:16→21:34)
[2022-01-12] MEDS: INSULIN REGULAR 100 UNIT/ML SUBCUT SCH ×4 (08:42→21:35)
[2022-01-12] MEDS: AZTREONAM 500 MG in SODIUM CHLORIDE 0.9% 100 ML IV SCH ×2 (09:26→21:41)
[2022-01-12] MEDS: traZODone 50 MG TABLET PO SCH (21:33)
[2022-01-12] MEDS: DONEPEZIL 5 MG TABLET PO SCH (21:33)
[2022-01-12] MEDS: GABAPENTIN 600 MG TABLET PO SCH (21:34)
[2022-01-12] MEDS: ENOXAPARIN 30 MG/0.3 ML SYRINGE SUBCUT SCH (21:35)
[2022-01-12] MEDS: ATORVASTATIN 40 MG TABLET PO SCH (21:35)
[2022-01-13] MEDS: LEVOTHYROXINE 100 MCG TABLET PO SCH (06:26)
[2022-01-13] MEDS: INSULIN REGULAR 100 UNIT/ML SUBCUT SCH ×4 (08:34→20:17)
[2022-01-13] MEDS: AZTREONAM 500 MG in SODIUM CHLORIDE 0.9% 100 ML IV SCH ×2 (08:34→21:56)
[2022-01-13] MEDS: ESCITALOPRAM 10 MG TABLET PO SCH (08:35)
[2022-01-13] MEDS: GABAPENTIN 300 MG CAPSULE PO SCH (08:35)
[2022-01-13] MEDS: PANTOPRAZOLE 40 MG TABLET PO SCH (08:36)
[2022-01-13] MEDS: METOPROLOL TARTRATE 50 MG TABLET PO SCH (08:36)
[2022-01-13] MEDS: FAMOTIDINE 20 MG TABLET PO SCH ×2 (08:37→21:56)
[2022-01-13] MEDS: CHOLECALCIFEROL 1,000 UNIT TABLET PO SCH (08:37)
[2022-01-13] MEDS: DICYCLOMINE 10 MG CAPSULE PO SCH ×2 (08:37→21:56)
[2022-01-13] MEDS: FENOFIBRATE 160 MG TABLET PO SCH (08:37)
[2022-01-13] MEDS: DOCUSATE SODIUM 100 MG CAPSULE PO SCH ×2 (08:37→21:56)
[2022-01-13] MEDS: HYOSCYAMINE 0.125 MG TABLET PO SCH ×4 (08:37→21:57)
[2022-01-13] MEDS: CYPROHEPTADINE 4 MG TABLET PO SCH ×3 (09:01→21:57)
[2022-01-13] MEDS: oxyCODONE/ACETAMINOPHEN 5-325 MG TABLET PO PRN ×2 (09:03→15:15)
[2022-01-13] MEDS: GABAPENTIN 600 MG TABLET PO SCH (21:56)
[2022-01-13] MEDS: DONEPEZIL 5 MG TABLET PO SCH (21:56)
[2022-01-13] MEDS: ATORVASTATIN 40 MG TABLET PO SCH (21:56)
[2022-01-13] MEDS: traZODone 50 MG TABLET PO SCH (21:57)
[2022-01-13] MEDS: ENOXAPARIN 30 MG/0.3 ML SYRINGE SUBCUT SCH (21:57)
[2022-01-14] MEDS: LEVOTHYROXINE 100 MCG TABLET PO SCH (05:30)
[2022-01-14] MEDS: oxyCODONE/ACETAMINOPHEN 5-325 MG TABLET PO PRN ×3 (05:44→22:40)
[2022-01-14 07:05] LABS: Basophils % 0.3 % (0.0-0.8); Eosinophils # 0.4 10*3/uL (0.0-0.87); Eosinophils % 5.6 % (0.00-10.9); Hematocrit 27.9 VOL% (35.7-47.0); Hemoglobin 8.8 GM/DL (12.0-16.0); Immature Granulocytes % 0.8 %; Immature Granulocytes Absolute 0.05 #; Lymphocytes # 1.4 10*3/uL (1.4-4.0); Lymphocytes % 21.3 % (21.3-54.2); Mean Corpuscular HGB Conc 31.5 GM/DL (32-36); Mean Corpuscular Volume 90.3 FL (87-102); Mean Platelet Volume 10.1 FL (9.6-12.0); Platelet Count 411 T/CUMM (130-400); Red Blood Count 3.09 MC/CUMM (3.8-5.5); Red Cell Distribution Width 15.2 % (9.3-17.3); White Blood Count 6.5 T/CUMM (4-12)
[2022-01-14 07:18] LABS: Calcium 8.9 MG/DL (8.5-10.1); Osmolality,Calculated 281.5 MOS/KG (273-304); Potassium 4.1 MMOL/L (3.5-5.1)
[2022-01-14] MEDS: INSULIN REGULAR 100 UNIT/ML SUBCUT SCH ×4 (07:24→23:59)
[2022-01-14] MEDS: AZTREONAM 500 MG in SODIUM CHLORIDE 0.9% 100 ML IV SCH ×2 (08:48→22:40)
[2022-01-14] MEDS: CYPROHEPTADINE 4 MG TABLET PO SCH ×3 (08:49→22:41)
[2022-01-14] MEDS: CHOLECALCIFEROL 1,000 UNIT TABLET PO SCH (08:49)
[2022-01-14] MEDS: PANTOPRAZOLE 40 MG TABLET PO SCH (08:49)
[2022-01-14] MEDS: FAMOTIDINE 20 MG TABLET PO SCH ×2 (08:49→22:41)
[2022-01-14] MEDS: DOCUSATE SODIUM 100 MG CAPSULE PO SCH ×2 (08:49→22:42)
[2022-01-14] MEDS: METOPROLOL TARTRATE 50 MG TABLET PO SCH (08:49)
[2022-01-14] MEDS: HYOSCYAMINE 0.125 MG TABLET PO SCH ×4 (08:49→22:41)
[2022-01-14] MEDS: ESCITALOPRAM 10 MG TABLET PO SCH (08:49)
[2022-01-14] MEDS: DICYCLOMINE 10 MG CAPSULE PO SCH ×2 (08:49→22:41)
[2022-01-14] MEDS: FENOFIBRATE 160 MG TABLET PO SCH (08:49)
[2022-01-14] MEDS: GABAPENTIN 300 MG CAPSULE PO SCH (08:49)
[2022-01-14 11:35] LABS: Bacteria,Urine Occasional /HPF (Few); RBC,Urine 3 /HPF (0-4); Squamous Epithelial Cell,Urine Occasional /HPF (0-10); Urine Appearance Slightly Hazy (Clear); Urine Color Straw (Yellow)
[2022-01-14 11:36] LABS: Bilirubin,Urine Negative (Negative); Blood, Urine Small mg/dL (Negative); Glucose,Urine (UA) Negative (Negative); Ketones,Urine Negative (Negative); Nitrite,Urine Negative (Negative); Protein,Urine Negative (Negative); Urine Specific Gravity 1.015 (1.001-1.035); Urine Urobilinogen 0.2 eU/dL (<2.0)
[2022-01-14] MEDS: ENOXAPARIN 30 MG/0.3 ML SYRINGE SUBCUT SCH (22:40)
[2022-01-14] MEDS: ATORVASTATIN 40 MG TABLET PO SCH (22:41)
[2022-01-14] MEDS: GABAPENTIN 600 MG TABLET PO SCH (22:41)
[2022-01-14] MEDS: traZODone 50 MG TABLET PO SCH (22:41)
[2022-01-14] MEDS: DONEPEZIL 5 MG TABLET PO SCH (22:42)
[2022-01-15] MEDS: LEVOTHYROXINE 100 MCG TABLET PO SCH (05:33)
[2022-01-15 05:46] LABS: Basophils % 0.4 % (0.0-0.8); Eosinophils # 0.3 10*3/uL (0.0-0.87); Eosinophils % 6.2 % (0.00-10.9); Hematocrit 26.6 VOL% (35.7-47.0); Hemoglobin 8.3 GM/DL (12.0-16.0); Immature Granulocytes % 0.7 %; Immature Granulocytes Absolute 0.04 #; Lymphocytes # 1.5 10*3/uL (1.4-4.0); Lymphocytes % 27.7 % (21.3-54.2); Mean Corpuscular HGB Conc 31.2 GM/DL (32-36); Mean Corpuscular Volume 90.5 FL (87-102); Monocytes % 11.2 % (1.7-12.7); Neutrophils % 53.8 % (38.7-73.9); Platelet Count 355 T/CUMM (130-400); Red Blood Count 2.94 MC/CUMM (3.8-5.5); Red Cell Distribution Width 15.1 % (9.3-17.3); White Blood Count 5.5 T/CUMM (4-12)
[2022-01-15 05:53] LABS: Osmolality,Calculated 280.7 MOS/KG (273-304); Potassium 4.2 MMOL/L (3.5-5.1)
[2022-01-15] MEDS: GABAPENTIN 300 MG CAPSULE PO SCH (08:47)
[2022-01-15] MEDS: DICYCLOMINE 10 MG CAPSULE PO SCH ×2 (08:48→20:29)
[2022-01-15] MEDS: CYPROHEPTADINE 4 MG TABLET PO SCH ×3 (08:48→20:30)
[2022-01-15] MEDS: METOPROLOL TARTRATE 50 MG TABLET PO SCH (08:48)
[2022-01-15] MEDS: FAMOTIDINE 20 MG TABLET PO SCH ×2 (08:48→20:29)
[2022-01-15] MEDS: FENOFIBRATE 160 MG TABLET PO SCH (08:48)
[2022-01-15] MEDS: PANTOPRAZOLE 40 MG TABLET PO SCH (08:48)
[2022-01-15] MEDS: CHOLECALCIFEROL 1,000 UNIT TABLET PO SCH (08:48)
[2022-01-15] MEDS: oxyCODONE/ACETAMINOPHEN 5-325 MG TABLET PO PRN ×2 (08:48→20:29)
[2022-01-15] MEDS: ESCITALOPRAM 10 MG TABLET PO SCH (08:48)
[2022-01-15] MEDS: DOCUSATE SODIUM 100 MG CAPSULE PO SCH ×2 (08:48→20:30)
[2022-01-15] MEDS: HYOSCYAMINE 0.125 MG TABLET PO SCH ×4 (08:48→20:29)
[2022-01-15] MEDS: INSULIN REGULAR 100 UNIT/ML SUBCUT SCH ×4 (08:50→20:34)
[2022-01-15] MEDS: AZTREONAM 500 MG in SODIUM CHLORIDE 0.9% 100 ML IV SCH ×2 (12:52→22:01)
[2022-01-15] MEDS: AMOXICILLIN 500 MG CAPSULE PO SCH (15:09)
[2022-01-15] MEDS: ATORVASTATIN 40 MG TABLET PO SCH (20:29)
[2022-01-15] MEDS: GABAPENTIN 600 MG TABLET PO SCH (20:30)
[2022-01-15] MEDS: DONEPEZIL 5 MG TABLET PO SCH (20:30)
[2022-01-15] MEDS: traZODone 50 MG TABLET PO SCH (20:30)
[2022-01-15] MEDS: ENOXAPARIN 30 MG/0.3 ML SYRINGE SUBCUT SCH (20:34)
[2022-01-16 06:05] LABS: Basophils % 0.3 % (0.0-0.8); Eosinophils # 0.3 10*3/uL (0.0-0.87); Eosinophils % 5.7 % (0.00-10.9); Hematocrit 26.4 VOL% (35.7-47.0); Hemoglobin 8.4 GM/DL (12.0-16.0); Immature Granulocytes % 0.7 %; Immature Granulocytes Absolute 0.04 #; Lymphocytes # 1.5 10*3/uL (1.4-4.0); Lymphocytes % 25.8 % (21.3-54.2); Mean Corpuscular HGB Conc 31.8 GM/DL (32-36); Mean Corpuscular Volume 89.8 FL (87-102); Monocytes % 10.7 % (1.7-12.7); Neutrophils % 56.8 % (38.7-73.9); Platelet Count 344 T/CUMM (130-400); Red Blood Count 2.94 MC/CUMM (3.8-5.5); Red Cell Distribution Width 15.1 % (9.3-17.3); White Blood Count 5.8 T/CUMM (4-12)
[2022-01-16] MEDS: LEVOTHYROXINE 100 MCG TABLET PO SCH (06:05)
[2022-01-16] MEDS: INSULIN REGULAR 100 UNIT/ML SUBCUT SCH (06:41)
[2022-01-16 06:48] LABS: Osmolality,Calculated 286.4 MOS/KG (273-304)
[2022-01-16] MEDS: FENOFIBRATE 160 MG TABLET PO SCH (08:49)
[2022-01-16] MEDS: HYOSCYAMINE 0.125 MG TABLET PO SCH (08:49)
[2022-01-16] MEDS: FAMOTIDINE 20 MG TABLET PO SCH (08:50)
[2022-01-16] MEDS: GABAPENTIN 300 MG CAPSULE PO SCH (08:50)
[2022-01-16] MEDS: DICYCLOMINE 10 MG CAPSULE PO SCH (08:50)
[2022-01-16] MEDS: ESCITALOPRAM 10 MG TABLET PO SCH (08:50)
[2022-01-16] MEDS: PANTOPRAZOLE 40 MG TABLET PO SCH (08:50)
[2022-01-16] MEDS: METOPROLOL TARTRATE 50 MG TABLET PO SCH (08:50)
[2022-01-16] MEDS: AMOXICILLIN 500 MG CAPSULE PO SCH (08:50)
[2022-01-16] MEDS: CHOLECALCIFEROL 1,000 UNIT TABLET PO SCH (08:50)
[2022-01-16] MEDS: DOCUSATE SODIUM 100 MG CAPSULE PO SCH (08:50)
[2022-01-16] MEDS: CYPROHEPTADINE 4 MG TABLET PO SCH (08:50)
[2022-01-16] MEDS: oxyCODONE/ACETAMINOPHEN 5-325 MG TABLET PO PRN (08:53)
[2022-01-16 11:45] VITALS: BP 111/50
== END 2022-01-16 16:54 | DRG 534 ==
LOC: N.3E 20:18 → SUATTDRO 20:18
PROVIDERS: ADMIT Internal Medicine; ATTEND Internal Medicine

== ENCOUNTER 2022-11-13 18:12 | Inpatient (IN) ==
[2022-11-14 00:47] LABS: Basophils % 0.4 % (0.0-0.8); Eosinophils # 0.3 10*3/uL (0.0-0.87); Eosinophils % 4.5 % (0.00-10.9); Hematocrit 36.3 VOL% (35.7-47.0); Hemoglobin 11.5 GM/DL (12.0-16.0); Immature Granulocytes % 0.6 %; Immature Granulocytes Absolute 0.04 #; Lymphocytes # 0.6 10*3/uL (1.4-4.0); Lymphocytes % 9.5 % (21.3-54.2); Mean Corpuscular HGB Conc 31.7 GM/DL (32-36); Mean Corpuscular Volume 90.8 FL (87-102); Mean Platelet Volume 11.4 FL (9.6-12.0); Monocytes # 0.5 10*3/uL (0.11-0.8); Platelet Count 197 T/CUMM (130-400); Red Cell Distribution Width 13.3 % (9.3-17.3); White Blood Count 6.7 T/CUMM (4-12)
[2022-11-14] MEDS ORDERED: ONDANSETRON 4 MG/2 ML VIAL IV PRN (00:47)
[2022-11-14] MEDS ORDERED: ZALEPLON 5 MG CAPSULE PO PRN (00:47)
[2022-11-14] MEDS ORDERED: NICOTINE 21 MG/24 HR PATCH TRANSDERM PRN (00:47)
[2022-11-14] MEDS ORDERED: MORPHINE 2 MG/1 ML SYRINGE IV PRN (00:47)
[2022-11-14] MEDS ORDERED: guaiFENesin/DM ER 600-30 MG TABLET PO PRN (00:47)
[2022-11-14] MEDS ORDERED: diphenhydrAMINE CAP 25 MG CAPSULE PO PRN (00:47)
[2022-11-14] MEDS ORDERED: hydrALAZINE 20 MG/1 ML VIAL IV PRN (00:47)
[2022-11-14 00:53] LABS: Calcium 9.4 MG/DL (8.5-10.1); Osmolality,Calculated 283.8 MOS/KG (273-304)
[2022-11-14] MEDS: ALBUTEROL/IPRATROPIUM 3 ML NEB RESP TX SCH ×4 (00:59→19:48)
[2022-11-14] MEDS ORDERED: MAGNESIUM SULF RIDER 1 GM/100 ML PREMIX IV ONE (01:30)
[2022-11-14] MEDS: DEXTROSE 5% NACL 0.9% 1,000 ML IV SCH (01:50)
[2022-11-14 01:53] LABS: INR 1.1; PT Patient Result 12.1 SECS (10.1-12.1); Partial Thromboplastin Time 30.9 SECS (23.7-32.9)
[2022-11-14] MEDS: CLINDAMYCIN INJ 600 MG/50 ML PREMIX IV SCH ×3 (03:21→17:00)
[2022-11-14] MEDS: oxyCODONE/ACETAMINOPHEN 5-325 MG TABLET PO PRN ×3 (04:50→21:55)
[2022-11-14] MEDS: PANTOPRAZOLE 40 MG TABLET PO SCH (09:27)
[2022-11-14] MEDS: ATORVASTATIN 40 MG TABLET PO SCH (09:27)
[2022-11-14] MEDS: BISACODYL 5 MG TABLET PO SCH (09:27)
[2022-11-14] MEDS: INSULIN LISPRO 100 UNIT/ML SUBCUT SCH ×4 (09:54→21:58)
[2022-11-14] MEDS: ACETAMINOPHEN 325 MG TABLET PO PRN (11:34)
[2022-11-14] MEDS ORDERED: VANCOMYCIN INJ 1,250 MG in SODIUM CHLORIDE 0.9% 250 ML IV SCH (18:00)
[2022-11-14] MEDS: GABAPENTIN 600 MG TABLET PO SCH (21:55)
[2022-11-14] MEDS: traZODone 50 MG TABLET PO SCH (21:57)
[2022-11-15] MEDS: ALBUTEROL/IPRATROPIUM 3 ML NEB RESP TX SCH ×4 (00:19→20:09)
[2022-11-15] MEDS: CLINDAMYCIN INJ 600 MG/50 ML PREMIX IV SCH ×2 (01:11→09:50)
[2022-11-15] MEDS: DEXTROSE 5% NACL 0.9% 1,000 ML IV SCH ×2 (01:15→20:13)
[2022-11-15 06:12] LABS: Calcium 8.8 MG/DL (8.5-10.1); Osmolality,Calculated 288.8 MOS/KG (273-304); Potassium 3.5 MMOL/L (3.5-5.1)
[2022-11-15 06:38] LABS: Basophils % 0.5 % (0.0-0.8); Eosinophils # 0.3 10*3/uL (0.0-0.87); Eosinophils % 6.1 % (0.00-10.9); Hematocrit 28.2 VOL% (35.7-47.0); Immature Granulocytes % 0.2 %; Immature Granulocytes Absolute 0.01 #; Lymphocytes # 0.7 10*3/uL (1.4-4.0); Lymphocytes % 17.4 % (21.3-54.2); Mean Corpuscular HGB Conc 31.9 GM/DL (32-36); Mean Corpuscular Volume 89.2 FL (87-102); Mean Platelet Volume 9.7 FL (9.6-12.0); Monocytes # 0.3 10*3/uL (0.11-0.8); Monocytes % 8.3 % (1.7-12.7); Neutrophils % 67.5 % (38.7-73.9); Red Blood Count 3.16 MC/CUMM (3.8-5.5); Red Cell Distribution Width 13.6 % (9.3-17.3); White Blood Count 4.1 T/CUMM (4-12)
[2022-11-15 06:42] LABS: Platelet Count 234 T/CUMM (130-400)
[2022-11-15] MEDS: oxyCODONE/ACETAMINOPHEN 5-325 MG TABLET PO PRN ×2 (07:03→20:13)
[2022-11-15] MEDS: INSULIN LISPRO 100 UNIT/ML SUBCUT SCH ×4 (08:03→20:24)
[2022-11-15] MEDS ORDERED: methylPREDNISolone ACETATE 40 MG/1 ML VIAL INTRAARTIC ONE (09:00)
[2022-11-15] MEDS ORDERED: LIDOCAINE 1% 20 ML VIAL MISC INJ ONE (09:00)
[2022-11-15] MEDS: GABAPENTIN 300 MG CAPSULE PO SCH (09:47)
[2022-11-15] MEDS: BISACODYL 5 MG TABLET PO SCH (09:48)
[2022-11-15] MEDS: ATORVASTATIN 40 MG TABLET PO SCH (09:49)
[2022-11-15] MEDS: PANTOPRAZOLE 40 MG TABLET PO SCH (09:49)
[2022-11-15] MEDS: cefTRIAXone 2,000 MG in SODIUM CHLORIDE 0.9% 100 ML IV SCH (12:47)
[2022-11-15] MEDS: traZODone 50 MG TABLET PO SCH (20:13)
[2022-11-15] MEDS: GABAPENTIN 600 MG TABLET PO SCH (20:13)
[2022-11-15] MEDS: ACETAMINOPHEN 325 MG TABLET PO PRN (23:29)
[2022-11-16] MEDS: ALBUTEROL/IPRATROPIUM 3 ML NEB RESP TX SCH ×4 (02:50→18:58)
[2022-11-16 04:52] LABS: Basophils % 0.3 % (0.0-0.8); Eosinophils % 0.5 % (0.00-10.9); Hematocrit 26.6 VOL% (35.7-47.0); Hemoglobin 8.5 GM/DL (12.0-16.0); Immature Granulocytes % 0.8 %; Immature Granulocytes Absolute 0.03 #; Lymphocytes # 0.6 10*3/uL (1.4-4.0); Lymphocytes % 14.8 % (21.3-54.2); Mean Corpuscular Volume 91.1 FL (87-102); Monocytes # 0.3 10*3/uL (0.11-0.8); Monocytes % 8.3 % (1.7-12.7); Neutrophils % 75.3 % (38.7-73.9); Platelet Count 225 T/CUMM (130-400); Red Blood Count 2.92 MC/CUMM (3.8-5.5); Red Cell Distribution Width 13.6 % (9.3-17.3)
[2022-11-16 05:13] LABS: Calcium 8.6 MG/DL (8.5-10.1); Osmolality,Calculated 294.8 MOS/KG (273-304); Potassium 3.7 MMOL/L (3.5-5.1)
[2022-11-16] MEDS: ATORVASTATIN 40 MG TABLET PO SCH (09:00)
[2022-11-16] MEDS: BISACODYL 5 MG TABLET PO SCH (09:00)
[2022-11-16] MEDS: GABAPENTIN 300 MG CAPSULE PO SCH (09:01)
[2022-11-16] MEDS: PANTOPRAZOLE 40 MG TABLET PO SCH (09:02)
[2022-11-16] MEDS: INSULIN LISPRO 100 UNIT/ML SUBCUT SCH ×4 (09:04→21:09)
[2022-11-16] MEDS: oxyCODONE/ACETAMINOPHEN 5-325 MG TABLET PO PRN ×2 (09:30→21:07)
[2022-11-16] MEDS: cefTRIAXone 2,000 MG in SODIUM CHLORIDE 0.9% 100 ML IV SCH (09:30)
[2022-11-16] MEDS: DEXTROSE 5% NACL 0.9% 1,000 ML IV SCH (13:00)
[2022-11-16] MEDS: GABAPENTIN 600 MG TABLET PO SCH (21:06)
[2022-11-16] MEDS: traZODone 50 MG TABLET PO SCH (21:06)
[2022-11-17] MEDS: ALBUTEROL/IPRATROPIUM 3 ML NEB RESP TX SCH ×2 (00:42→09:06)
[2022-11-17 04:39] LABS: Basophils % 0.5 % (0.0-0.8); Eosinophils # 0.4 10*3/uL (0.0-0.87); Eosinophils % 9.3 % (0.00-10.9); Hematocrit 29.2 VOL% (35.7-47.0); Hemoglobin 9.1 GM/DL (12.0-16.0); Immature Granulocytes % 0.7 %; Immature Granulocytes Absolute 0.03 #; Lymphocytes % 22.6 % (21.3-54.2); Mean Corpuscular HGB Conc 31.2 GM/DL (32-36); Mean Corpuscular Volume 91.5 FL (87-102); Mean Platelet Volume 9.7 FL (9.6-12.0); Monocytes # 0.4 10*3/uL (0.11-0.8); Monocytes % 8.6 % (1.7-12.7); Neutrophils % 58.3 % (38.7-73.9); Platelet Count 238 T/CUMM (130-400); Red Blood Count 3.19 MC/CUMM (3.8-5.5); Red Cell Distribution Width 13.7 % (9.3-17.3); White Blood Count 4.29 T/CUMM (4-12)
[2022-11-17 05:07] LABS: Calcium 8.9 MG/DL (8.5-10.1); Potassium 4.2 MMOL/L (3.5-5.1)
[2022-11-17] MEDS: DEXTROSE 5% NACL 0.9% 1,000 ML IV SCH (05:31)
[2022-11-17] MEDS: INSULIN LISPRO 100 UNIT/ML SUBCUT SCH ×2 (07:36→12:30)
[2022-11-17] MEDS: GABAPENTIN 300 MG CAPSULE PO SCH (08:53)
[2022-11-17] MEDS: ATORVASTATIN 40 MG TABLET PO SCH (08:54)
[2022-11-17] MEDS: BISACODYL 5 MG TABLET PO SCH (08:54)
[2022-11-17] MEDS: oxyCODONE/ACETAMINOPHEN 5-325 MG TABLET PO PRN (08:54)
[2022-11-17] MEDS: PANTOPRAZOLE 40 MG TABLET PO SCH (08:56)
[2022-11-17] MEDS: cefTRIAXone 2,000 MG in SODIUM CHLORIDE 0.9% 100 ML IV SCH (09:30)
[2022-11-17 12:44] VITALS: BP 149/80
== END 2022-11-17 13:19 | DRG 603 ==
LOC: N.3E → SUATTDRO 23:39
PROVIDERS: ADMIT Internal Medicine; ATTEND Emergency Medicine